=== PATIENT | female | born 1940 | race Caucasian/White ===

== ENCOUNTER 2022-09-23 18:28 | Outpatient (RCR) | payer MEDICARE, OTHER, SELFPAY | END 2022-10-17 23:59 | disposition home or self-care (01) | LOC: MM 18:28 | PROVIDERS: PCP Internal Medicine; Visit Provider Internal Medicine | DX: Z51.81 Encounter for therapeutic drug level monitoring (principal); Z79.01 Long term (current) use of anticoagulants; I48.0 Paroxysmal atrial fibrillation | CPT/HCPCS: 85610; G0463 ==

== ENCOUNTER 2022-10-22 10:41 | Outpatient (RCR) | payer MEDICARE, OTHER, SELFPAY | END 2022-11-17 17:14 | disposition home or self-care (01) | LOC: MM 10:41 | PROVIDERS: PCP Internal Medicine; Visit Provider Internal Medicine | DX: Z51.81 Encounter for therapeutic drug level monitoring (principal); Z79.01 Long term (current) use of anticoagulants; I48.0 Paroxysmal atrial fibrillation | CPT/HCPCS: 85610; G0463 ==

== ENCOUNTER 2022-11-18 10:05 | Outpatient (RCR) | payer MEDICARE, OTHER, SELFPAY | END 2022-12-18 17:48 | disposition home or self-care (01) | LOC: MM 10:05 | PROVIDERS: PCP Internal Medicine; Visit Provider Internal Medicine | DX: Z51.81 Encounter for therapeutic drug level monitoring (principal); Z79.01 Long term (current) use of anticoagulants; I48.0 Paroxysmal atrial fibrillation ==

== ENCOUNTER 2022-12-19 10:45 | Outpatient (RCR) | payer MEDICARE, OTHER, SELFPAY | END 2023-01-16 17:08 | disposition home or self-care (01) | LOC: MM 10:45 | PROVIDERS: PCP Internal Medicine; Visit Provider Internal Medicine | DX: Z51.81 Encounter for therapeutic drug level monitoring (principal); Z79.01 Long term (current) use of anticoagulants; I48.0 Paroxysmal atrial fibrillation ==

== ENCOUNTER 2023-01-19 03:49 | Outpatient (RCR) | payer MEDICARE, OTHER, SELFPAY | END 2023-02-17 17:49 | disposition home or self-care (01) | LOC: MM 03:49 | PROVIDERS: PCP Internal Medicine; Visit Provider Internal Medicine | DX: Z51.81 Encounter for therapeutic drug level monitoring (principal); Z79.01 Long term (current) use of anticoagulants; I48.0 Paroxysmal atrial fibrillation ==

== ENCOUNTER 2023-02-18 00:35 | Outpatient (RCR) | payer MEDICARE, OTHER, SELFPAY | END 2023-03-19 16:54 | disposition home or self-care (01) | LOC: MM 00:35 | PROVIDERS: PCP Internal Medicine; Visit Provider Internal Medicine | DX: Z51.81 Encounter for therapeutic drug level monitoring (principal); Z79.01 Long term (current) use of anticoagulants; I48.0 Paroxysmal atrial fibrillation ==

== ENCOUNTER 2023-02-25 12:21 | Outpatient (OUT) | payer MEDICARE, OTHER, SELFPAY ==
--- NOTE | 2023-02-25 | MR_ITS ---
The [address] [address] Patient Name: GAGE ALEXANDRE MRN: [id number] date: 1940 Sex: F Assigned Patient Location: MRI Current Patient Location: MRI Accession/Order Number: [id number] Exam Date: 02/25/2023 12:35 Report Date: 02/25/2023 14:14 At the request of: JAMIA JACOBS Procedure: MR angio head wo con EXAMINATION: MR angio head wo con HISTORY: I48.0 paroxysmal a-fib as well as] suggesting something and abdomen was sometimes gets all her COMPARISON: No relevant comparison available. TECHNIQUE: A variety of imaging planes and parameters were utilized for visualization of suspected pathology. Images were performed without contrast. FINDINGS: CEREBRUM: No edema, hemorrhage, mass, acute infarction, or inappropriate atrophy. CEREBELLUM: No edema, hemorrhage, mass, acute infarction, or inappropriate atrophy. BRAINSTEM: No edema, hemorrhage, mass, acute infarction, or inappropriate atrophy. CSF SPACES: 8 mm rounded area of absent versus very low signal on T2 and T1 sequences at the anterior inferior margin of the left sylvian fissure. No internal blood flow on [id number] images Ventricles, cisterns, and sulci are appropriate for age. No hydrocephalus, subarachnoid hemorrhage, or mass. SKULL: No mass or other significant visible lesion. SINUSES: Complete opacification of right maxillary sinus; no fluid level. ORBITS: Limited views are unremarkable. OTHER: Negative. MR/MR angio head wo con IMPRESSION: 1. No intercranial hemorrhage, mass, or mass effect. 2. 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 Calcification is suspected. A CT study of the brain without and with IV contrast could be performed for further evaluation if needed. 3. Right maxillary marked chronic sinusitis; possibly acute on chronic sinusitis. 4. Age consistent atrophy and chronic small vessel ischemic changes. Electronically authenticated by: MELINA ALEXANDRE Date: 02/25/2023 14:14
--- NOTE | 2023-02-25 | ECG_ITS ---
The [facility] Test Date: 2023-02-25 Pat Name: Keri Herron Department: Room: - Gender: Female Registered Nurse Renal: : 1940 Requested By: JAMIA JACOBS Order Number: [id number] Reading MD: EZIO CUELLAR Measurements Intervals [place] Rate: 57 P: 89 MT: 179 QRS: 83 QRSD: 80 T: 55 QT: 415 QTc: 405 Interpretive Statements SINUS BRADYCARDIA WITH SINUS ARRHYTHMIA No previous ECG available for comparison Electronically Signed On 02-27-2023 6:20:01 EST by EZIO CUELLAR
--- OUTSIDE RECORDS SUMMARY | 2023-04-07 14:13 | XMS_ITS | CCD ---
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 Name Role Phone PRERNA, Abdias Joshi Attending Unavailable NILL, Abdias Joshi Attending Unavailable NILL, Abdias Joshi Attending Unavailable Wali Flores Unavailable MARK, DR BLANDON Primary Care Unavailable BALL, DR BLANDON Consulting Unavailable BALL, DR BLANDON Attending Unavailable BALL, DR BLANDON Admitting Unavailable BALL, DR BLANDON Primary Care Unavailable FAWWAD, H Admitting Unavailable FAWWAD, SHAIKH aJylan Attending Unavailable BALL, DR BLANDON Primary Care Unavailable FAWWAD, H Admitting Unavailable FAWWAD, H Attending Unavailable BALL, DR BLANDON Primary Care Unavailable FAWWAD, MAYER H Admitting Unavailable FAWWAD, H Attending Unavailable FAWWAD, H Admitting Unavailable FAWWAD, MAYER H Attending Unavailable BALL, DR BLANDON Primary Care Unavailable FAWWAD, SHAIKH Jaylan Attending Unavailable FAWWAD, H Admitting Unavailable BALL, DR BLANDON Primary Care Unavailable NADEREAdi, DR VINCENT Lopez Attending Unavailable NILL ., DR YOO Procedure Practitioner Paula ANNE, DR KEVYN Joshi Consulting Unavailable BALL, DR BLANDON Primary Care Unavailable ENOCEREAdi, DR VINCENT Lopez Admitting Unavailable SMITH ., DR JENNIFER Feuntes Consulting Unavailable WEST, DR JANE Godoy Consulting Unavailable SHELLIEEBKATEY, DR ROHAN Joshi Consulting Unavailable NADEREAdi, DR VINCENT Lopez Consulting Unavailable NILL ., DR YOO Consulting Unavailable AGUBOSIM, FUAD Consulting Unavailable VORA, SANDRO Consulting Unavailable REQUEST, DR MALLORY LISTED Consulting Unavaila ble REQUEST, DR MALLORY LISTED Attending Unavaila ble MARK, DR BLANDON Primary Care Unavailable REQUEST, DR MALLORY LISTED Admitting Unavaila ble BALL, DR BLANDON Primary Care Unavailable BALL, DR BLANDON Attending DR WALI Maxwell Admitting Unavailable BALL, DR BLANDON Primary Care Vianey FLORES, DR BLANDON Consulting Unavailable MARK, DR BLANDON Attending Unavailable MARK, DR BLANDON Admitting Unavailable Allergies Allergy Classification Reported Allergen(s) Allergy Type Date of Onset Reaction(s) Facility (3 sources) HYDROmorphone; Translations: [HYDROmorphone] Drug Allergy [address] [facility] Repository (3 sources) Penicillins; Translations: [penicillins] Propensity to adverse reactions (disorder) [address] [facility] Repository (11 sources) penicillAMINE Drug Allergy Unknown [employer] Other (7 sources) Substance with penicillin structure and antibacterial mechanism of action (substance) Drug allergy 2 PENICILLINS [employer] [facility] Other Medications Current Medications Medication Drug Class(es) Dates Sig (Normalized) Sig (Original) [id number] actuat albuterol 0.09 mg/actuat metered dose inhaler (20 sources) beta2-Adrenergic Agonist Start: 02-17-2023 take 2 puff(s) by inhalation every four hours as needed for cough Albuterol Sulfate HFA 108 (90 Base) MCG/ACT 2 puffs Inhalation every 4 hrs as needed for cough, SOB for 30 days Jan, Active Start: 02-17-2023 take 2 puff(s) by in halation every four hours as needed for cough Albuterol Sulfate HFA 108 (90 Base) MCG/ACT 2 puffs Inhalation every 4 hrs as needed for cough, SOB for 30 days Jan, Active Start: 02-17-2023 take 2 puff(s) by in halation every four hours as needed for cough Albuterol Sulfate HFA 108 (90 Base) MCG/ACT 2 puffs Inhalation every 4 hrs as needed for cough, SOB for 30 days Jan, Active Start: 04-27-2022 Ventolin HFA 1 08 (90 Base) MCG/ACT 1 Inhalation every 4 hrs for 30 days Apr, Not-Taking/PRN take 1 puff(s) by in halation every four hours as needed Ventolin HFA 108 (90 Base) MCG/ACT 1 puff as needed Inhalation every 4 hrs Active atorvastatin 20 mg oral tablet (3 sources) HMG-CoA Reductase Inhibitor Start: 03-23-2023 take 1 tablet by mouth every twenty-four hours Atorvastatin Calcium 20 MG 1 tablet Orally Once a day for 30 days Mar, Active cholecalciferol 0.05 mg oral capsule (6 sources) Vitamin D Prevagen 10 MG a s directed Orally Active colestipol hydrochloride 1000 mg oral tablet (11 sources) Bile Acid Sequestrant take 2 tablets by mouth once daily Colestipol HCl 1 GM TAKE 2 TABLETS BY MOUTH EVERY DAY FOR 30 DAYS Active take 2 tablets by mouth once brady ly Colestipol HCl 1 GM TAKE 2 TABLETS BY MOUTH EVERY DAY FOR 30 DAYS Active donepezil hydrochloride 5 mg oral tablet (1 source) Start: 03-31-2023 take 1 tablet by mouth every twenty-four hours Donepezil HCl 5 MG 1 tablet at bedtime Orally Once a day for 30 days Mar, Active montelukast 10 mg oral tablet (16 sources) Leukotriene Receptor Antagonist Start: 04-27-2022 Montelukast Sodium 10 MG 1 Orally Once a day for 30 days Apr, Active warfarin sodium 4 mg oral tablet (11 sources) Vitamin K Antagonist take 1 tablet by mouth once daily Warfarin Sodium 4 MG TAKE 1 TABLET BY MOUTH EVERY DAY Active Completed/Discontinued Medications Medication Drug Class(es) Dates Sig (Normalized) Sig (Original) metoprolol tartrate 25 mg oral tablet (16 sources) beta-Adrenergic Lisa Start: 04-27-2022 Metoprolol Tartrate 25 MG 1 Orally daily as needed for HR > 100 for 30 day(s) Apr, Not-Taking/PRN take 1 tablet by manda th every twelve hours Metoprolol Tartrate 25 MG 1 tablet with food Orally Twice a day Active Problems Active Problems Problem Classification Problem Date Documented Date Episodic/Chronic Abdominal hernia (11 sources) Inguinal hernia; Translations: [Unilateral inguinal hernia, without obstruction or gangrene, not specified as recurrent] Episodic Anxiety disorders (14 sources) Generalized anxiety disorder; Translations: [Generalized anxiety disorder] Chronic Asthma (14 sources) Mild intermittent asthma; Translations: [Mild intermittent asthma, uncomplicated] Chronic Biliary tract disease (15 sources) Postcholecystectomy syndrome; Translations: [Postcholecystectomy syndrome] Onset: Episodic Cardiac dysrhythmias (20 sources) Paroxysmal atrial fibrillation; Translations: [Paroxysmal atrial fibrillation] Onset: 2 Chronic Chronic kidney disease (20 sources) Chronic kidney disease stage 3A ; Translations: [Stage 3a chronic kidney disease] Chronic Coagulation and hemorrhagic disorders (1 source) Thrombocytopenia, unspecified; Translations: [THROMBOCYTOPENIA UNSPECIFIED] Onset: 2 Chronic Delirium, dementia, and amnestic and other cognitive disorders (2 sources) Senile dementia; Translations: [Alzheimer's disease with late onset] Chronic Disorders of lipid metabolism (4 sources) Hypercholesterolemia; Translations: [Pure hypercholesterolemia, unspecified] Chronic Esophageal disorders (11 sources) Gastro-esophageal reflux disease with esophagitis; Translations: [Gastroesophageal reflux disease with esophagitis without hemorrhage] Chronic Fracture of upper limb (11 sources) Closed fracture of scapula; Translations: [Fracture of unspecified part of scapula, unspecified shoulder, initial encounter for closed fracture] Episodic Intestinal obstruction without hernia (14 sources) Small bowel obstruction; Translations: [Unspecified intestinal obstruction, unspecified as to partial versus complete obstruction] Onset: 2 Episodic Malaise and fatigue (14 sources) Fatigue; Translations: [Other fatigue] Onset: 2 Episodic Osteoporosis (14 sources) Senile osteoporosis; Translations: [Age-related osteoporosis without current pathological fracture] Chronic Other aftercare (5 sources) Encounter for therapeutic drug level monitoring; Translations: [ENC THERAPEUTC DRUG LEVL MONITORING] Onset: 3 Episodic Other aftercare (1 source) shelter (current) use of anticoagulants; Translations: [SENIOR LIVING CURRNT USE ANTICOAGULANTS] Onset: 3 Episodic Other circulatory disease (1 source) Other specified symptoms and signs involving the circulatory and respiratory systems Episodic Other gastrointestinal disorders (11 sources) Irritable bowel syndrome with diarrhea; Translations: [Irritable bowel syndrome with diarrhea] Chronic Other gastrointestinal disorders (1 source) Irritable bowel syndrome with diarrhea Chronic Other gastrointestinal disorders (11 sources) Personal history of other diseases of the digestive system; Translations: [History of small bowel obstruction] Episodic Other hereditary and degenerative nervous system conditions (6 sources) Impaired cognition; Translations: [Mild cognitive impairment, so stated] Chronic Other hereditary and degenerative nervous system conditions (3 sources) Mild cognitive impairment, so stated Chronic Other nervous system disorders (11 sources) Paresthesia; Translations: [Paresthesia of skin] Episodic Other nervous system disorders (1 source) Paresthesia of skin Episodic Other nutritional; endocrine; and metabolic disorders (10 sources) Underweight; Translations: [Underweight] Episodic Other nutritional; endocrine; and metabolic disorders (1 source) Underweight; Translations: [Underweight] Episodic Peripheral and visceral atherosclerosis (1 source) Vascular disorder of intestine, unspecified; Translations: [VASCULAR DISORDER INTESTINE UNS] Onset: 2 Chronic Peripheral and visceral atherosclerosis (12 sources) Infarction of small intestine; Translations: [Acute infarction of small intestine, extent unspecified] Episodic Residual codes; unclassified (11 sources) History of excision of small intestine; Translations: [Acquired absence of other specified parts of digestive tract] Episodic Residual codes; unclassified (11 sources) Mammogram declined; Translations: [Procedure and treatment not carried out because of patient's decision for unspecified reasons] Episodic Residual codes; unclassified (2 sources) Procedure and treatment not carried out because of patient's decision for unspecified reasons Episodic Unclassified (1 source) CONTACT W/AND (SUSP) EXPOS COVID-19; Translations: [CONTACT W/AND (SUSP) EXPOS COVID-19] Onset: 2 Past or Other Problems Problem Classification Problem Date Documented Da te Episodic/Chronic Chronic kidney disease (8 sources) Chronic kidney disease; Translations: [CHRONIC KIDNEY DISEASE STAGE 3B] Onset: 01-24-2022 Conditions associated with dizziness or vertigo (1 source) Dizziness and giddiness; Translations: [DIZZINESS AND GIDDINESS] Onset: 04-05-2022 Episodic Esophageal disorders (1 source) Esophageal disorders Genitourinary symptoms and ill-defined conditions (2 sources) Other difficulties with micturition; Translations: [Retention of urine, unspecified] Onset: 01-02-2022 Episodic Other liver diseases (1 source) Abnormal levels of other serum enzymes; Translations: [ABNORMAL LEVELS OTHER SERUM ENZYMES] Onset: 01-02-2022 Episodic Other screening for suspected conditions (not mental disorders or infectious disease) (1 source) Other specified abnormal findings of blood chemistry; Translations: [OTH SPEC ABNORMAL FINDINGS BLD CHEM] Onset: 01-02-2022 Episodic Residual codes; unclassified (2 sources) Acquired absence of other specified parts of digestive tract; Translations: [ACQ ABSENCE OTH PART DIGESTV TRACT] Onset: 01-02-2022 Episodic Residual codes; unclassified (1 source) Acquired absence of both cervix and uterus; Translations: [ACQUIRED ABSENCE BOTH CERVIX AND UTERUS] Onset: 01-02-2022 Episodic Unclassified (1 source) Dementia in other diseases classified elsewhere, mild, without behavioral disturbance, psychotic disturbance, mood disturbance, and anxiety F02.A0 Results Test Name Value Interpretation Reference Range Facil ity CBC AUTO DIFFon 03-31-2022 BASO # 0.1 103/ul Normal 0.0-0.1 [facility] Comment on above: Performed By: #### C BC #### [facility] [address] [place] [address] Dr. Jemma Karu Basophils/100 WBC (Bld) 1.3 % Normal 0.2-2.0 [place] Comment on above: Performed By: #### C BC #### [facility] [address] [place] [address] Dr. Jemma Kaur EO # 0.2 103/ul Normal 0.0-0.7 [facility] Comment on above: Performed By: #### C BC #### [facility] [address] [place] [address] Dr. Jemma Kaur Eosinophils/100 WBC (Bld) 2.5 % Normal 0.9-7.0 [facility] Comment on above: Performed By: #### C BC #### [facility] [address] [place] [address] Dr. Jemma Kaur Erythrocyte distribution wid th (RBC) [Ratio] 12.3 % Normal 11.0-15.0 [facility] Comment on above: Performed By: #### C BC #### [facility] [address] [place] [address] Dr. Jemma Kaur Hematocrit (Bld) [Volume fraction] 43.6 % Normal 3 6.0-48.0 [facility] Comment on above: Performed By: #### C BC #### [facility] [address] [place] [address] Dr. Jemma Kaur Hemoglobin (Bld) [Mass/Vol] 14.7 g/dL Normal 12.0-16. 0 [facility] Comment on above: Performed By: #### C BC #### [facility] [address] [address] [address] Jemma Kaur IG # 0.02 10e3/ul Normal 0.00-0.03 [facility] Comment on above: Performed By: #### C BC #### [facility] [address] [address] [address] Jemma Kaur IG % 0.3 % Normal 0.0-0.5 [facility] Comment on above: Performed By: #### C BC #### [facility] [address] [place] [address] Dr. Jemma Kaur LYMPH # 1.2 103/ul Normal 1.2-3.8 [facility] Comment on above: Performed By: #### C BC #### [facility] [address] [place] [address] Dr. Jemma Kaur Lymphocytes/100 WBC (Bld) 18.7 % Critically low 20.5-6 0.0 [facility] Comment on above: Performed By: #### C BC #### [facility] [address] [place] [address] Dr. Jemma Kaur MANUAL DIFF REQ NO Normal [facility] Comment on above: Performed By: #### C BC #### [facility] [address] [place] [address] Dr. Jemma Kaur MCH (RBC) [Entitic mass] 31.5 pg Normal 26.7-34.0 [facility] Comment on above: Performed By: #### C BC #### [facility] [address] [place] [address] Dr. Jemma Kaur MCHC (RBC) [Mass/Vol] 33.7 g/dL Normal 29.9-35.2 [facility] Comment on above: Performed By: #### C BC #### [facility] [address] [place] [address] Dr. Jemma Kaur MCV (RBC) [Entitic vol] 93.6 fL Normal 81.0-99.0 [place] Comment on above: Performed By: #### C BC #### [facility] [address] [place] [address] Dr. Jemma Kaur MONO # 0.6 103/ul Normal 0.3-0.8 [facility] Comment on above: Performed By: #### C BC #### [facility] [address] [place] [address] Dr. Jemma Kaur Monocytes/100 WBC (Bld) 9.3 % Normal 1.7-12.0 [place] Comment on above: Performed By: #### C BC #### [facility] [address] [place] [address] Dr. Jemma Kaur NEUT # 4.3 103/ul Normal 1.4-6.5 [facility] Comment on above: Performed By: #### C BC #### [facility] [address] [place] [address] Dr. Jemma Kaur Neutrophils/100 WBC (Bld) 67.9 % Normal 43.0-75.0 [facility] Comment on above: Performed By: #### C BC #### [facility] [address] [place] [address] Dr. Jemma Kaur Platelet mean volume (Bld) [ Entitic vol] 10.2 fL Normal 9.5-13.5 [facility] Comment on above: Performed By: #### C BC #### [facility] [address] [place] [address] Dr. Jemma Kaur PLT 159 103/ul Normal 150-450 [facility] Comment on above: Performed By: #### C BC #### [facility] [address] [place] [address] Dr. Jemma Kaur RBC 4.66 106/ul Normal 4.20-5.40 [facility] Comment on above: Performed By: #### C BC #### [facility] [address] [place] [address] Dr. Jemma Kaur WBC 6.4 103/ul Normal 4.0-11.0 [facility] Comment on above: Performed By: #### C BC #### [facility] [address] [address] [address] Jemma Kaur PROF 14(COMP METB)on 022 Albumin [Mass/Vol] 3.4 g/dL Normal 3.4-5.0 [facility] Comment on above: Performed By: #### L IPA, BMP #### [facility] [address] [address] [address] Jemma Kaur Albumin/Globulin [Mass ratio] 1.0 {ratio} Normal [facility] Comment on above: Performed By: #### L IPA, BMP #### [facility] [address] [address] [address] Jemma Kaur ALP [Catalytic activity/Vol] 67 U/L Normal 46-116 [facility] Comment on above: Performed By: #### L IPA, BMP #### [facility] [address] [place] [address] Dr. Jemma Kaur ALT [Catalytic activity/Vol] 15 U/L Normal 14-59 [facility] Comment on above: Performed By: #### L IPA, BMP #### [facility] [address] [address] [address] Jemma Kaur Anion gap [Moles/Vol] 7.8 mmol/L Normal [facility] Comment on above: Performed By: #### L IPA, BMP #### [facility] [address] [address] [address] Jemma Kaur AST [Catalytic activity/Vol] 19 U/L Normal 15-37 [facility] Comment on above: Performed By: #### L IPA, BMP #### [facility] [address] [address] [address] Jemma Kaur Bilirubin [Mass/Vol] 1.2 mg/dL Critically high 0.2-1.0 [facility] Comment on above: Performed By: #### L IPA, BMP #### [facility] [address] [place] [address] Dr. Jemma Kaur Calcium [Mass/Vol] 8.8 mg/dL Normal 8.5-10.1 [facility] Comment on above: Performed By: #### L IPA, BMP #### [facility] [address] [address] [address] Jemma Kaur Chloride [Moles/Vol] 103 mmol/L Normal 98-107 [facility] Comment on above: Performed By: #### L IPA, BMP #### [facility] [address] [address] [address] Jemma Kaur CO2 [Moles/Vol] 31.1 mmol/L Normal 21.0-32.0 [facility] Comment on above: Performed By: #### L IPA, BMP #### [facility] [address] [address] [address] Jemma Kaur Creatinine [Mass/Vol] 0.85 mg/dL Normal 0.55-1.02 [facility] Comment on above: Performed By: #### L IPA, BMP #### [facility] [address] [address] [address] Jemma Kaur EGFR-AF EMIRATI >60 Normal >=60 [facility] Comment on above: Performed By: #### L IPA, BMP #### [facility] [address] [address] [address] Jemma Kaur EGFR-NON AF EMIRATI >60 Normal >=60 [facility] Comment on above: Performed By: #### L IPA, BMP #### [facility] [address] [address] [address] Jemma Kaur Globulin (S) [Mass/Vol] 3.5 g/dL Normal [facility] Comment on above: Performed By: #### L IPA, BMP #### [facility] [address] [address] [address] Jemma Kaur Glucose [Mass/Vol] 78 mg/dL Normal 74-106 [facility] Comment on above: Performed By: #### L IPA, BMP #### [facility] [address] [address] [address] Jemma Kaur Potassium [Moles/Vol] 3.9 mmol/L Normal 3.5-5.1 [facility] Comment on above: Performed By: #### L IPA, BMP #### [facility] [address] [place] [address] Dr. Jemma Kaur Protein [Mass/Vol] 6.9 g/dL Normal 6.4-8.2 [facility] Comment on above: Performed By: #### L IPA, BMP #### [facility] [address] [place] [address] Dr. Jemma Kaur Sodium [Moles/Vol] 138 mmol/L Normal 136-145 [facility] Comment on above: Performed By: #### L IPA, BMP #### [facility] [address] [place] [address] Dr. Jemma Kaur Urea nitrogen [Mass/Vol] 14.0 mg/dL Normal 7.0-18.0 [facility] Comment on above: Performed By: #### L IPA, BMP #### [facility] [address] [place] [address] Dr. Jemma Kaur Urea nitrogen/Creatinine [Mass ratio] 16.5 mg/mg Normal [facility] Comment on above: Performed By: #### L IPA, BMP #### [facility] [address] [place] [address] Dr. Jemma Kaur TSHon 03-31-2022 TSH 1.710 uIU/mL Normal 0.358-3.740 [facility] Comment on above: Performed By: #### L IPA, BMP #### [facility] [address] [place] [address] Dr. Jemma Kaur PROF CHEM 8 (BAS METB)on Anion gap [Moles/Vol] 8.2 mmol/L Normal [facility] Comment on above: Performed By: #### C BCMAN #### [facility] [address] [place] [address] Dr. Jemma Kaur Calcium [Mass/Vol] 9.3 mg/dL Normal 8.5-10.1 [facility] Comment on above: Performed By: #### C BCMAN #### [facility] [address] [place] [address] Dr. Jemma Kaur Chloride [Moles/Vol] 105 mmol/L Normal 98-107 [facility] Comment on above: Performed By: #### C BCMAN #### [facility] [address] [address] [address] Jemma Kaur CO2 [Moles/Vol] 31.9 mmol/L Normal 21.0-32.0 [facility] Comment on above: Performed By: #### C BCMAN #### [facility] [address] [address] [address] Jemma Kaur Creatinine [Mass/Vol] 0.86 mg/dL Normal 0.55-1.02 [facility] Comment on above: Performed By: #### C BCVANESA #### [facility] [address] [address] [address] Jemma Kaur EGFR-AF EMIRATI >60 Normal >=60 [facility] Comment on above: Performed By: #### C BCVANESA #### [facility] [address] [address] [address] Jemma Kaur EGFR-NON AF EMIRATI >60 Normal >=60 [facility] Comment on above: Performed By: #### C BCVANESA #### [facility] [address] [address] [address] Jemma Kaur Glucose [Mass/Vol] 104 mg/dL Normal 74-106 [facility] Comment on above: Performed By: #### C BCMAN #### [facility] [address] [address] [address] Jemma Kaur Potassium [Moles/Vol] 4.1 mmol/L Normal 3.5-5.1 [facility] Comment on above: Performed By: #### C BCMAN #### [facility] [address] [address] [address] Jemma Kaur Sodium [Moles/Vol] 141 mmol/L Normal 136-145 [facility] Comment on above: Performed By: #### C BCMAN #### [facility] [address] [address] [address] Jemma Kaur Urea nitrogen [Mass/Vol] 13.0 mg/dL Normal 7.0-18.0 [facility] Comment on above: Performed By: #### C ZIYAD #### [facility] [address] [address] [address] Jemma Kaur Urea nitrogen/Creatinine [Mass ratio] 15.1 mg/mg Normal [facility] Comment on above: Performed By: #### C ZIYAD #### [facility] [address] [address] [address] Jemma Kaur UA RANDOM W/MICROSCOPICon BACTERIA NONE SEEN Normal NONE SEEN [facility] Comment on above: Performed By: #### U AMIC ####[facility] [address] [address]Dr. Jemma Kaur Bilirubin Ql (U) Negative Normal NEGATIVE [facility] Comment on above: Performed By: #### U AMIC ####[facility] [address] [address]Dr. Jemma Kaur CAST NONE SEEN Normal NONE SEEN [facility] Comment on above: Performed By: #### U AMIC ####[facility] [address] [address]Dr. Jemma Kaur Clarity (U) CLEAR Normal CLEAR [facility] Comment on above: Performed By: #### U AMIC ####[facility] [address] [address]Dr. Jemma Kaur Color (U) LT. YELLOW Normal YELLOW [facility] Comment on above: Performed By: #### U AMIC ####[facility] [address] [address]Dr. Jemma Kaur Crystals LM Nom (Urine sed) NONE SEEN Normal NONE SEE N [facility] Comment on above: Performed By: #### U AMIC ####[facility] [address] [place], [place] [address]Dr. Jemma Kaur Epithelial cells LM Ql (Urine sed) FEW Abnormal N ONE SEEN /RARE [facility] Comment on above: Performed By: #### U AMIC ####[facility] [address] [place], [place] [address]Dr. Jemma Kaur Glucose Ql (U) Negative Normal NEGATIVE [facility] Comment on above: Performed By: #### U AMIC ####[facility] [address] [place], [place] [address]Dr. Jemma Kaur Hemoglobin Ql (U) Negative Normal NEGATIVE The [facility] Comment on above: Performed By: #### U AMIC ####[facility] Ex[address] [place], [place] [address]Dr. Jemma Vincent Ketones Ql (U) Negative Normal NEGATIVE [facility] Comment on above: Performed By: #### U AMIC ####[facility] Z[address] [place], [place] [address]Dr. Jemma Kaur LEUKOCYTES Negative Normal NEGATIVE [facility] Comment on above: Performed By: #### U AMIC ####[facility] E[address] [place], [place] [address]Dr. Jemma Kaur MUCOUS NONE SEEN Normal NONE SEEN [facility] Comment on above: Performed By: #### U AMIC ####[facility] [address] [place], [place] [address]Dr. Jemma Vincent Nitrite Ql (U) Negative Normal NEGATIVE [facility] Comment on above: Performed By: #### U AMIC ####[facility] [address] [place], [place] [address]Dr. Jemma Kaur pH (U) 6.0 [pH] Normal 5-9 [facility] Comment on above: Performed By: #### U AMIC ####[facility] T[address] [place], [place] [address]Dr. Jemma Kaur RBC NONE SEEN Abnormal 0-2 [facility] Comment on above: Performed By: #### U AMIC ####[facility] [address] [place], [place] [address]Dr. Jemma Kaur SPEC GRAVITY 1.015 Normal 1.005-<=1.025 The [facility] Comment on above: Performed By: #### U AMIC ####[facility] [address] [place], [place] [address]Dr. Jemma Kaur UA PROTEIN Negative Normal NEGATIVE/ TRACE The [facility] Comment on above: Performed By: #### U AMIC ####[facility] [address] [place], [place] [address]Sk. Jemma Kaur Urobilinogen Qn (U) 0.2 {Rober'U}/dL Normal 0.2 - 1. 0 [facility] Comment on above: Performed By: #### U AMIC ####[facility] [address] [place], [place] [address]Pq. Jemma Kaur WBC NONE SEEN Normal NONE SEEN [facility] Comment on above: Performed By: #### U AMIC ####[facility] [address] [place], [place] [address]Fi. Jemma Vincent General Surgery Office/Clini c Noteon 12-27-2021 General Surgery Office/Clinic Note Chief Complaint post operative follow up HPI Staff 9 day post operative follow up post exploratory laparotomy with small bowel resection. Minimal discomfort, taking Tylenol 1000mg BID. Denies bleeding or drainage. Reports stools are mostly liquid. Appetite fair. History of Present Illness 9 days s/p exploratory laparotomy for sbo, with GRANT and small bowel resection with enteroenterostomy; doing well; still with loose stools, no N/V; decreased appetite, but tolerating small meals; no fevers, no drainage from incision; taking Tylenol for soreness. Review of Systems PHQ Score Initial Depression Screen Score: 0 ROS - Provider Constitutional: no fever, no sweats, no weight loss. Eyes: no glasses, no blurred vision, no visual loss. ENMT: no dentures, no hoarseness, no swallowing difficulties, no hearing loss, no ear infection(s), no nose bleeds. Cardiovascular: normal blood pressure, no chest pain, regular heartbeat, no heart murmur. Respiratory: no shortness of breath, no cough, no asthma, no wheezing. Gastrointestinal: no nausea, no vomiting, no diarrhea, no constipation, no blood in stool, no change in bowel habits, no abdominal pain, no hepatitis. Genitourinary: no kidney stones, no urine infection, no dysuria. Musculoskeletal: no pain, no weakness. Skin: no changing moles, no rash, no skin lumps. Neurologic: no seizures, no epilepsy, no headache. Psychiatric: no emotional or psychiatric problem. Heme/Lymph: no bleeding problems, no anemia, no blood clots, no transfusions. Allergy/Immunologic: no swollen lymph nodes/glands, no IV drug abuse. Other: Additional ROS info: Except as noted in the above Review of Systems and in the History of Present Illness, all other systems have been reviewed and are negative or noncontributory. Physical Exam abd: soft, normal bs, nondistended, incision healing well, glue intact, no erythema or drainage, no ecchymoses. Assessment/Plan 1. 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 2. 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 Medications albuterol HFA 90 mcg/inh MDI, 2 puff(s), Inhalation, q6hr, PRN Multi Vitamins oral tablet, 1 tab(s), Oral, Daily Allergies HYDROmorphone (Unknown) penicillins (Unknown) Social History Alcohol - Denies Alcohol Use, 12/25/2021 Substance Abuse - Denies Substance Abuse, 12/25/2021 Tobacco Never (less than 100 in lifetime) Tobacco Use:. Never Smokeless Tobacco Use:., 12/25/2021 Family History Alzheimer's disease: Father. Cancer: Mother. Normal [facility] Comment on above: Result Comment: Elec tronically Signed By: PRERNA MAGANA, Abdias Vieira\Date and Time Signed: 12/27/21 17:12 EDT Ambulatory Visit Summaryon 0 12-25-2021 Ambulatory Visit Summary SHELLIEKERI OVALLE :1940 Visit Date:12/25/2021 Ambulatory Visit Instructions Your Care Team Attending Physician - PRERNA MAGANA, Abdias Joshi Primary Care Physician - WALI FLORES DO This Is Your Medications List albuterol (albuterol HFA 90 mcg/inh MDI) multivitamin (Multi Vitamins oral tablet) Procedures Performed Exploratory laparotomy (12/16/2021), Small bowel resection (12/16/2021), Abdominal hysterectomy, Cholecystectomy. Medications What How Much When Instructions Unchanged albuterol (albuterol HFA 90 mcg/ inh MDI) 2 Puffs Inhalation Every 6 hours as needed for Shortness of breath or wheezing Unchanged multivitamin (Multi Vitamins oral tablet) 1 Tablets By Mouth Every day Allergies HYDROmorphone (Unknown) penicillins (Unknown) Problems Ongoing - Any problem that you are currently receiving treatment for. Asthma History of pancreatitis Small bowel obstruction Normal [facility] RAD - MISCon 12-24-2021 RAD - MIS [id number] :[id number] [facility] CBC AUTO DIFFon 12-21-2021 BASO # 0.0 103/ul Normal 0.0-0.1 [facility] ostal Comment on above: Performed By: #### L IPA, BMP #### [facility] [address] [place] [address] Dr. Jemma Kaur Basophils/100 WBC (Bld) 0.7 % Normal 0.2-2.0 [place] Comment on above: Performed By: #### L IPA, BMP #### [facility] [address] [place] [address] Dr. Jemma Kaur EO # 0.4 103/ul Normal 0.0-0.7 [facility] Comment on above: Performed By: #### L IPA, BMP #### [facility] [address] [place] [address] Dr. Jemma Kaur Eosinophils/100 WBC (Bld) 7.1 % Critically high 0.9-7 .0 [facility] Comment on above: Performed By: #### L IPA, BMP #### [facility] [address] [place] [address] Dr. Jemma Kaur Erythrocyte distribution wid th (RBC) [Ratio] 12.3 % Normal 11.0-15.0 [facility] Comment [facility]: Performed By: #### L IPA, BMP #### [facility] [address] [place] [address] Dr. Jemma Kaur Hematocrit (Bld) [Volume fraction] 36.5 % Normal 3 6.0-48.0 [facility] Comment on above: Performed By: #### L IPA, BMP #### [facility] [address] [place] [address] Dr. Jemma Kaur Hemoglobin (Bld) [Mass/Vol] 12.3 g/dL Normal 12.0-16. 0 [facility] Comment on above: Performed By: #### L IPA, BMP #### [facility] [address] [place] [address] Dr. Jemma Kaur IG # 0.03 10e3/ul Normal 0.00-0.03 [facility] Comment on above: Performed By: #### L IPA, BMP #### [facility] [address] [place] [address] Dr. Jemma Kaur IG % 0.5 % Normal 0.0-0.5 [facility] Comment on above: Performed By: #### L IPA, BMP #### [facility] [address] [place] [address] Dr. Jemma Kaur LYMPH # 0.8 103/ul Critically low 1.2-3.8 [facility] Comment on above: Performed By: #### L IPA, BMP #### [facility] [address] [place] [address] Dr. Jemma Kaur Lymphocytes/100 WBC (Bld) 14.5 % Critically low 20.5-6 0.0 [facility] Comment on above: Performed By: #### L IPA, BMP #### [facility] [address] [place] [address] Dr. Jemma Kaur MANUAL DIFF REQ NO Normal [facility] Comment on above: Performed By: #### L IPA, BMP #### [facility] [address] [address] [address] Jemma Kaur MCH (RBC) [Entitic mass] 31.6 pg Normal 26.7-34.0 [facility] Comment on above: Performed By: #### L IPA, BMP #### [facility] [address] [place] [address] Dr. Jemma Kaur MCHC (RBC) [Mass/Vol] 33.7 g/dL Normal 29.9-35.2 [facility] Comment on above: Performed By: #### L IPA, BMP #### [facility] [address] [place] [address] Dr. Jemma Kaur MCV (RBC) [Entitic vol] 93.8 fL Normal 81.0-99.0 [place] Comment on above: Performed By: #### L IPA, BMP #### [facility] [address] [place] [address] Dr. Jemma Kaur MONO # 0.7 103/ul Normal 0.3-0.8 [facility] Comment on above: Performed By: #### L IPA, BMP #### [facility] [address] [place] [address] Dr. Jemma Kaur Monocytes/100 WBC (Bld) 13.2 % Critically high 1.7-12. 0 [facility] Comment on above: Performed By: #### L IPA, BMP #### [facility] [address] [place] [address] Dr. Jemma Kaur NEUT # 3.5 103/ul Normal 1.4-6.5 [facility] Comment on above: Performed By: #### L IPA, BMP #### [facility] [address] [place] [address] Dr. Jemma Kaur Neutrophils/100 WBC (Bld) 64.0 % Normal 43.0-75.0 [facility] Comment on above: Performed By: #### L IPA, BMP #### [facility] [address] [place] [address] Dr. Jemma Kaur Platelet mean volume (Bld) [Entitic vol] 9.7 fL Normal 9.5-13.5 [facility] Comment on above: Performed By: #### L IPA, BMP #### [facility] [address] [place] [address] Dr. Jemma Kaur PLT 172 103/ul Normal 150-450 [facility] Comment on above: Performed By: #### L IPA, BMP #### [facility] [address] [place] [address] Dr. Jemma Kaur RBC 3.89 106/ul Critically low 4.20-5.40 [facility] Comment on above: Performed By: #### L IPA, BMP #### [facility] [address] [place] [address] Dr. Jemma Kaur WBC 5.5 103/ul Normal 4.0-11.0 [facility] Comment on above: Performed By: #### L IPA, BMP #### [facility] [address] [place] [address] Dr. Jemma Kaur LIPASEon 12-21-2021 Lipase [Catalytic activity/Vol] 75.0 U/L Normal 73.0 -393.0 [facility] Comment on above: Performed By: #### C ZIYAD #### [facility] [address] [place] [address] Dr. Jemma Kaur PROF CHEM 8 (BAS METB)on Anion gap [Moles/Vol] 9.3 mmol/L Normal [facility] Comment on above: Performed By: #### C ZIYAD #### [facility] [address] [place] [address] Dr. Jemma Kaur Calcium [Mass/Vol] 8.6 mg/dL Normal 8.5-10.1 [facility] Comment on above: Performed By: #### C ZIYAD #### [facility] [address] [place] [address] Dr. Jemma Kaur Chloride [Moles/Vol] 107 mmol/L Normal 98-107 [facility] Comment on above: Performed By: #### C ZIYAD #### [facility] [address] [place] [address] Dr. Jemma Kaur CO2 [Moles/Vol] 28.6 mmol/L Normal 21.0-32.0 [facility] Comment on above: Performed By: #### C BCMAN #### [facility] [address] [address] [address] Jemma Kaur Creatinine [Mass/Vol] 0.74 mg/dL Normal 0.55-1.02 [facility] Comment on above: Performed By: #### C BCMAN #### [facility] [address] [address] [address] Jemma Kaur EGFR-AF EMIRATI >60 Normal >=60 [facility] Comment on above: Performed By: #### C BCMAN #### [facility] [address] [address] [address] Jemma Kaur EGFR-NON AF EMIRATI >60 Normal >=60 [facility] Comment on above: Performed By: #### C BCMAN #### [facility] [address] [place] [address] Dr. Jemma Kaur Glucose [Mass/Vol] 97 mg/dL Normal 74-106 [facility] Comment on above: Performed By: #### C BCMAN #### [facility] [address] [address] [address] Jemma Kaur Potassium [Moles/Vol] 3.9 mmol/L Normal 3.5-5.1 [facility] Comment on above: Performed By: #### C BCMAN #### [facility] [address] [place] [address] Dr. Jemma Kaur Sodium [Moles/Vol] 141 mmol/L Normal 136-145 [facility] Comment on above: Performed By: #### C BCMAN #### [facility] [address] [address] [address] Jemma Kaur Urea nitrogen [Mass/Vol] 9.0 mg/dL Normal 7.0-18.0 [facility] Comment on above: Performed By: #### C BCMAN #### [facility] [address] [address] [address] Jemma Kaur Urea nitrogen/Creatinine [Mass ratio] 12.2 mg/mg Normal [facility] Comment on above: Performed By: #### C BCMAN #### [facility] [address] [address] [address] Jemma Kaur URINE MICROSCOPIC ONLYon BACTERIA TRACE Abnormal NONE SEEN [facility] Comment on above: Performed By: #### C MREP #### [facility] [address] [place] [address] Dr. Jemma Kaur Bacteria identified Cx Nom (U) NOT INDICATED Normal [facility] Comment on above: Performed By: #### C MREP #### [facility] [address] [place] [address] Dr. Jemma Kaur CAST NONE SEEN Normal NONE SEEN [facility] Comment on above: Performed By: #### C MREP #### [facility] [address] [place] [address] Dr. Jemma Kaur Crystals LM Nom (Urine sed) NONE SEEN Normal NONE SEE N [facility] Comment on above: Performed By: #### C MREP #### [facility] [address] [place] [address] Dr. Jemma Kaur Epithelial cells LM Ql (Urine sed) RARE Normal N ONE SEEN /RARE [facility] Comment on above: Performed By: #### C MREP #### [facility] [address] [place] [address] Dr. Jemma Kaur MUCOUS NONE SEEN Normal NONE SEEN [facility] Comment on above: Performed By: #### C MREP #### [facility] [address] [place] [address] Dr. Jemma Kaur RBC NONE SEEN Abnormal 0-2 [facility] Comment on above: Performed By: #### C MREP #### [facility] [address] [place] [address] Dr. Jemma Kaur WBC 0-2 Abnormal NONE SEEN [facility] Comment on above: Performed By: #### C MREP #### [facility] [address] [place] [address] Dr. Jemma Kaur CARDIAC KEVYN 3-6on 2 CK [Catalytic activity/Vol] 44 U/L Normal 26-192 [facility] Comment on above: Performed By: #### C MREP #### [facility] [address] [place] [address] Dr. Jemma Kaur CK.MB [Mass/Vol] 0.88 ng/mL Normal <=3.60 [facility] Comment on above: Performed By: #### C MREP #### [facility] [address] [place] [address] Dr. Jemma Kaur HSTROP 84.5 pg/mL Critically high 4.0-51.3 [facility] Comment on above: Result Comment: CUT- OFF POINTS HAVE BEEN ESTABLISHED BASED ON THE FOURTH UNIVERSAL DEFINITIONS OF MYOCARDIAL INFARCTION. THE UPPER REFERENCE LIMIT (URL) OF TROPONIN, DEFINED THE 99TH PERCENTILE OF cTnI DISTRIBUTION IN A REFERENCE POPULATION, HAS BEEN CONFIRMED THE DECISION THRESHOLD FOR [place] DIAGNOSIS. test repeated critical value verified Performed By: #### C MREP #### [facility] [address] [place] [address] Dr. Jemma Kaur CBC AUTO DIFFon 12-20-2021 BASO # 0.0 103/ul Normal 0.0-0.1 [facility] Comment on above: Performed By: #### C ZIYAD #### [facility] [address] [place] [address] Dr. Jemma Kaur Basophils/100 WBC (Bld) 0.7 % Normal 0.2-2.0 [place] Comment on above: Performed By: #### C GERMANMAN #### [facility] [address] [place] [address] Dr. Jemma Kaur EO # 0.3 103/ul Normal 0.0-0.7 [facility] Comment on above: Performed By: #### C GERMANMAN #### [facility] [address] [place] [address] Dr. Jemma Kaur Eosinophils/100 WBC (Bld) 5.8 % Normal 0.9-7.0 [facility] Comment on above: Performed By: #### C ZIYAD #### [facility] [address] [place] [address] Dr. Jemma Kaur Erythrocyte distribution wid th (RBC) [Ratio] 12.2 % Normal 11.0-15.0 [facility] Comment on above: Performed By: #### C ZIYAD #### [facility] [address] [place] [address] Dr. Jemma Kaur Hematocrit (Bld) [Volume fraction] 35.8 % Critically low 36.0-48.0 [facility] Comment on above: Performed By: #### C ZIYAD #### [facility] [address] [place] [address] Dr. Jemma Kaur Hemoglobin (Bld) [Mass/Vol] 12.0 g/dL Normal 12.0-16. 0 [facility] Comment on above: Performed By: #### C ZIYAD #### [facility] [address] [place] [address] Dr. Jemma Kaur IG # 0.01 10e3/ul Normal 0.00-0.03 [facility] Comment on above: Performed By: #### C ZIYAD #### [facility] [address] [place] [address] Dr. Jemma Kaur IG % 0.2 % Normal 0.0-0.5 [facility] Comment on above: Performed By: #### C ZIYAD #### [facility] [address] [place] [address] Dr. Jemma Kaur LYMPH # 0.8 103/ul Critically low 1.2-3.8 [facility] Comment on above: Performed By: #### C ZIYAD #### [facility] [address] [place] [address] Dr. Jemma Kaur Lymphocytes/100 WBC (Bld) 12.9 % Critically low 20.5-6 0.0 [facility] Comment on above: Performed By: #### C ZIYAD #### [facility] [address] [place] [address] Dr. Jemma Kaur MANUAL DIFF REQ NO Normal [facility] Comment on above: Performed By: #### C ZIYAD #### [facility] [address] [address] [address] Jemma Kaur MCH (RBC) [Entitic mass] 32.1 pg Normal 26.7-34.0 [facility] Comment on above: Performed By: #### C ZIYAD #### [facility] [address] [place] [address] Dr. Jemma Kaur MCHC (RBC) [Mass/Vol] 33.5 g/dL Normal 29.9-35.2 [facility] Comment on above: Performed By: #### C ZIYAD #### [facility] [address] [place] [address] Dr. Jemma Kaur MCV (RBC) [Entitic vol] 95.7 fL Normal 81.0-99.0 [place] Comment on above: Performed By: #### C ZIYAD #### [facility] [address] [place] [address] Dr. Jemma Kaur MONO # 0.7 103/ul Normal 0.3-0.8 The [facility] Comment on above: Performed By: #### C ZIYAD #### [facility] [address] [place] [address] Dr. Jemma Kaur Monocytes/100 WBC (Bld) 12.1 % Critically high 1.7-12. 0 [facility] Comment on above: Performed By: #### C ZIYAD #### [facility] [address] [place] [address] Dr. Jemma Kaur NEUT # 4.0 103/ul Normal 1.4-6.5 [facility] Comment on above: Performed By: #### C ZIYAD #### [facility] [address] [place] [address] Dr. Jemma Kaur Neutrophils/100 WBC (Bld) 68.3 % Normal 43.0-75.0 The [facility] Comment on above: Performed By: #### C ZIYAD #### [facility] [address] [place] [address] Dr. Jemma Kaur Platelet mean volume (Bld) [ Entitic vol] 10.3 fL Normal 9.5-13.5 [facility] Comment on above: Performed By: #### C BCMAN #### [facility] [address] [place], [place] [address] Dr. Jemma Kaur PLT 164 103/ul Normal 150-450 [facility] Comment on above: Performed By: #### C GERMANMAN #### [facility] [address] [place], [place] [address] Dr. Jemma Kaur RBC 3.74 106/ul Critically low 4.20-5.40 The [facility] Comment on above: Performed By: #### C GERMANMAN #### [facility] [address] [place], [place] [address] Dr. Jemma Kaur WBC 5.9 103/ul Normal 4.0-11.0 [facility] Comment on above: Performed By: #### C GERMANMAN #### [facility] [address] [place], [place] [address] Dr. Jemma Kaur CTA CHEST WO W CONon 022 CTA CHEST WO W CON EXAMINATION: CTA TERRY ST WO W CON HISTORY: SHORTNESS OF BREATH COMPARISON: Chest x-ray 12/16/2021 TECHNIQUE: Axial, Coronal, and Sagittal images were created without and with IV contrast. Dose reduction techniques were achieved by using automated exposure control and/or adjustment of mA and/or kV according to patient size and/or use of iterative reconstruction technique. FINDINGS: LUNGS: Calcified tracheobronchial tree. Minimal consolidation of the lower lobes right greater than left likely representing passive atelectasis. PLEURA: 2.6 cm right and 1.2 cm left pleural effusions VASCULATURE: Normal postcontrast opacification of the central pulmonary arterial tree with no filling defects. CHRISTOPHER: No mass or adenopathy. MEDIASTINUM: No mass or adenopathy. CARDIAC: No enlargement, pericardial thickening, or significant calcification. AORTA: No aortic aneurysm or dissection. Moderate atherosclerosis CHEST WALL: No mass or axillary adenopathy. BONES: No bone lesion or fracture. 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 IMPRESSION: No central pulmonary thromboembolic disease 2.6 cm right and 1.2 cm left pleural effusions with associated atelectasis Electronically authenticated by: JANE ALFARO Date: 2021-12-20 12:59 Normal [facility] D-DIMERon 12-20-2021 D-DIMER 3.80 mg/L FEU Critically high <=0.59 The [facility] Comment on above: Performed By: #### D DIM ####[facility] [address] [place], [place] [address]Ug. Jemma Kaur D-DIMER COMMENTS SEE BELOW Normal [facility] Comment on above: Result Comment: Incr eases in D-Dimer concentration observed with thromboembolic events can be variable due to localization, size, and age of the thrombus. Therefore, a thromboembolic event cannot be diagnosed with certainty on the basis of the reference range. D-Dimers may also be elevated for a variety of disorders including: advanced age, , coronary disease, cancer, liver disease, infection, inflammation, hematoma, DIC, trauma, post-surgery, diabetes, thrombolytic or anticoagulant therapy, stress, and generalized hospitalization. Performed By: #### D DIM ####[facility] [address] [place], [place] [address]Lm. Jemma Kaur ECHOCARDIO M/2D COMPLETEon 0 12-20-2021 ECHOCARDIO M/2D COMPLETE Patient: KERI HERRON Exam Date: 12/20/2021 : 1940 Gender:F Ordering : DR JENNIFER SMITH . Admission #: [id number] Family : DR WALI FLORES D.O. Order #: [id number] CLICK HERE TO VIEW EXAM ECHOCARDIOGRAM REPORT PROCEDURE: CARDIO PULMONARY ECHOCARDIO M/2D COMP INDICATIONS: New atrial fibrillation, elevated TROP COMPARISON: None. DESCRIPTION: COMPLETE ECHOCARDIOGRAM Real-time transthoracic echocardiography with 2D, M-mode, spectral and color flow Doppler performed. QUALITY: Technical quality was good. 67 120# BP 112/81 LEFT VENTRICLE: Normal chamber size. Normal left ventricular wall thickness. Left ventricular systolic function is normal. LV EF: Normal left ventricular ejection fraction, (>55%). DIASTOLIC: Grade II diastolic dysfunction. ATRIAL SEPTUM: LEFT ATRIUM: Mild dilatation. RIGHT ATRIUM: Mild dilatation. RIGHT VENTRICLE: Moderate dilatation. Normal right ventricular systolic function. TRICUSPID VALVE: Normal mobility and thickness. No stenosis with mild regurgitation. No evidence of pulmonary hypertension. RVSP 33 mmHg MITRAL VALVE: Normal mobility and thickness. No evidence of mitral valve stenosis. There is no mitral annular calcification. Mild mitral regurgitation. AORTIC VALVE: Normal trileaflet appearance. Thickened aortic valve. Normal leaflet mobility. No evidence of aortic valve stenosis. Trivial aortic regurgitation. AORTIC ROOT: Normal diameter and appearance. Ascending aorta is normal in size (3.3cm) PULMONIC VALVE: Normal thickness and mobility. No stenosis. No regurgitation. PERICARDIUM: No evidence of pericardial effusion. IVC: IVC is normal in size, with no collapse. PLEURA: CONCLUSION: 1. Left regular systolic function is normal. LVEF is 60%. 2. The right ventricle is mildly dilated with preserved systolic function. 3. Mild biatrial dilatation. 4. Mild mitral and tricuspid regurgitation. 5. Normal right-sided pressures. 6. No pericardial effusion. 7. The patient appears to be in sinus rhythm. Adult Echocardiography Procedure Report Left Ventricle Left Atrium Mitral Valve Right Ventricle Aorta Aortic Valve Peak Velocity (Antegrade Flow): 1.22 m/s, 1.22 m/s AoV Area (Peak Sin): 2.06 cm2, 2.06 cm2 AoV Area (VTI): 2.17 cm2, 2.17 cm2 Tricuspid Valve Peak Velocity (Regurgitant Flow): 2.52 m/s Peak Velocity: 0.50 m/s Pulmonic Valve Peak Velocity: 0.72 m/s Peak Gradient: 2.09 mm[Hg] Right Atrium Dictated by: Wesley Parra M.D. on 12/20/2021 at 17:45 Approved by: Wesley Parra M.D. on 12/20/2021 at 17:50 Normal [facility] LIPASEon 12-20-2021 Lipase [Catalytic activity/Vol] 56.0 U/L Critically low 73.0-393.0 The [facility] Comment on above: Performed By: #### C GERMANMAN #### [facility] [address] [place], [place] [address] Dr. Jemma Kaur MAGNESIUMon 12-20-2021 Magnesium [Mass/Vol] 1.7 mg/dL Critically low 1.8-2.4 [facility] Comment on above: Performed By: #### M G ####[facility] [address] [place], [place] [address]HkDr. Jemma Kaur POINT OF CARE GLUCOSEon 09- Glucose [Mass/Vol] 84 mg/dL Normal 74-106 [facility] Comment on above: Performed By: #### C ZIYAD #### [facility] [address] [address] [address] Jemma Kaur PROF CHEM 8 (BAS METB)on Anion gap [Moles/Vol] 8.7 mmol/L Normal [facility] Comment on above: Performed By: #### C ZIYAD #### [facility] [address] [place] [address] Dr. Jemma Kaur Calcium [Mass/Vol] 8.0 mg/dL Critically low 8.5-10.1 [facility] Comment on above: Performed By: #### C ZIYAD #### [facility] [address] [place] [address] Dr. Jemma Kaur Chloride [Moles/Vol] 104 mmol/L Normal 98-107 [facility] Comment on above: Performed By: #### C ZIYAD #### [facility] [address] [place] [address] Dr. Jemma Kaur CO2 [Moles/Vol] 29.3 mmol/L Normal 21.0-32.0 [facility] Comment on above: Performed By: #### C ZIYAD #### [facility] [address] [place] [address] Dr. Jemma Kaur Creatinine [Mass/Vol] 0.75 mg/dL Normal 0.55-1.02 [facility] Comment on above: Performed By: #### C GERMANMAN #### [facility] [address] [place] [address] Dr. Jemma Kaur EGFR-AF EMIRATI >60 Normal >=60 [facility] Comment on above: Performed By: #### C BCMAN #### [facility] [address] [place] [address] Dr. Jemma Kaur EGFR-NON AF EMIRATI >60 Normal >=60 [facility] Comment on above: Performed By: #### C ZIYAD #### [facility] [address] [place] [address] Dr. Jemma Kaur Glucose [Mass/Vol] 95 mg/dL Normal 74-106 [facility] Comment on above: Performed By: #### C ZIYAD #### [facility] [address] [address] [address] Jemma Kaur Potassium [Moles/Vol] 4.0 mmol/L Normal 3.5-5.1 [facility] Comment on above: Performed By: #### C ZIYAD #### [facility] [address] [address] [address] Jemma Kaur Sodium [Moles/Vol] 138 mmol/L Normal 136-145 [facility] Comment on above: Performed By: #### C ZIYAD #### [facility] [address] [address] [address] Jemma Kaur Urea nitrogen [Mass/Vol] 6.0 mg/dL Critically low 7.0-18. 0 [facility] Comment on above: Performed By: #### C ZIYAD #### [facility] [address] [address] [address] Jemma Kaur Urea nitrogen/Creatinine [Mass ratio] 8.0 mg/mg Normal [facility] Comment on above: Performed By: #### C ZIYAD #### [facility] [address] [address] [address] Jemma Kaur CBC AUTO DIFFon 12-19-2021 BASO # 0.0 103/ul Normal 0.0-0.1 [facility] Comment on above: Performed By: #### C BC ####[facility] [address] [address]Dr. Jemma Kaur Basophils/100 WBC (Bld) 0.3 % Normal 0.2-2.0 [place] Comment on above: Performed By: #### C BC ####[facility] [address] [address]Dr. Jemma Kaur EO # 0.3 103/ul Normal 0.0-0.7 [facility] Comment on above: Performed By: #### C BC ####[facility] [address] [place], [place] [address]Dr. Jemma Kaur Eosinophils/100 WBC (Bld) 4.3 % Normal 0.9-7.0 [facility] Comment on above: Performed By: #### C BC ####[facility] [address] [place], [place] [address]Dr. Jemma Kaur Erythrocyte distribution wid th (RBC) [Ratio] 12.3 % Normal 11.0-15.0 [facility] Comment on above: Performed By: #### C BC ####[facility] [address] [place], [place] [address]Dr. Jemma Kaur Hematocrit (Bld) [Volume fraction] 33.9 % Critically low 36.0-48.0 [facility] Comment on above: Performed By: #### C BC ####[facility] [address] [place], [place] [address]Dr. Jemma Kaur Hemoglobin (Bld) [Mass/Vol] 11.5 g/dL Critically low 12.0 -16.0 [facility] Comment on above: Performed By: #### C BC ####[facility] [address] [place], [place] [address]Dr. Jemma Kaur IG # 0.02 10e3/ul Normal 0.00-0.03 [facility] Comment on above: Performed By: #### C BC ####[facility] [address] [place], [place] [address]Dr. Jemma Kaur IG % 0.3 % Normal 0.0-0.5 [facility] Comment on above: Performed By: #### C BC ####[facility] [address] [place], [place] [address]Dr. Jemma Kaur LYMPH # 0.6 103/ul Critically low 1.2-3.8 The [facility] Comment on above: Performed By: #### C BC ####[facility] [address] [place], [place] [address]Dr. Jemma Kaur Lymphocytes/100 WBC (Bld) 9.7 % Critically low 20.5-6 0.0 [facility] Comment on above: Performed By: #### C BC ####[facility] [address] [id number]. Jemma Kaur MANUAL DIFF REQ NO Normal [facility] Comment on above: Performed By: #### C BC ####[facility] [address] [id number]. Jemma Kaur MCH (RBC) [Entitic mass] 32.1 pg Normal 26.7-34.0 [facility] Comment on above: Performed By: #### C BC ####[facility] [address] [place], [place] [address]Dr. Jemma Kaur MCHC (RBC) [Mass/Vol] 33.9 g/dL Normal 29.9-35.2 [facility] Comment on above: Performed By: #### C BC ####[facility] [address] [place], [place] [address]Dr. Jemma Kaur MCV (RBC) [Entitic vol] 94.7 fL Normal 81.0-99.0 [place] Comment on above: Performed By: #### C BC ####[facility] [address] [place], [place] [address]Dr. Jemma Kaur MONO # 0.5 103/ul Normal 0.3-0.8 [facility] Comment on above: Performed By: #### C BC ####[facility] [address] [place], [place] [address]Dr. Jemma Kaur Monocytes/100 WBC (Bld) 8.5 % Normal 1.7-12.0 [place] Comment on above: Performed By: #### C BC ####[facility] [address] [place], [place] [address]Dr. Jemma Kaur NEUT # 4.6 103/ul Normal 1.4-6.5 [facility] Comment on above: Performed By: #### C BC ####[facility] [address] [place], [place] [address]Dr. Jemma Kaur Neutrophils/100 WBC (Bld) 76.9 % Critically high 43.0- 75.0 [facility] Comment on above: Performed By: #### C BC ####[facility] [address] [place], [place] [address]Zr. Jemma Kaur Platelet mean volume (Bld) [ Entitic vol] 10.8 fL Normal 9.5-13.5 The [facility] [place] pital Comment on above: Performed By: #### C BC ####[facility] [address] [place], [place] [address]Mr. Jemma Kaur PLT 122 103/ul Critically low 150-450 [facility] Comment on above: Performed By: #### C BC ####[facility] [address] [place], [place] [address]Yq. Jemma Kaur RBC 3.58 106/ul Critically low 4.20-5.40 [facility] Comment on above: Performed By: #### C BC ####[facility] [address] [id number] Kaur WBC 6.0 103/ul Normal 4.0-11.0 [facility] Comment on above: Performed By: #### C BC ####[facility] [address] [id number] Kaur Consultation Noteon 12-20-19 22 Consultation Note [id number]:[address] [facility] LIPASEon 12-19-2021 Lipase [Catalytic activity/Vol] 83.0 U/L Normal 73.0 -393.0 [facility] Comment on above: Performed By: #### L IPA, BMP #### [facility] [address] [place], [place] [address] Dr. Jemma Kaur Operative Reporton 2 Operative Report [id number]:[address] [facility] PROF CHEM 8 (BAS METB)on Anion gap [Moles/Vol] 7.4 mmol/L Normal [facility] Comment on above: Performed By: #### L IPA, BMP #### [facility] [address] [address] [address] Jemma Kaur Calcium [Mass/Vol] 8.1 mg/dL Critically low 8.5-10.1 Th [facility] Comment on above: Performed By: #### L IPA, BMP #### [facility] [address] [address] [address] Jemma Kaur Chloride [Moles/Vol] 109 mmol/L Critically high 98-107 [facility] Comment on above: Performed By: #### L IPA, BMP #### [facility] [address] [address] [address] Jemma Kaur CO2 [Moles/Vol] 29.0 mmol/L Normal 21.0-32.0 [facility] Comment on above: Performed By: #### L IPA, BMP #### [facility] [address] [place] [address] Dr. Jemma Kaur Creatinine [Mass/Vol] 0.66 mg/dL Normal 0.55-1.02 [facility] Comment on above: Performed By: #### L IPA, BMP #### [facility] [address] [place] [address] Dr. Jemma Kaur EGFR-AF EMIRATI >60 Normal >=60 [facility] Comment on above: Performed By: #### L IPA, BMP #### [facility] [address] [place] [address] Dr. Jemma Kaur EGFR-NON AF EMIRATI >60 Normal >=60 [facility] Comment on above: Performed By: #### L IPA, BMP #### [facility] [address] [place] [address] Dr. Jemma Kaur Glucose [Mass/Vol] 133 mg/dL Critically high 74-106 [place] Comment on above: Performed By: #### L IPA, BMP #### [facility] [address] [place] [address] Dr. Jemma Kaur Potassium [Moles/Vol] 3.4 mmol/L Critically low 3.5-5.1 [facility] Comment on above: Performed By: #### L IPA, BMP #### [facility] [address] [place], [place] [address] Dr. Jemma Kaur Sodium [Moles/Vol] 142 mmol/L Normal 136-145 [facility] Comment on above: Performed By: #### L IPA, BMP #### [facility] [address] [address] [address] Jemma Kaur Urea nitrogen [Mass/Vol] 6.0 mg/dL Critically low 7.0-18. 0 [facility] Comment on above: Performed By: #### L IPA, BMP #### [facility] [address] [address] [address] Jemma Kaur Urea nitrogen/Creatinine [Mass ratio] 9.1 mg/mg Normal [facility] Comment on above: Performed By: #### L IPA, BMP #### [facility] [address] [address] [address] Jemma Kaur CBC AUTO DIFFon 12-18-2021 BASO # 0.0 103/ul Normal 0.0-0.1 [facility] Comment on above: Performed By: #### C BC ####[facility] [address] [place] [id number] Kaur Basophils/100 WBC (Bld) 0.3 % Normal 0.2-2.0 [place] Comment on above: Performed By: #### C BC ####[facility] [address] [place] [id number] Kaur EO # 0.1 103/ul Normal 0.0-0.7 [facility] Comment on above: Performed By: #### C BC ####[facility] [address] [place] [id number] Kaur Eosinophils/100 WBC (Bld) 1.4 % Normal 0.9-7.0 [facility] Comment on above: Performed By: #### C BC ####[facility] [address] [place] [id number] Kaur Erythrocyte distribution wid th (RBC) [Ratio] 12.6 % Normal 11.0-15.0 [facility] [place] pital Comment on above: Performed By: #### C BC ####[facility] [address] [place] [address]DrKayla Jemma Kaur Hematocrit (Bld) [Volume fraction] 35.1 % Critically low 36.0-48.0 [facility] [place] [facility] Comment on above: Performed By: #### C BC ####[facility] [address] [place], [place] [address]DrKayla Kaur Hemoglobin (Bld) [Mass/Vol] 11.6 g/dL Critically low 12.0 -16.0 [facility] Comment on above: Performed By: #### C BC ####[facility] [address] [place], [place] [address]DrKayla Kaur IG # 0.02 10e3/ul Normal 0.00-0.03 [facility] Comment on above: Performed By: #### C BC ####[facility] [address] [place], [place] [address]DrKayla Kaur IG % 0.3 % Normal 0.0-0.5 [facility] Comment on above: Performed By: #### C BC ####[facility] [address] [place], [place] [address]DrKayla Kaur LYMPH # 0.6 103/ul Critically low 1.2-3.8 [facility] Comment on above: Performed By: #### C BC ####[facility] [address] [place], [place] [address]DrKayla Kaur Lymphocytes/100 WBC (Bld) 7.7 % Critically low 20.5-6 0.0 [facility] Comment on above: Result Comment: same as 12/17 Performed By: #### C BC ####[facility] [address] [place], [place] [address]DrKayla Kaur MANUAL DIFF REQ NO Normal [facility] Comment on above: Performed By: #### C BC ####[facility] [address] [place], [place] [address]DrKayla Kaur MCH (RBC) [Entitic mass] 31.9 pg Normal 26.7-34.0 [facility] Comment on above: Performed By: #### C BC ####[facility] [address] [place], [place] [address]Dr. Jemma Vincent MCHC (RBC) [Mass/Vol] 33.0 g/dL Normal 29.9-35.2 [facility] Comment on above: Performed By: #### C BC ####[facility] [address] [place], [place] [address]Dr. Jemma Kaur MCV (RBC) [Entitic vol] 96.4 fL Normal 81.0-99.0 [place] Comment on above: Performed By: #### C BC ####[facility] Te[address] [place], [place] [address]DrKayla Kaur MONO # 0.6 103/ul Normal 0.3-0.8 [facility] ospital Comment on above: Performed By: #### C BC ####[facility] [address] [place], [place] [address]Dr. Jemma Kaur Monocytes/100 WBC (Bld) 7.1 % Normal 1.7-12.0 [place] Comment on above: Performed By: #### C BC ####[facility] [address] [place], [place] [address]Dr. Jemma Kaur NEUT # 6.5 103/ul Normal 1.4-6.5 [facility] Comment on above: Performed By: #### C BC ####[facility] [address] [place], [place] [address]Dr. Jemma Kaur Neutrophils/100 WBC (Bld) 83.2 % Critically high 43.0- 75.0 The [facility] Comment on above: Performed By: #### C BC ####[facility] I[address] [place], [place] [address]DrKayla Kaur Platelet mean volume (Bld) [ Entitic vol] 11.4 fL Normal 9.5-13.5 The [facility] pital Comment on above: Performed By: #### C BC ####[facility] [address] [id number]. Yaracarmelo Kaur PLT 106 103/ul Critically low 150-450 [facility] Comment on above: Performed By: #### C BC ####[facility] [address] [address]Dr. Yaracarmelo Kaur RBC 3.64 106/ul Critically low 4.20-5.40 The [facility] Comment on above: Performed By: #### C BC ####[facility] [address] [address]Dr. Jemma Kaur WBC 7.8 103/ul Normal 4.0-11.0 The [facility] Comment on above: Performed By: #### C BC ####[facility] [address] [address]Dr. Jemma Kaur LIPASEon 12-18-2021 Lipase [Catalytic activity/Vol] 60.0 U/L Critically low 73.0-393.0 The [facility] pitnd Comment on above: Performed By: #### L IPA, BMP #### [facility] [address] [address] [address] Jemma Kaur POINT OF CARE GLUCOSEon 11-20 Glucose [Mass/Vol] 103 mg/dL Normal 74-106 [facility] Comment on above: Performed By: #### P OCGLUC ####[facility] [address] [address]DrKayla Kaur PROF CHEM 8 (BAS METB)on Anion gap [Moles/Vol] 8.7 mmol/L Normal [facility] Comment on above: Performed By: #### L IPA, BMP #### [facility] [address] [address] [address] Jemma Kaur Calcium [Mass/Vol] 7.7 mg/dL Critically low 8.5-10.1 Th [facility] Comment on above: Performed By: #### L IPA, BMP #### [facility] [address] [address] [address] Jemma Kaur Chloride [Moles/Vol] 106 mmol/L Normal 98-107 [facility] Comment on above: Performed By: #### L IPA, BMP #### [facility] [address] [address] [address] Jemma Kaur CO2 [Moles/Vol] 28.0 mmol/L Normal 21.0-32.0 [facility] Comment on above: Performed By: #### L IPA, BMP #### [facility] [address] [address] [address] Jemma Kaur Creatinine [Mass/Vol] 0.69 mg/dL Normal 0.55-1.02 [facility] Comment on above: Performed By: #### L IPA, BMP #### [facility] [address] [address] [address] Jemma Kaur EGFR-AF EMIRATI >60 Normal >=60 [facility] Comment on above: Performed By: #### L IPA, BMP #### [facility] [address] [address] [address] Jemma Kaur EGFR-NON AF EMIRATI >60 Normal >=60 [facility] Comment on above: Performed By: #### L IPA, BMP #### [facility] [address] [address] [address] Jemma Kaur Glucose [Mass/Vol] 135 mg/dL Critically high 74-106 [place] Comment on above: Performed By: #### L IPA, BMP #### [facility] [address] [address] [address] Jemma Kaur Potassium [Moles/Vol] 3.7 mmol/L Normal 3.5-5.1 [facility] Comment on above: Performed By: #### L IPA, BMP #### [facility] [address] [address] [address] Jemma Kaur Sodium [Moles/Vol] 139 mmol/L Normal 136-145 [facility] Comment on above: Performed By: #### L IPA, BMP #### [facility] [address] [address] [address] Jemma Kaur Urea nitrogen [Mass/Vol] 13.0 mg/dL Normal 7.0-18.0 [facility] Comment on above: Performed By: #### L IPA BMP #### [facility] [address] [place] [address] Dr. Jemma Kaur Urea nitrogen/Creatinine [Mass ratio] 18.8 mg/mg Normal [facility] Comment on above: Performed By: #### L IPA, BMP #### [facility] [address] [place] [address] Dr. Jemma Kaur CBC W MANUAL DIFFon 12-18-19 22 ATYPICAL LYMPH # Normal [facility] Comment on above: Performed By: #### C ZIYAD #### [facility] [address] [place] [address] Dr. Jemma Kaur ATYPICAL LYMPH % Normal [facility] Comment on above: Performed By: #### C ZIYAD #### [facility] [address] [place] [address] Dr. Jemma Kaur BAND # 0.3 103/ul Normal 0.0-0.3 [facility] Comment on above: Performed By: #### C ZIYAD #### [facility] [address] [place] [address] Dr. Jemma Kaur BAND % 2 % Normal 0-5 [facility] ostal Comment on above: Performed By: #### C ZIYAD #### [facility] [address] [place] [address] Dr. Jemma Kaur BASOM # 0.00 103/ul Normal 0.00-0.10 [facility] Comment on above: Performed By: #### C ZIYAD #### [facility] [address] [place] [address] Dr. Jemma Kaur BASOM % 0.0 % Critically low 0.2-2.0 [facility] Comment on above: Performed By: #### C ZIYAD #### [facility] [address] [place] [address] Dr. Jemma Kaur BLAST # Normal [facility] Comment on above: Performed By: #### C ZIYAD #### [facility] [address] [place] [address] Dr. Jemma Kaur BLAST % Normal [facility] Comment on above: Performed By: #### C ZIYAD #### [facility] [address] [address] [address] Jemma Kaur CORRECTED WBC Normal 4.0-11.[address] [facility] Comment on above: Performed By: #### C ZIYAD #### [facility] [address] [address] [address] Jemma Kaur EOS # 0.00 103/ul Normal 0.00-0.70 [facility] Comment on above: Performed By: #### C ZIYAD #### [facility] [address] [address] [address] Jemma Kaur EOS% 0.0 % Critically low 0.9-7.0 [facility] Comment on above: Performed By: #### C ZIYAD #### [facility] [address] [place] [address] Dr. Jemma Kaur HCT 37.0 % Normal 36.0-48.0 [facility] ostal Comment on above: Performed By: #### C ZIYAD #### [facility] [address] [place] [address] Dr. Jemma Kaur HGB 12.3 g/dl Normal 12.0-16.0 The [facility] ostal Comment on above: Performed By: #### C ZIYAD #### [facility] [address] [place] [address] Dr. Jemma Kaur LYMPHM # 0.40 103/ul Critically low 1.20-3.80 The [facility] Comment on above: Performed By: #### C ZIYAD #### [facility] [address] [place] [address] Dr. Jemma Kaur LYMPHM% 3.0 % Critically low 20.5-60.0 [facility] Comment on above: Performed By: #### C ZIYAD #### [facility] [address] [place] [address] Dr. Jemma Kaur MCH 31.7 pg Normal 26.7-34.0 [facility] Comment on above: Performed By: #### C ZIYAD #### [facility] [address] [place] [address] Dr. Jemma Kaur MCHC 33.2 g/dl Normal 29.9-35.2 [facility] Comment on above: Performed By: #### Serena LACKEY #### [facility] [address] [place] [address] Dr. Jemma Kaur MCV 95.4 fL Normal 81.0-99.0 [facility] Comment on above: Performed By: #### C ZIYAD #### [facility] [address] [place] [address] Dr. Jemma Kaur METAMYELOCYTE # Normal The [facility] Comment on above: Performed By: #### Serena LACKEY #### [facility] [address] [place] [address] Dr. Jemma Kaur METAMYELOCYTE % Normal [facility] Comment on above: Performed By: #### Serena LACKEY #### [facility] [address] [place] [address] Dr. Jemma Kaur MONOM# 0.53 103/ul Normal 0.30-0.80 [facility] Comment on above: Performed By: #### Serena LACKEY #### [facility] [address] [place] [address] Dr. Jemma Kaur MONOM% 4.0 % Normal 1.7-12.0 [facility] ostal Comment on above: Performed By: #### Serena LACKEY #### [facility] [address] [place] [address] Dr. Jemma Kaur MPV 11.2 fL Normal 9.5-13.5 [facility] Comment on above: Performed By: #### Serena LACKEY #### [facility] [address] [place] [address] Dr. Jemma Kaur MYELOCYTE # Normal [facility] Comment on above: Performed By: #### Serena LACKEY #### [facility] [address] [place] [address] Dr. Jemma Kaur MYELOCYTE % Normal [facility] Comment on above: Performed By: #### C GERMANMAN #### [facility] [address] [address] [address] Jemma Kaur NRBC Normal [facility] Comment on above: Performed By: #### Serena LACKEY #### [facility] [address] [address] [address] Jemma Kaur PLT 106 103/ul Critically low 150-450 [facility] Comment on above: Performed By: #### Serena LACKEY #### [facility] [address] [address] [address] Jemma Kaur RBC 3.88 106/ul Critically low 4.20-5.40 The [facility] Comment on above: Performed By: #### Serena LACKEY #### [facility] [address] [place] [address] Dr. Jemma Kaur RDW 12.6 % Normal 11.0-15.0 The [facility] Comment on above: Performed By: #### Serena LACKEY #### [facility] [address] [place] [address] Dr. Jemma Kaur SEG # 12.01 103/ul Critically high 1.40-6.50 [facility] Comment on above: Performed By: #### Serena LACKEY #### [facility] [address] [place] [address] Dr. Jemma Kaur SEG % 91.0 % Critically high 43.0-75.0 [facility] Comment on above: Performed By: #### Serena LACKEY #### [facility] [address] [address] [address] Jemma Kaur WBC 13.2 103/ul Critically high 4.0-11.0 [facility] Comment on above: Performed By: #### Serena LACKEY #### [facility] [address] [place] [address] Dr. Jemma Kaur LIPASEon 12-17-2021 Lipase [Catalytic activity/Vol] 43.0 U/L Critically low 73.0-393.0 [facility] Comment on above: Performed By: #### B MP, LIPA ####[facility] [address] [place] [address]Dr. Jemma Kaur POINT OF CARE GLUCOSEon 11-20 Glucose [Mass/Vol] 126 mg/dL Critically high 74-106 [place] Comment on above: Performed By: #### L IPA, BMP #### [facility] [address] [address] [address] Jemma Kaur Glucose [Mass/Vol] 158 mg/dL Critically high 74-106 [place] Comment on above: Performed By: #### P OCGLUC #### [facility] [address] [address] [address] Jemma Kaur PROF CHEM 8 (BAS METB)on Anion gap [Moles/Vol] 12.0 mmol/L Normal [facility] Comment on above: Performed By: #### B MP, LIPA ####[facility] [address] [address]Dr. Jemma Kaur Calcium [Mass/Vol] 7.5 mg/dL Critically low 8.5-10.1 [facility] Comment on above: Performed By: #### B MP, LIPA ####[facility] [address] [address]Dr. Jemma Kaur Chloride [Moles/Vol] 105 mmol/L Normal 98-107 [facility] Comment on above: Performed By: #### B MP, LIPA ####[facility] [address] [address]Dr. Jemma Kaur CO2 [Moles/Vol] 26.8 mmol/L Normal 21.0-32.0 [facility] Comment on above: Performed By: #### B MP, LIPA ####[facility] [address] [address]Dr. Jemma Kaur Creatinine [Mass/Vol] 0.84 mg/dL Normal 0.55-1.02 [facility] Comment on above: Performed By: #### B MP, LIPA ####[facility] [address] [address]Dr. Jemma Kaur EGFR-AF EMIRATI >60 Normal >=60 [facility] Comment on above: Performed By: #### B MP, LIPA ####[facility] [address] [address]Dr. Jmema Kaur EGFR-NON AF EMIRATI >60 Normal >=60 [facility] Comment on above: Performed By: #### B MP, LIPA ####[facility] [address] [id number]. Jemma Kaur Glucose [Mass/Vol] 210 mg/dL Critically high 74-106 [facility] Comment on above: Performed By: #### B VITOR, LIPA ####[facility] [address] [address]Dr. Jemma Kaur Potassium [Moles/Vol] 3.8 mmol/L Normal 3.5-5.1 [facility] Comment on above: Performed By: #### B VITOR, LIPA ####[facility] [address] [address]Dr. Jemma Kaur Sodium [Moles/Vol] 140 mmol/L Normal 136-145 [facility] Comment on above: Performed By: #### B VITOR, LIPA ####[facility] [address] [address]DrKayla Kaur Urea nitrogen [Mass/Vol] 14.0 mg/dL Normal 7.0-18.0 [facility] Comment on above: Performed By: #### B VITOR, LIPA ####[facility] [address] [address]Dr. Jemma Kaur Urea nitrogen/Creatinine [Mass ratio] 16.7 mg/mg Normal [facility] Comment on above: Performed By: #### B VITOR, LIPA ####[facility] [address] [address]DrKayla Kaur AMYLASEon 12-16-2021 Amylase [Catalytic activity/Vol] 95 U/L Normal 25- 115 [facility] Comment on above: Performed By: #### C MREP #### [facility] [address] [address] [address] Jemma Kaur CBC AUTO DIFFon 12-16-2021 BASO # 0.0 103/ul Normal 0.0-0.1 [facility] Comment on above: Performed By: #### L IPA, BMP #### [facility] [address] [place] [address] Dr. Jemma Kaur Basophils/100 WBC (Bld) 0.2 % Normal 0.2-2.0 [place] Comment on above: Performed By: #### L IPA, BMP #### [facility] [address] [place] [address] Dr. Jemma Kaur EO # 0.0 103/ul Normal 0.0-0.7 [facility] Comment on above: Performed By: #### L IPA, BMP #### [facility] [address] [place] [address] Dr. Jemma Kaur Eosinophils/100 WBC (Bld) 0.0 % Critically low 0.9-7. 0 [facility] Comment on above: Performed By: #### L IPA, BMP #### [facility] [address] [place] [address] Dr. Jemma Kaur Erythrocyte distribution wid th (RBC) [Ratio] 12.2 % Normal 11.0-15.0 [facility] Comment on above: Performed By: #### L IPA, BMP #### [facility] [address] [place] [address] Dr. Jemma Kaur Hematocrit (Bld) [Volume fraction] 41.8 % Normal 3 6.0-48.0 [facility] Comment on above: Performed By: #### L IPA, BMP #### [facility] [address] [place] [address] Dr. Jemma Kaur Hemoglobin (Bld) [Mass/Vol] 14.1 g/dL Normal 12.0-16. 0 [facility] Comment on above: Performed By: #### L IPA, BMP #### [facility] [address] [place] [address] Dr. Jemma Kaur IG # 0.03 10e3/ul Normal 0.00-0.03 [facility] Comment on above: Performed By: #### L IPA, BMP #### [facility] [address] [address] [address] Jemma Kaur IG % 0.3 % Normal 0.0-0.5 [facility] ospital Comment on above: Performed By: #### L IPA, BMP #### [facility] [address] [address] [address] Jemma Kaur LYMPH # 0.3 103/ul Critically low 1.2-3.8 [facility] Comment on above: Performed By: #### L IPA, BMP #### [facility] [address] [address] [address] Jemma Kaur Lymphocytes/100 WBC (Bld) 3.5 % Critically low 20.5-6 0.0 [facility] Comment on above: Performed By: #### L IPA, BMP #### [facility] [address] [address] [address] Jemma Kaur MANUAL DIFF REQ NO Normal [facility] Comment on above: Performed By: #### L IPA, BMP #### [facility] [address] [address] [address] Jemma Kaur MCH (RBC) [Entitic mass] 32.0 pg Normal 26.7-34.0 [facility] Comment on above: Performed By: #### L IPA, BMP #### [facility] [address] [address] [address] Jemma Kaur MCHC (RBC) [Mass/Vol] 33.7 g/dL Normal 29.9-35.2 [facility] Comment on above: Performed By: #### L IPA, BMP #### [facility] [address] [address] [address] Jemma Kaur MCV (RBC) [Entitic vol] 94.8 fL Normal 81.0-99.0 [place] Comment on above: Performed By: #### L IPA, BMP #### [facility] [address] [address] [address] Jemma Kaur MONO # 0.4 103/ul Normal 0.3-0.8 [facility] Comment on above: Performed By: #### L IPA, BMP #### [facility] [address] [place] [address] Dr. Jemma Kaur Monocytes/100 WBC (Bld) 4.6 % Normal 1.7-12.0 [place] Comment on above: Performed By: #### L IPA, BMP #### [facility] [address] [place] [address] Dr. Jemma Kaur NEUT # 8.5 103/ul Critically high 1.4-6.5 [facility] Comment on above: Performed By: #### L IPA, BMP #### [facility] [address] [place] [address] Dr. Jemma Kaur Neutrophils/100 WBC (Bld) 91.4 % Critically high 43.0- 75.0 [facility] Comment on above: Performed By: #### L IPA, BMP #### [facility] [address] [place] [address] Dr. Jemma Kaur Platelet mean volume (Bld) [ Entitic vol] 10.9 fL Normal 9.5-13.5 [facility] pital Comment on above: Performed By: #### L IPA, BMP #### [facility] [address] [place] [address] Dr. Jemma Kaur PLT 125 103/ul Critically low 150-450 [facility] Comment on above: Performed By: #### L IPA, BMP #### [facility] [address] [place] [address] Dr. Jemma Kaur RBC 4.41 106/ul Normal 4.20-5.40 [facility] Comment on above: Performed By: #### L IPA, BMP #### [facility] [address] [place] [address] Dr. Jemma Kaur WBC 9.3 103/ul Normal 4.0-11.0 [facility] Comment on above: Performed By: #### L IPA, BMP #### [facility] [address] [place] [address] Dr. Jemma Kaur BASO # 0.0 103/ul Normal 0.0-0.1 [facility] ostal Comment on above: Performed By: #### C BC #### [facility] [address] [place] [address] Dr. Jemma Kaur Basophils/100 WBC (Bld) 0.4 % Normal 0.2-2.0 [place] Comment on above: Performed By: #### C BC #### [facility] [address] [place] [address] Dr. Jemma Kaur EO # 0.0 103/ul Normal 0.0-0.7 [facility] Comment on above: Performed By: #### C BC #### [facility] [address] [place] [address] Dr. Jemma Kaur Eosinophils/100 WBC (Bld) 0.1 % Critically low 0.9-7. 0 [facility] Comment on above: Performed By: #### C BC #### [facility] [address] [place] [address] Dr. Jemma Kaur Erythrocyte distribution wid th (RBC) [Ratio] 12.3 % Normal 11.0-15.0 [facility] Comment on above: Performed By: #### C BC #### [facility] [address] [place] [address] Dr. Jemma Kaur Hematocrit (Bld) [Volume fraction] 43.7 % Normal 3 6.0-48.0 [facility] Comment on above: Performed By: #### C BC #### [facility] [address] [place] [address] Dr. Jemma Kaur Hemoglobin (Bld) [Mass/Vol] 14.4 g/dL Normal 12.0-16. 0 [facility] Comment on above: Performed By: #### C BC #### [facility] [facility] [address] [place] [address] Dr. Jemma Kaur IG # 0.04 10e3/ul Critically high 0.00-0.03 [facility] Comment on above: Performed By: #### C BC #### [facility] [address] [place] [address] Dr. Jemma Kaur IG % 0.4 % Normal 0.0-0.5 [facility] Comment on above: Performed By: #### C BC #### [facility] [address] [place] [address] Dr. Jemma Kaur LYMPH # 0.5 103/ul Critically low 1.2-3.8 [facility] Comment on above: Performed By: #### C BC #### [facility] [address] [place] [address] Dr. Jemma Kaur Lymphocytes/100 WBC (Bld) 4.5 % Critically low 20.5-6 0.0 [facility] Comment on above: Performed By: #### C BC #### [facility] [address] [place] [address] Dr. Jemma Kaur MANUAL DIFF REQ NO Normal [facility] Comment on above: Performed By: #### C BC #### [facility] [address] [place] [address] Dr. Jemma Kaur MCH (RBC) [Entitic mass] 31.5 pg Normal 26.7-34.0 [facility] Comment on above: Performed By: #### C BC #### [facility] [address] [place] [address] Dr. Jemma Kaur MCHC (RBC) [Mass/Vol] 33.0 g/dL Normal 29.9-35.2 [facility] Comment on above: Performed By: #### C BC #### [facility] [address] [place] [address] Dr. Jemma Kaur MCV (RBC) [Entitic vol] 95.6 fL Normal 81.0-99.0 [place] Comment on above: Performed By: #### C BC #### [facility] [address] [place] [address] Dr. Jemma Kaur MONO # 0.6 103/ul Normal 0.3-0.8 [facility] Comment on above: Performed By: #### C BC #### [facility] [address] [place] [address] Dr. Jemma Kaur Monocytes/100 WBC (Bld) 5.9 % Normal 1.7-12.0 [place] Comment on above: Performed By: #### C BC #### [facility] [address] [place] [address] Dr. Jemma Kaur NEUT # 9.4 103/ul Critically high 1.4-6.5 [facility] Comment on above: Performed By: #### C BC #### [facility] [address] [place] [address] Dr. Jemma Kaur Neutrophils/100 WBC (Bld) 88.7 % Critically high 43.0- 75.0 [facility] Comment on above: Performed By: #### C BC #### [facility] [address] [place] [address] Dr. Jemma Kaur Platelet mean volume (Bld) [ Entitic vol] 10.5 fL Normal 9.5-13.5 [facility] Comment on above: Performed By: #### C BC #### [facility] [address] [place] [address] Dr. Jemma Kaur PLT 143 103/ul Critically low 150-450 [facility] Comment on above: Performed By: #### C BC #### [facility] [address] [place] [address] Dr. Jemma Kaur RBC 4.57 106/ul Normal 4.20-5.40 [facility] Comment on above: Performed By: #### C BC #### [facility] [address] [place], [place] [id number] Dr. Jemma Kaur WBC 10.6 103/ul Normal 4.0-11.0 [facility] Comment on above: Performed By: #### C BC #### [facility] [address] [place] [address] ABD/PELVIS WO CONon 12-16 CT ABD/PELVIS WO CON EXAMINATION: CT ABD /PELVIS WO CON HISTORY: GENERALIZED ABDOMINAL PAIN , vomiting COMPARISON: No relevant comparison available. TECHNIQUE: Axial, Coronal, and Sagittal images were created without IV contrast. Dose reduction techniques were achieved by using automated exposure control and/or adjustment of mA and/or kV according to patient size and/or use of iterative reconstruction technique. FINDINGS: LUNG BASES: No visible pulmonary or pleural disease. LIVER: A few hypodensities scattered within the liver favoring cysts or hemangiomas. No enlargement, atrophy, suspicious density, or significant focal lesion. BILIARY: Cholecystectomy. PANCREAS: No lesion, fluid collection, or abnormal duct dilatation. SPLEEN: Rim calcified splenic artery aneurysm, 1.5 cm. No spleen enlargement or focal lesion. ADRENALS: No mass or enlargement. KIDNEYS: No mass, obstruction, or calcification. BOWEL/MESENTERY: Fluid-filled small bowel is distended up to 3.0 cm. Abrupt flexion point within the middistal ileum with collapsed small bowel distal to this point. Slight circumferential wall thickening of the ileum just proximal to the point of obstruction, 7 mm, with asymmetric wall thickening in this segment up to 10 mm. Mild diverticulosis of the sigmoid colon without acute inflammatory changes. No free air or free fluid. AORTA/VASCULAR: No aneurysm or dissection. RETROPERITONEUM: No mass or adenopathy. LYMPH NODES: No adenopathy. URINARY BLADDER: No visible focal wall thickening, lesion, or calculus. PELVIC ORGANS: Discectomy. ABDOMINAL WALL: No mass or hernia. BONES: No bony lesion or fracture. Multilevel mild-moderate degenerative disc disease of lumbar spine. OTHER: Negative. IMPRESSION: 1. Distal small bowel obstruction due to folding over an adhesion within the right pelvis involving the mid-distal ileum. Slightly inflamed appearance of a short section of ileum immediately prior to the flexion point. No free air or free fluid. 2. Mild sigmoid diverticulosis. 3. Rim calcified splenic artery aneurysm, 1.5 cm. Findings discussed with Dr. Kevyn Anne in person. Electronically authenticated by: ROHAN HERRON Date: 2021-12-16 02:15 Normal [facility] CULTURE URINEon 12-16-2021 CULTURE URINE Culture Observations : LIGHT GROWTH OF MIXED GENITAL PEDRO. NO POTENTIAL PATHOGENS SEEN. Normal [facility] Comment on above: Performed By: #### C MREP #### [facility] [address] [place] [address] Dr. Jemma Kaur Covid-19 PCR (CVDTB)on 11-19 SARS-CoV-2 (COVID-19) RNA LAURO+probe Ql (Unsp spec) Not detected Normal NOT DETECTED [facility] Comment on above: Result Comment: When diagnostic testing is negative, the possibility of a false negative should be considered in the context of a patient's recent exposures and the presence of clinical signs and symptoms consistent with SARS-CoV-2. This test is not yet approved or cleared by the [place] FDA. When there are no FDA-approved or cleared tests available, and other criteria are met, FDA can make tests available under an emergency access mechanism called an Emergency Use Authorization (EUA). The EUA for this test is supported by the [place] [employer] and Human Service's declaration that circumstances exist to justify the emergency use of in vitro diagnostics for the detection and/or diagnosis of the virus that causes COVID-19. This EUA will remain in effect for the duration of the COVID-19 declaration justifying emergency of IVDs, unless it is terminated or revoked by the FDA (after which the test may no longer be used). Performed By: #### C VDTB #### [facility] [address] [place] [address] Dr. Jemma Kaur ER URINE PROFILEon 2 Bilirubin Ql (U) Negative Normal NEGATIVE [facility] Comment on above: Performed By: #### C ZIYAD #### [facility] [address] [place] [address] Dr. Jemma Kaur Clarity (U) CLEAR Normal CLEAR [facility] Comment on above: Performed By: #### C ZIYAD #### [facility] [address] [place] [address] Dr. Jemma aKur Color (U) LT. YELLOW Normal YELLOW [facility] Comment on above: Performed By: #### C ZIYAD #### [facility] [address] [place] [address] Dr. Jemma Kaur ERUAHD A micrscopic examina tion will be performed if indicated. Normal [facility] Comment on above: Performed By: #### C ZIYAD #### [facility] [address] [place] [address] Dr. Jemma Kaur Glucose Ql (U) Negative Normal NEGATIVE [facility] Comment on above: Performed By: #### C ZIYAD #### [facility] [address] [place] [address] Dr. Jemma Kaur Hemoglobin Ql (U) TRACE-LYSED Abnormal NEGATIVE [facility] Comment on above: Performed By: #### C ZIYAD #### [facility] [address] [place] [address] Dr. Jemma Kaur Ketones Ql (U) 15 mg/dl Abnormal NEGATIVE [facility] Comment on above: Performed By: #### C ZIYAD #### [facility] [address] [place] [address] Dr. Jemma Kaur LEUKOCYTES MODERATE Abnormal NEGATIVE [facility] Comment on above: Performed By: #### C ZIYAD #### [facility] [address] [place] [address] Dr. Jemma Kaur Nitrite Ql (U) Negative Normal NEGATIVE [facility] Comment on above: Performed By: #### Serena LACKEY #### [facility] [address] [place] [address] Dr. Jemma Kaur pH (U) 7.0 [pH] Normal 5-9 [facility] Comment on above: Performed By: #### Serena LACKEY #### [facility] [address] [place] [address] Dr. Jemma Kaur SPEC GRAVITY 1.015 Normal 1.005-<=1.025 [facility] Comment on above: Performed By: #### Sreena LACKEY #### [facility] [address] [place] [address] Dr. Jemma Kaur UA PROTEIN Negative Normal NEGATIVE/ TRACE [facility] Comment on above: Performed By: #### Serena LACKEY #### [facility] [address] [place] [address] Dr. Jemma Kaur UR MICRO IND INDICATED Normal [facility] Comment on above: Performed By: #### C ZIYAD #### [facility] [address] [place] [address] Dr. Jemma Kaur Urobilinogen Qn (U) 0.2 {Rober'U}/dL Normal 0.2 - 1. 0 [facility] Comment on above: Performed By: #### C BCMAN #### [facility] [address] [address] [address] Jemma Kaur LIPASEon 12-16-2021 Lipase [Catalytic activity/Vol] 518.0 U/L Critically high 73.0-393.0 [facility] Comment on above: Performed By: #### C MP, HAYLEE LIPA #### [facility] [address] [address] [address] Jemma Kaur PROF 14(COMP METB)on 022 Albumin [Mass/Vol] 3.7 g/dL Normal 3.4-5.0 [facility] Comment on above: Performed By: #### C MP ####[facility] [address] [address]DrKayla Kaur Albumin/Globulin [Mass ratio] 1.1 {ratio} Normal [facility] Comment on above: Performed By: #### C MP ####[facility] [address] [address]Dr. Jemma Kaur ALP [Catalytic activity/Vol] 55 U/L Normal 46-116 [facility] Comment on above: Performed By: #### C MP ####[facility] [address] [address]DrKayla Kaur ALT [Catalytic activity/Vol] 28 U/L Normal 14-59 [facility] Comment on above: Performed By: #### C MP ####[facility] [address] [address]DrKayla Kaur Anion gap [Moles/Vol] 9.7 mmol/L Normal [facility] Comment on above: Performed By: #### C MP ####[facility] [address] [address]DrKayla Kaur AST [Catalytic activity/Vol] 23 U/L Normal 15-37 [facility] Comment on above: Performed By: #### C MP ####[facility] [address] [address]DrKayla Kaur Bilirubin [Mass/Vol] 1.2 mg/dL Critically high 0.2-1.0 [facility] Comment on above: Performed By: #### C MP ####[facility] [address] [address]Dr. Jemma Kaur Calcium [Mass/Vol] 8.7 mg/dL Normal 8.5-10.1 [facility] Comment on above: Performed By: #### C MP ####[facility] [address] [address]Dr. Jemma Kaur Chloride [Moles/Vol] 101 mmol/L Normal 98-107 [facility] Comment on above: Performed By: #### C MP ####[facility] [address] [place], [place] [address]Dr. Jemma Kaur CO2 [Moles/Vol] 32.4 mmol/L Critically high 21.0-32.0 [facility] Comment on above: Performed By: #### C MP ####[facility] [address] [place], [place] [address]Dr. Jemma Kaur Creatinine [Mass/Vol] 0.81 mg/dL Normal 0.55-1.02 [facility] Comment on above: Performed By: #### C MP ####[facility] [address] [place], [place] [address]Dr. Jemma Vincent EGFR-AF EMIRATI >60 Normal >=60 [facility] Comment on above: Performed By: #### C MP ####[facility] [address] [place], [place] [address]Dr. Jemma Kaur EGFR-NON AF EMIRATI >60 Normal >=60 [facility] Comment on above: Performed By: #### C MP ####[facility] [address] [address]Dr. Jemma Kaur Globulin (S) [Mass/Vol] 3.4 g/dL Normal [place] Comment on above: Performed By: #### C MP ####[facility] [address] [place], [place] [address]Dr. Jemma Kaur Glucose [Mass/Vol] 137 mg/dL Critically high 74-106 T [facility] Comment on above: Performed By: #### C MP ####[facility] [address] [address]Dr. Jemma Kaur Potassium [Moles/Vol] 4.1 mmol/L Normal 3.5-5.1 [facility] Comment on above: Performed By: #### C MP ####[facility] [address] [address]Dr. Jemma Kaur Protein [Mass/Vol] 7.1 g/dL Normal 6.4-8.2 [facility] Comment on above: Performed By: #### C MP ####[facility] [address] [address]Dr. Jemma Kaur Sodium [Moles/Vol] 139 mmol/L Normal 136-145 [facility] Comment on above: Performed By: #### C MP ####[facility] [address] [address]DrKayla Kaur Urea nitrogen [Mass/Vol] 14.0 mg/dL Normal 7.0-18.0 [facility] Comment on above: Performed By: #### C MP ####[facility] [address] [address]DrKayla Kaur Urea nitrogen/Creatinine [Mass ratio] 17.3 mg/mg Normal [facility] Comment on above: Performed By: #### C MP ####[facility] [address] [address]DrKayla Kaur Albumin [Mass/Vol] 3.9 g/dL Normal 3.4-5.0 [facility] Comment on above: Performed By: #### C MREP #### [facility] [address] [address] [address] Jemma Kaur Albumin/Globulin [Mass ratio] 1.1 {ratio} Normal [facility] Comment on above: Performed By: #### C MREP #### [facility] [address] [address] [address] Jemma Kaur ALP [Catalytic activity/Vol] 59 U/L Normal 46-116 [facility] Comment on above: Performed By: #### C MREP #### [facility] [address] [address] [address] Jemma Kaur ALT [Catalytic activity/Vol] 27 U/L Normal 14-59 [facility] Comment on above: Performed By: #### C MREP #### [facility] [address] [address] [address] Jemma Kaur Anion gap [Moles/Vol] 10.1 mmol/L Normal Th [facility] Comment on above: Performed By: #### C MREP #### [facility] [address] [address] [address] Jemma Kaur AST [Catalytic activity/Vol] 22 U/L Normal 15-37 [facility] Comment on above: Performed By: #### C MREP #### [facility] [address] [address] [address] Jemma Kaur Bilirubin [Mass/Vol] 1.1 mg/dL Critically high 0.2-1.0 [facility] Comment on above: Performed By: #### C MREP #### [facility] [address] [address] [address] Jemma Kaur Calcium [Mass/Vol] 8.8 mg/dL Normal 8.5-10.1 [facility] Comment on above: Performed By: #### C MREP #### [facility] [address] [address] [address] Jemma Kaur Chloride [Moles/Vol] 101 mmol/L Normal 98-107 [facility] Comment on above: Performed By: #### C MREP #### [facility] [address] [address] [address] Jemma Kaur CO2 [Moles/Vol] 31.0 mmol/L Normal 21.0-32.0 [facility] Comment on above: Performed By: #### C MREP #### [facility] [address] [address] [address] Jemma Kaur Creatinine [Mass/Vol] 0.94 mg/dL Normal 0.55-1.02 [facility] Comment on above: Performed By: #### C MREP #### [facility] [address] [address] [address] Jemma Kaur EGFR-AF EMIRATI >60 Normal >=60 [facility] Comment on above: Performed By: #### C MREP #### [facility] [address] [address] [address] Jemma Kaur EGFR-NON AF EMIRATI 57 mL/min/1.73m2 Critically low >=60 [facility] Comment on above: Performed By: #### C MREP #### [facility] [address] [address] [address] Jemma Kaur Globulin (S) [Mass/Vol] 3.4 g/dL Normal [place] Comment on above: Performed By: #### C MREP #### [facility] [address] [address] [address] Jemma Kaur Glucose [Mass/Vol] 170 mg/dL Critically high 74-106 [place] Comment on above: Performed By: #### C MREP #### [facility] [address] [address] [address] Jemma Kaur Potassium [Moles/Vol] 4.1 mmol/L Normal 3.5-5.1 [facility] Comment on above: Performed By: #### C MREP #### [facility] [address] [address] [address] Jemma Kaur Protein [Mass/Vol] 7.3 g/dL Normal 6.4-8.2 [facility] Comment on above: Performed By: #### C MREP #### [facility] [address] [address] [address] Jemma Kaur Sodium [Moles/Vol] 138 mmol/L Normal 136-145 [facility] Comment on above: Performed By: #### C MREP #### [facility] [address] [address] [address] Jemma Kaur Urea nitrogen [Mass/Vol] 16.0 mg/dL Normal 7.0-18.0 [facility] Comment on above: Performed By: #### C MREP #### [facility] [address] [place] [address] Dr. Jemma Kaur Urea nitrogen/Creatinine [Mass ratio] 17.0 mg/mg Normal [facility] Comment on above: Performed By: #### C MREP #### [facility] [address] [place] [address] Dr. Jemma Kaur URINE MICROSCOPIC ONLYon BACTERIA SMALL Abnormal NONE SEEN [facility] Comment on above: Performed By: #### C BCMAN #### [facility] [address] [place] [address] Dr. Jemma Kaur Bacteria identified Cx Nom (U) INDICATED Normal [facility] Comment on above: Performed By: #### C BCMAN #### [facility] [address] [place] [address] Dr. Jemma Kaur CAST NONE SEEN Normal NONE SEEN [facility] Comment on above: Performed By: #### C BCMAN #### [facility] [address] [place] [address] Dr. Jemma Kaur Crystals LM Nom (Urine sed) NONE SEEN Normal NONE SEE N [facility] Comment on above: Performed By: #### C ZIYAD #### [facility] [address] [place] [address] Dr. Jemma Kaur Epithelial cells LM Ql (Urine sed) FEW Abnormal N ONE SEEN /RARE [facility] Comment on above: Performed By: #### C BCMAN #### [facility] [address] [place] [address] Dr. Jemma Kaur MUCOUS NONE SEEN Normal NONE SEEN [facility] Comment on above: Performed By: #### C GERMANMAN #### [facility] [address] [place] [address] Dr. Jemma Kaur RBC 2-5 Abnormal 0-2 [facility] Comment on above: Performed By: #### C ZIYAD #### [facility] [address] [place] [address] Dr. Jemma Kaur WBC 10-20 Abnormal NONE SEEN [facility] Comment on above: Performed By: #### C [facility] #### [facility] [address] [address] [address] Jemma Kaur XR ABD FLAT UP_PA Gabriela 12-16 XR ABD FLAT UP_PA CH EXAMINATION: XR ABD FLAT UP_PA CH HISTORY: Partial obstruction of small bowel COMPARISON: XR chest 12/16/2021, XR abdomen with PA chest 12/16/2021 FINDINGS: LUNGS: Hyperexpanded lungs without appreciable infiltrates. MEDIASTINUM: No abnormal widening. BOWEL GAS PATTERN: Multiple air-filled and abnormally dilated loops of small bowel within the abdomen pelvis distended up to 4.3 cm; increased since prior study. Small amount of air and stool within the colon. Nasogastric tube within the stomach. FREE AIR: None. CALCIFICATIONS: None significant. BONES: No fracture or visible bone lesion. OTHER: Negative. IMPRESSION: 1. Progression of distal small bowel obstruction. Findings discussed with Dr. Araujo via telephone prior to dictation. Electronically authenticated by: ROHAN HERRON Date: 2021-12-16 18:30 Normal [facility] l XR ABD FLAT UP_PA CH EXAMINATION: XR ABD FLAT UP_PA CH HISTORY: CONSTIPATION, UNSPECIFIED ; bilateral lower quadrant abdominal pain, nausea COMPARISON: No relevant comparison available. FINDINGS: LUNGS: Hyperexpanded lungs without acute infiltrates, pleural effusion, or pneumothorax. MEDIASTINUM: No abnormal widening. BOWEL GAS PATTERN: Air-filled mildly distended loops of small bowel with multiple fluid levels within the bowel. FREE AIR: None. CALCIFICATIONS: None significant. BONES: No fracture or visible bone lesion. OTHER: Right upper quadrant surgical clips from cholecystectomy. IMPRESSION: 1. No acute cardiopulmonary process. Hyperexpanded lungs. 2. Air and fluid-filled, mildly distended small bowel; distal small bowel obstruction / partial obstruction versus ileus. 3. Moderate stool burden. Electronically authenticated by: ROHAN HERRON Date: 2021-12-16 01:12 [facility] Von 12-16-2021 XR CHEST 1 V EXAMINATION: XR CHES T 1 V HISTORY: CONSTIPATION, UNSPECIFIED , NG tube placement COMPARISON: XR abdomen with PA chest 12/16/2021 12:43 AM FINDINGS: LUNGS: Hyperexpanded lungs without acute infiltrates. VASCULATURE: No increased pulmonary vasculature. PLEURA: No pneumothorax, effusion, or pleural thickening. CARDIAC: No cardiomegaly or cardiac silhouette abnormality. MEDIASTINUM: No visible mass or adenopathy. BONES: No fracture or visible bone lesion. OTHER: Air-filled distended loops of small bowel within the upper abdomen. Nasogastric tube extends into body of the stomach. IMPRESSION: 1. Nasogastric tube placement with tip in body of stomach and side-port below gastroesophageal junction. 2. Air-filled mildly distended loops of small bowel within the upper abdomen consistent with history of distal small bowel obstruction. Electronically authenticated by: ROHAN HERRON Date: 2021-12-16 03:12 Normal [facility] CBC AUTO DIFFon 10-26-2021 BASO # 0.1 103/ul Normal 0.0-0.1 [facility] Comment on above: Performed By: #### C MREP #### [facility] [address] [address] [address] Jemma Kaur Basophils/100 WBC (Bld) 1.2 % Normal 0.2-2.0 [place] Comment on above: Performed By: #### C MREP #### [facility] [address] [address] [address] Jemma Kaur EO # 0.1 103/ul Normal 0.0-0.7 [facility] Comment on above: Performed By: #### C MREP #### [facility] [address] [address] [address] Jemma Kaur Eosinophils/100 WBC (Bld) 2.2 % Normal 0.9-7.0 [facility] Comment on above: Performed By: #### C MREP #### [facility] [address] [place], [place] [address] Dr. Jemma Kaur Erythrocyte distribution wid th (RBC) [Ratio] 12.2 % Normal 11.0-15.0 [facility] Comment on above: Performed By: #### C MREP #### [facility] [address] [address] [address] Jemma Kaur Hematocrit (Bld) [Volume fraction] 44.7 % Normal 3 6.0-48.0 [facility] Comment on above: Performed By: #### C MREP #### [facility] [address] [place] [address] Dr. Jemma Kaur Hemoglobin (Bld) [Mass/Vol] 14.9 g/dL Normal 12.0-16. 0 [facility] Comment on above: Performed By: #### C MREP #### [facility] [address] [place] [address] Dr. Jemma Kaur IG # 0.02 10e3/ul Normal 0.00-0.03 [facility] Comment on above: Performed By: #### C MREP #### [facility] [address] [place] [address] Dr. Jemma Kaur IG % 0.3 % Normal 0.0-0.5 [facility] Comment on above: Performed By: #### C MREP #### [facility] [address] [place] [address] Dr. Jemma Kaur LYMPH # 1.4 103/ul Normal 1.2-3.8 [facility] Comment on above: Performed By: #### C MREP #### [facility] [address] [place] [address] Dr. Jemma Kaur Lymphocytes/100 WBC (Bld) 23.1 % Normal 20.5-60.0 [facility] Comment on above: Performed By: #### C MREP #### [facility] [address] [place] [address] Dr. Jemma Kaur MCH (RBC) [Entitic mass] 31.6 pg Normal 26.7-34.0 [facility] Comment on above: Performed By: #### C MREP #### [facility] [address] [place] [address] Dr. Jemma Kaur MCHC (RBC) [Mass/Vol] 33.3 g/dL Normal 29.9-35.2 [facility] Comment on above: Performed By: #### C MREP #### [facility] [address] [place] [address] Dr. Jemma Kaur MCV (RBC) [Entitic vol] 94.9 fL Normal 81.0-99.0 [place] Comment on above: Performed By: #### C MREP #### [facility] [address] [place] [address] Dr. Jemma Kaur MONO # 0.7 103/ul Normal 0.3-0.8 [facility] Comment on above: Performed By: #### C MREP #### [facility] [address] [place] [address] Dr. Jemma Kaur Monocytes/100 WBC (Bld) 11.4 % Normal 1.7-12.0 [place] Comment on above: Performed By: #### C MREP #### [facility] [address] [place] [address] Dr. Jemma Kaur NEUT # 3.7 103/ul Normal 1.4-6.5 [facility] Comment on above: Performed By: #### C MREP #### [facility] [address] [place] [address] Dr. Jemma Kaur Neutrophils/100 WBC (Bld) 61.8 % Normal 43.0-75.0 [facility] Comment on above: Performed By: #### C MREP #### [facility] [address] [place] [address] Dr. Jemma Kaur Platelet mean volume (Bld) [ Entitic vol] 10.1 fL Normal 9.5-13.5 [facility] [place] [facility] Comment on above: Performed By: #### C MREP #### [facility] [address] [place] [address] Dr. Jemma Kaur PLT 173 103/ul Normal 150-450 [facility] Comment on above: Performed By: #### C MREP #### [facility] [address] [place] [address] Dr. Jemma Kaur RBC 4.71 106/ul Normal 4.20-5.40 [facility] Comment on above: Performed By: #### C MREP #### [facility] [address] [place] [address] Dr. Jemma Kaur WBC 5.9 103/ul Normal 4.0-11.0 [facility] Comment on above: Performed By: #### C MREP #### [facility] [address] [address] [address] Jemma Kaur ANNALEE- BMP WITH LIPIDon 2021 Anion gap [Moles/Vol] 11.8 mmol/L Normal [facility] Comment on above: Performed By: #### C ZIYAD #### [facility] [address] [address] [address] Jemma Kaur Calcium [Mass/Vol] 9.0 mg/dL Normal 8.5-10.1 [facility] Comment on above: Performed By: #### C ZIYAD #### [facility] [address] [address] [address] Jemma Kaur Chloride [Moles/Vol] 103 mmol/L Normal 98-107 [facility] Comment on above: Performed By: #### C ZIYAD #### [facility] [address] [address] [address] Jemma Kaur Cholesterol [Mass/Vol] 196 mg/dL Normal <=200 [facility] Comment on above: Performed By: #### C ZIYAD #### [facility] [address] [address] [address] Jemma Kaur Cholesterol in HDL [Mass/Vol] 66 mg/dL Critically high 4 0-60 [facility] Comment on above: Performed By: #### C ZIYAD #### [facility] [address] [address] [address] Jemma Kaur Cholesterol in LDL [Mass/Vol] 116.0 mg/dL Normal [facility] Comment on above: Performed By: #### C ZIYAD #### [facility] [address] [address] [address] Jemma Kaur CO2 [Moles/Vol] 27.4 mmol/L Normal 21.0-32.0 [facility] Comment on above: Performed By: #### C ZIYAD #### [facility] [address] [address] [address] Jemma Kaur Creatinine [Mass/Vol] 1.24 mg/dL Critically high 0.55-1.02 [facility] Comment on above: Performed By: #### C ZIYAD #### [facility] [address] [address] [address] Jemma Kaur EGFR-AF EMIRATI 50 mL/min/1.73m2 Critically low >=60 [facility] Comment on above: Performed By: #### C ZIYAD #### [facility] [address] [address] [address] Jemma Kaur EGFR-NON AF EMIRATI 42 mL/min/1.73m2 Critically low >=60 [facility] Comment on above: Performed By: #### C ZIYAD #### [facility] [address] [address] [address] Jemma Kaur Glucose [Mass/Vol] 109 mg/dL Critically high 74-106 T [facility] Comment on above: Performed By: #### C ZIYAD #### [facility] [address] [address] [address] Jemma Kaur HDL NORMAL > or = 60 mg/dl - LO W CARDIOVASCULAR RISK <40 mg/dl - HIGH CARDIOVASCULAR RISK Normal [facility] Comment on above: Performed By: #### C ZIYAD #### [facility] [address] [address] [address] Jemma Kaur LDL CALC NORMAL SEE BELOW Normal [facility] Comment on above: Result Comment: <100 mg/dl OPTIMAL 100 - 129 mg/dl NEAR OR ABOVE OPTIMAL 130 - 159 mg/dl BORDERLINE HIGH 160 - 189 mg/dl HIGH >190 mg/dl VERY HIGH Performed By: #### C ZIYAD #### [facility] [address] [address] [address] Jemma Kaur Potassium [Moles/Vol] 4.2 mmol/L Normal 3.5-5.1 [facility] Comment on above: Performed By: #### C ZIYAD #### [facility] [address] [address] [address] Jemma Kaur Sodium [Moles/Vol] 138 mmol/L Normal 136-145 [facility] Comment on above: Performed By: #### C BCMAN #### [facility] [address] [address] [address] Jemma Kaur Triglyceride [Mass/Vol] 70 mg/dL Normal <=150 T [facility] Comment on above: Performed By: #### C BCMAN #### [facility] [address] [address] [address] Jemma Kaur Urea nitrogen [Mass/Vol] 15.0 mg/dL Normal 7.0-18.0 [facility] Comment on above: Performed By: #### C BCMAN #### [facility] [address] [address] [address] Jemma Kaur Urea nitrogen/Creatinine [Mass ratio] 12.1 mg/mg Normal [facility] Comment on above: Performed By: #### C BCMAN #### [facility] [address] [address] [address] Jemma Kaur VLDL CALC 14.0 mg/dL Normal [facility] Comment on above: Performed By: #### C BCMAN #### [facility] [address] [address] [address] Jemma Kaur Vital Signs Date Time Vital Sign Value Performing Clinician Facility 02-17-2023 14:00-0400 Body height 170.18 cm Wali Folica Other [facility] Other 02-17-2023 14:00-0400 Body mass index (BMI) [Ratio] 18.73 kg/m2 Wali Folica Other [facility] Other 02-17-2023 14:00-0400 Body weight 54.25 kg Wali Folica Other [facility] Other 02-17-2023 14:00-0400 Diastolic blood pressure 72 mm[Hg] Wali Folica Other [facility] Other 02-17-2023 14:00-0400 Respiratory rate 12 /min Wali Folica Other [facility] Other 02-17-2023 14:00-0400 Systolic blood pressure 156 mm[Hg] Wali Ball Other [facility] Other 04-29-2022 16:30-0500 Body height 170.18 cm Wali Ball Other [facility] Other 04-29-2022 16:30-0500 Body mass index (BMI) [Ratio] 18.13 kg/m2 Wali Ball Other [facility] Other 04-29-2022 16:30-0500 Body weight 52.53 kg Wali Ball Other [facility] Other 04-29-2022 16:30-0500 Diastolic blood pressure 82 mm[Hg] Wali Ball Other [facility] Other 04-29-2022 16:30-0500 Respiratory rate 12 /min Wali Ball Other [facility] Other 04-29-2022 16:30-0500 Systolic blood pressure 122 mm[Hg] Wali Ball Other [facility] Other Encounters Encounter Date Encounter Type Care Provider Facility Start: 03-31-2023 End: 03-31-2023 ambulatory Wlai Ball Other [facility] Other Start: 03-31-2023 Telephone encounter Wali Ball [facility] Start: 03-23-2023 End: 03-23-2023 ambulatory Wali Ball Other [facility] Other Start: 03-23-2023 Telephone encounter Wali Ball [facility] Start: 03-02-2023 End: 03-02-2023 ambulatory Wali Ball Other [facility] Other Start: 03-02-2023 Telephone encounter Wali Flores [facility] Start: 02-26-2023 End: 02-26-2023 ambulatory Wali Flores Other [facility] Other Start: 02-26-2023 Telephone encounter Wali Flores [facility] Start: 02-17-2023 End: 02-17-2023 ambulatory Wali Flores Other [facility] Other Start: 02-17-2023 Patient encounter procedure Wali Flores [facility] Start: 02-16-2023 End: 02-16-2023 ambulatory Wali Flores Other [facility] Other Start: 02-16-2023 Telephone encounter Wali Flores [facility] Start: 08-18-2022 End: 09-17-[address] WALI FLORES Facility:[facility] Start: 07-21-2022 End: 08-15-[address] WALI FLORES Facility:[facility] Start: 07-01-2022 End: 07-01-2022 ambulatory Wali Flores Other [facility] Other Start: 07-01-2022 Telephone encounter Wali Flores [facility] Start: 06-18-2022 End: 07-18-[address] WALI FLORES Facility:[facility] Start: 05-21-2022 End: 06-18-2022 ambulatory SHAIKH Jaylan PALMA Facility:[facility] Start: 05-12-[address] WALI FLORES Facili ty:[facility] Start: 05-07-2022 End: 05-21-2022 ambulatory SHAIKH Jaylan PALMA Facility:[facility] Start: 04-29-2022 End: 04-29-2022 ambulatory Wali Flores Other [facility] Other Start: 04-29-2022 Office outpatient vi sit 25 minutes Wali Flores [facility] Start: 04-27-2022 End: 04-27-2022 ambulatory Wali Flores Other [facility] Other Start: 04-27-2022 Telephone encounter Wali SHEPHERD Caty Flores [facility] Start: 04-23-2022 End: 04-23-2022 ambulatory Wali Flores Other [facility] Other Start: 04-23-2022 Telephone encounter Wali SHEPHERD Caty Flores [facility] Start: 03-31-2022 End: 04-01-[address] WALI FLORES Facility:[facility] Start: 01-24-2022 End: 01-25-[address] WALI FLORES Facility: Start: 12-25-2021 End: 12-26-2021 ambulatory Abdias ARAUJO Facility: [facility] Start: 12-20-2021 ambulatory Abdias ARAUJO Facility : [facility] Start: 12-19-2021 ambulatory Abdias ARAUJO Facility: [facility] Start: 12-16-2021 End: 12-19-2021 ambulatory Abdias ARAUJO Facility:[id number] Start: 12-16-2021 End: 12-21-2021 Evaluation and management of inpatient DR VINCENT LIM Facility:[facility] Start: 10-26-2021 End: 10-27-[address] MALLORY LISTED REQUEST Facility: Procedures Date Procedure Procedure Detail Performing Clinician Start: 12-16-2021 Excision of Ileum, O pen Approach DR WALI FLORES Screening for malign ant neoplasm of breast Wali Flores Other Immunizations Immunization Date Immunization Notes Care Provider Fa polly 12-30-2021 influenza virus vaccine, split virus (incl. purified surface antigen) Wali Flores Other [facility] Other 06-07-2020 COVID-19 Vaccine Pfi zer - Documentation Purposes Only Wali Flores Other [facility] Other 05-17-2020 COVID-19 Vaccine Moderna - Documentation Purposes Only Wali Flores Other [facility] Other 02-21-2020 influenza virus vaccine, split virus (incl. purified surface antigen) Wali Flores Other [facility] Other 02-14-2019 influenza virus vaccine, split virus (incl. purified surface antigen) Wali Flores Other [facility] Other 01-30-2017 influenza virus vaccine, split virus (incl. purified surface antigen) Wali Flores Other [facility] Other 08-14-2015 pneumococcal conjuga te vaccine, 13 valent Wali Flores Other [facility] Other 07-27-2013 tetanus and diphther ia toxoids, adsorbed, preservative free, for adult use (5 Lf of tetanus toxoid and 2 Lf of diphtheria toxoid) Wali Flores Other [facility] Other 02-11-2013 pneumococcal polysaccharide vaccine, 23 valent Wali Flores Other [facility] Other 02-11-2013 tetanus and diphther ia toxoids, adsorbed, preservative free, for adult use (5 Lf of tetanus toxoid and 2 Lf of diphtheria toxoid) Wali Flores Other [facility] Other Payers Date Payer Category Payer Medicare [id number] 1959 Self-pay 1959 Unknown [id number] 1941 Unknown [id number] 2.16.8 [id number] 1941 Unknown [id number] 2.16.8 [id number] 1941 Unknown [id number] 2.16.8 [id number] 1941 Unknown [id number] 2.16.84 [id number] 1941 Unknown [id number] 2.16.84 [id number] 1941 Unknown [id number] 2.16.84 [id number] 1941 Unknown [id number] 2.16.84 [id number] 1941 Unknown [id number] 2.16.84 [id number] 1941 Unknown [id number] 2.16.84 [id number] 1941 Unknown [id number] 2.16.84 [id number] 1941 Unknown [id number] 2.16.84 [id number] 1941 Unknown [id number] 2.16.84 [id number] Unknown [id number] 2.16.84 [id number] Social History Date Type Detail Facility Sex Assigned At [facility] Other Evaluation note 03-31-2023 Note Date & Type Note Facility 03-31-2023 Evaluation note Encounter Date Diagnosis Assessment Notes Mar, Alzheimer's disease with late onset (ICD-10 - G30.1) Mar, Dementia in other diseases classified elsewhere, mild, without behavioral disturbance, psychotic disturbance, mood disturbance, and anxiety (ICD-10 - F02.A0) [facility] Other Evaluation note 03-23-2023 Note Date & Type Note Facility 03-23-2023 Evaluation note Encounter Date Diagnosis Assessment Notes Mar, Hypercholesteremia (ICD-10 - E78.00) [facility] Other Evaluation note 02-26-2023 Note Date & Type Note Facility 02-26-2023 Evaluation note Encounter Date Diagnosis Assessment Notes Feb, Paresthesia (ICD-10 - R20.2) Feb, Paroxysmal atrial fibrillation (ICD-10 - I48.0) Feb, MCI (mild cognitive impairment) (ICD-10 - G31.84) Feb, Carotid bruit, unspecified laterality (ICD-10 - R09.89) [facility] Other Evaluation note 02-17-2023 Note Date & Type Note Facility 02-17-2023 Evaluation note Encounter Date Diagnosis Assessment Notes Jan, Medicare annual wellness visit, subsequent (ICD-10 - Z00.00) Personalized health advice was given to the beneficiary including a written plan for screenings discussed and provided. Advanced care planning reviewed and/or information given as requested. Additional counseling was provided here today in regards to, [ ]. The above visit was performed by [ ], under direct supervision of [ ]. Document reviewed and amended by provider signed below. Jan, Paroxysmal a-fib (ICD-10 - I48.0) This patient is rate controlled. This patient is anticoagulated to prevent thromboembolic events. They are maintaining regular scheduled appts with their sales account associate. Jan, Stage 3a chronic kidney disease (ICD-10 - N18.31) The patient is instructed on adequate control of hypertension and diabetes, if appropriate. They are also educated on the associated risks of NSAIDs and PPI use with kidney disease. They were instructed on adequate fluid balance and to avoid dehydration. Jan, Mild intermittent asthma without complication (ICD-10 - J45.20) Controlled w/o any ER trips. DAYDAY limited to evening only. 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 Continue Colestipol as needed, 1-2 daily Jan, Age-related osteoporosis without current pathological fracture (ICD-10 - M81.0) Ca and Vit D supplements recommended. Weight bearing exercises. Jan, INDRA (generalized anxiety disorder) (ICD-10 - F41.1) Mood stable, sleeping well. Encouraged healthy diet and exercise Keep active Jan, MCI (mild cognitive impairment) (ICD-10 - G31.84) Mild memery problems, at risk for thromboembolic events Forgetful, living alone, family assisting w/ IADL. Minicog 5/5 MoCA Check B12, TSH, CMP, CBC Check MRI Jan, Fatigue, unspecified type (ICD-10 - R53.83) Healthy diet and exercise. Check labs: CBC, B12, TSH Jan, Screening mammography declined (ICD-10 - Z53.20) Instructed patient on monthly SBE and yearly mammograms. Jan, Other Diet instructions: Smaller portions, avoid eating and laying flat, avoid eating or drinking prior to bedtime. [facility] Other Evaluation note 04-29-2022 Note Date & Type Note Facility 04-29-2022 Evaluation note Encounter Date Diagnosis Assessment Notes Apr, Paroxysmal a-fib (ICD-10 - I48.0) No symptoms suggestive of atrial fibrillation. Labs: TSH, H/H, lytes all normal and discussed w/ patient. Holter w/o episodes of atrial fibrillation was reviewed w/ patient. Change to Warfarin due to cost of DOAC - no bleeding complications - CHADS VASC: 3 (age, gender) - HAS BLED: 1 (age) Echo would be informative to assess risk for recurrent AF - assess LVEF and LA size Stress testing doesn't seem necessary at this time. - no hx of chest pain or activity limiting symptoms Apr, Stage 3a chronic kidney disease (ICD-10 - N18.31) The patient is instructed on adequate control of hypertension and diabetes, if appropriate. They are also educated on the associated risks of NSAIDs and PPI use with kidney disease. They were instructed on adequate fluid balance and to avoid dehydration. Apr, Mild intermittent asthma without complication (ICD-10 - J45.20) Stable w/ rare use of DAYDAY and Singulair - seasonal Apr, Post-cholecystecto my syndrome (ICD-10 - K91.5) Diet instructions, avoid milk and juices, increase fiber, yogurt and bananas. Initiate Colestipol for bile induced diarrhea Apr, Age-related osteoporosis without current pathological fracture (ICD-10 - M81.0) Calcium and Vitamin D supplement. Weight bearing exercise Apr, Irritable bowel syndrome with diarrhea (ICD-10 - K58.0) Diet instructions, Imodium as needed Apr, Gastroesophageal reflux disease with esophagitis without hemorrhage (ICD-10 - K21.00) Diet instructions: Smaller portions, avoid eating and laying flat, avoid eating or drinking prior to bedtime. Apr, INDRA (generalized anxiety disorder) (ICD-10 - F41.1) Healthy diet and keep active. 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 POSTOPERATIVE DIAGNOSIS: Small bowel obstruction with ischemic segment of terminal ileum. PROCEDURE: Exploratory laparotomy with small bowel resection with enteroenterostomy. SURGEON: Abdias Araujo M.D. ANESTHESIA: General endotracheal. ESTIMATED BLOOD LOSS: Less than 10 mL. INDICATIONS AND CONSENT: Patient is an 81-year-old female who presented early in the morning of 12/16/2021 with abdominal pain, nausea. Workup revealed dilated small bowel with a possible distal small bowel obstruction. She did have an NG tube placed and some mild improvement in her symptoms. However, as the day progressed, her pain worsened and she was found to have increased tenderness on exam. It was felt that she likely had progressed to complete bowel obstruction requiring a laparotomy. Indications, risks, benefits, alternatives of proceeding with exploratory laparotomy, possible small bowel resection, possible lysis of adhesions were explained extensively to the patient, including the risks of bleeding, infection, bowel injury, anastomotic leak, blood clot, pulmonary embolus, heart attack, anesthetic complications, need for further surgery. All of her questions were answered. Informed consent was obtained. This was also discussed with the patient's son. PROCEDURE: Patient was brought to the operating room, placed in the supine position. General anesthesia was induced. She was prepped and draped in the usual sterile fashion. A Garrison catheter was also inserted using sterile technique. Midline incision was made above the area of her previous lower transverse scar and just to above the umbilicus. It was carried down through subcutaneous tissue using sharp dissection, as well as electrocautery. The abdomen was entered sharply. A Hyampom retractor was placed. The patient was noted to have bloody fluid in the pelvis and an area of ischemic distal ileum. There was noted to be a thin band, which the ileum had wrapped itself around and was a tight knot. It was approximately a 12 cm segment of terminal ileum that was ischemic. The band was lysed. The ileum was freed up from other pelvic adhesions. The ischemic segment was then excised using INDIO staplers. The mesentery was taken down using LigaSure. A side to side functional end to end anastomosis was then created with the reload of the INDIO, closed with the GA- 60 stapler. The staple line was then oversewn. It should be noted, there was good hemostasis from the staple line. Mesenteric defect was closed with 3-0 chromic suture. The anastomosis was palpated and found to be widely patent. The abdomen was then irrigated with warm saline. There was good hemostasis. The small bowel was run from the terminal ileum up to the ligament of Treitz and there was no other obstruction or adhesions noted. The bowel was placed back in the abdomen, and the omentum, which was minimal, was placed down over the incision. The incision was then closed with running #1 Prolene suture as well as interrupted 0 Vicryl sutures. Subcutaneous tissue was irrigated. It was closed with interrupted 3-0 Monocryl sutures. The skin was then closed with a running 4-0 subcuticular Monocryl suture and skin glue. Sterile pressure dressing was applied as well as an abdominal binder. Sponge and needle counts were correct x2 per nursing personnel. Patient tolerated procedure well, was extubated, sent to recovery room in good condition. CC: Wali Flores D.O. [facility] Evaluation note Note Date & Type Note Facility Evaluation note No Information [facility] Other History general Narrative - Reported Note Date & Type Note Facility History general Narrative - Reported Type Medical History INDRA (generalized anxiety disorde r) Medical History Fracture of unspecif ied part of scapula, unspecified shoulder, initial encounter for closed fracture Medical History Age-related osteopor osis without current pathological fracture Medical History Paresthesia Medical History Encounter for screen ing breast examination Medical History Inguinal hernia of r ight side without obstruction or gangrene Medical History Underweight Medical History Mammogram declined Medical History Stage 3b chronic kid gianna disease (CKD) Medical History Mild intermittent as thma without complication Medical History Gastroesophageal ref lux disease with esophagitis without hemorrhage Medical History S/P small bowel resection Medical History History of small bowel obstructi on Medical History Post-cholecystectomy syndrome Medical History Fatigue, unspecified type Medical History Small bowel obstruction Medical History Paroxysmal atrial fibrillation Surgical History Small bowel resection 12/27/21 Surgical History T & A 05/02/11 Hospitalization History see surgical history [employer] Other Summary Purpose Family History No Family History Records FoundNo Family History Records Found Advance Directives No Advanced Directives Records FoundNo Advanced Directives Records Found Reason for Referral Reason *FU 03/31 Cognitiv e decline Diagnosis 1 MCI (mild cognitive impairment) (G31.84) Referral Organization [facility] Referring Provider First Name Wali Referring Provider Last Name Mark Referring Provider Specialty Internal Me lynn Referred Organization [facility] Referred Provider Rohan Wallace Referred Address [address],[place], [place],[address] Referred Provider Specialty Neurology Referral Priority Routine General Notes Patient presents wit h c/o decreased memory. She lives alone w/ some assistance from children for IADL. She is generally forgetful but maintains healthy, clean appearance. She is bothered by her memory issues and her father w/ dementia. She scored 5/5 on the Mini Cog but only 21/30 on the MoCA. Her labs and MRI did not reveal any obvious findings to explain her memory problems. She likely does mild cognitive impairment and is being referred for further evaluation and recommendations on treatment. Annika Odell 03/24/2023 01:51:25 PM >received today, referral form attached, notes locked, ins cards, labs, imaging attached as well, referral faxed Clinical Notes Include all labs, ca rotid US, MRA brain Additional Source Comments INFORMATION SOURCE (unrecogn ized section and content) DATE CREATED AUTHOR 01/18/2022 [facility] DATE CREATED AUTHOR AUTHOR'S ORGANIZ ATION 09/26/2022 [facility] REASON FOR VISIT (unrecogniz ed section and content) Holter ResultsLabsMedication DiscussionrefillNo InformationWellness/Memory Issuestest resultsMRIWellness/Memory IssuesCarotid U/S resultsNo Information FOR RECORDS PERTAINING TO PATIENTS WHO ARE OR HAVE BEEN ENROLLED IN A CHEMICAL DEPENDENCY/SUBSTANCEABUSE PROGRAM, SOME INFORMATION MAY BE OMITTED. This clinical summary was aggregated from multiple sources. Caution should be exercised in using it in the provision of clinical care. This summary normalizes information from multiple sources, and as a consequence, information in this document may materially change the coding, format and clinical context of patient data. In addition, data may be omitted in some cases. CLINICAL DECISIONS SHOULD BE BASED ON THE PRIMARY CLINICAL RECORDS. [facility]. provides no warranty or guarantee of the accuracy or completeness of information in this document.
== END 2023-02-25 12:22 | disposition home or self-care (01) ==
LOC: MRI 12:22
PROVIDERS: PCP Internal Medicine; Visit Provider Internal Medicine
DX: I48.0 Paroxysmal atrial fibrillation (principal); G31.84 Mild cognitive impairment of uncertain or unknown etiology; J32.0 Chronic maxillary sinusitis
CPT/HCPCS: 70544; 93005

== ENCOUNTER 2023-03-19 10:18 | Outpatient (OUT) | payer MEDICARE, OTHER, SELFPAY ==
--- NOTE | 2023-03-19 10:21 | US_ITS ---
[address] [address] Patient Name: GAGE ALEXANDRE MRN: [id number] date: 1940 Sex: F Assigned Patient Location: Current Patient Location: Accession/Order Number: [id number] Exam Date: 03/19/2023 10:25 Report Date: 03/20/2023 08:14 At the request of: JAMIA JACOBS Procedure: US carotid duplex BI EXAMINATION: US carotid duplex BI HISTORY: Carotid Bruit R09.89 COMPARISON: No relevant comparison available. TECHNIQUE: Duplex Doppler ultrasound analysis of carotid and vertebral arteries. . Bilateral carotid arterial duplex examination was performed using B-mode, color flow and spectral analysis. Carotid stenosis is reported according to validated velocity parameters, similar to NASCET criteria. FINDINGS: RIGHT CAROTID ARTERY: Mild atherosclerotic plaque within carotid bulb without significant stenosis. RIGHT VERTEBRAL: Antegrade flow. Subclavian: PSV: 90.3 cm/s EDV: 0.0 cm/s CCA: Prox: PSV: 61.2 cm/s EDV: 12.8 cm/s Mid: PSV: 70.9 cm/s EDV: 12.8 cm/s Distal: PSV: 70.9 cm/s EDV: 14.4 cm/s BULB: PSV: 32.2 cm/s EDV: 7.8 cm/s ICA: Prox: PSV: 58.4 cm/s EDV: 10.4 cm/s Mid: PSV: 72.4 cm/s EDV: 18.6 cm/s Distal: PSV: 90.5 cm/s EDV: 15.6 cm/s ECA: PSV: 86.5 cm/s EDV: 0.0 cm/s VERTEBRAL: PSV: 42.7 cm/s EDV: 13.1 cm/s ICA/CCA ratio: PSV: 1.3 EDV: 1.1 LEFT CAROTID ARTERY: Moderate, bordering on marked atherosclerotic plaque within carotid bulb resulting in 71% area reduction. LEFT VERTEBRAL: Antegrade flow. Subclavian: PSV: 104.3 cm/s EDV: 4.4 cm/s CCA: Prox: PSV: 81.4 cm/s EDV: 14.1 cm/s Mid: PSV: 53.7 cm/s EDV: 9.8 cm/s Distal: PSV: 57.0 cm/s EDV: 13.1 cm/s BULB: PSV: 58.1 cm/s EDV: 13.1 cm/s ICA: Prox: PSV: 94.3 cm/s EDV: 19.3 cm/s Mid: PSV: 95.6 cm/s EDV: 20.6 cm/s Distal: PSV: 58.1 cm/s EDV: 10.2 cm/s ECA: PSV: 121.0 cm/s EDV: 7.9 cm/s VERTEBRAL: PSV: 41.2 cm/s EDV: 9.2 cm/s ICA/CCA ratio: PSV: 1.2 EDV: 1.5 US/US carotid duplex BI IMPRESSION: 1. Right carotid artery minimal atherosclerotic disease with 0-49% flow stenosis. 2. Left carotid artery moderate-marked atherosclerotic disease within carotid bulb resulting in 71% area reduction, but only 0-49% flow stenosis. Spectral Doppler US Thresholds Stenosis (%) PSV (cm/sec) VICA/VCCA 0-49 <150 <2.5 50-69 150-225 2.5-4.0 >70 >225 >4.0 Electronically authenticated by: MELINA ALEXANDRE Date: 03/20/2023 08:14
== END 2023-03-19 10:19 | disposition home or self-care (01) ==
LOC: US 10:18
PROVIDERS: PCP Internal Medicine; Visit Provider Internal Medicine
DX: R09.89 Other specified symptoms and signs involving the circulatory and respiratory systems (principal)
CPT/HCPCS: 93880

== ENCOUNTER 2023-03-20 09:40 | Outpatient (RCR) | payer MEDICARE, OTHER, SELFPAY | END 2023-04-17 15:22 | disposition home or self-care (01) | LOC: MM 09:40 | PROVIDERS: PCP Internal Medicine; Visit Provider Internal Medicine | DX: Z51.81 Encounter for therapeutic drug level monitoring (principal); Z79.01 Long term (current) use of anticoagulants; I48.0 Paroxysmal atrial fibrillation ==

== ENCOUNTER 2023-04-10 12:40 | Outpatient (OUT) | payer MEDICARE, OTHER, SELFPAY ==
--- OUTSIDE RECORDS SUMMARY | 2023-04-10 12:50 | XMS_ITS | CCD ---
Author Name Unknown Address [address] [place] [address] Organization [facility] Care Team Providers Care Station Worker Name Role Phone PRERNA, Abdias Joshi Attending Unavailable NILL, Abdias Joshi Attending Unavailable NILL, Abdias Joshi Attending Unavailable Wali Flores Unavailable MARK, DR BLANDON Primary Care Unavailable BALL, DR BLANDON Consulting Unavailable BALL, DR BLANDON Attending Unavailable BALL, DR BLANDON Admitting Unavailable BALL, DR BLANDON Primary Care Unavailable FAWWAD, H Admitting Unavailable FAWWAD, SHAIKH Jaylan Attending Unavailable BALL, DR BLANDON Primary Care [...] Lopez Admitting Unavailable SMITH ., DR JENNIFER Fuentes Consulting Unavailable WEST, DR JANE Godoy Consulting [...] sources) HYDROmorphone; Translations: [HYDROmorphone] Drug Allergy 3 [facility] Repository (3 sources) Penicillins; Translations: [penicillins] Propensity to adverse reactions (disorder) 3 [facility] Repository (11 sources) penicillAMINE Drug Allergy Unknown [employer] Other (7 sources) Substance with penicillin structure and antibacterial mechanism of action (substance) Drug allergy 2 PENICILLINS [facility]with Other Medications Current Medications Medication Drug Class(es) Dates Sig (Normalized) Sig (Original) [id number] actuat albuterol 0.09 mg/actuat metered dose [...] Onset: 3 Episodic Other aftercare (1 source) correction (current) use of anticoagulants; Translations: [SNF CURRNT USE ANTICOAGULANTS] Onset: 3 Episodic Other [...] 03-31-2022 BASO # 0.1 103/ul Normal 0.0-0.1 [facility] Comment on above: Performed By: #### C BC #### [facility] [address] [place] [address] Dr. Jemma Kaur Basophils/100 WBC (Bld) 1.3 % Normal 0.2-2.0 [facility] Comment on above: Performed By: #### C BC #### [facility] [address] [place] [address] Dr. Jemma Kaur EO # 0.2 103/ul Normal 0.0-0.7 [facility] Comment on above: Performed By: #### C BC #### [facility] [address] [place] [address] Dr. Jemma Kaur Eosinophils/100 WBC (Bld) 2.5 % Normal 0.9-7.0 [facility] Comment on above: Performed By: #### C BC #### [facility] [address] [place] [address] Dr. Jemma Kaur Erythrocyte distribution width (RBC) [Ratio] 12.3 % Normal 11.0-15.0 [facility] Comment on above: Performed By: #### C BC #### [facility] [address] [place] [address] Dr. Jemma Kaur Hematocrit (Bld) [Volume fraction] 43.6 % Normal 36.0-48.0 [facility] Comment on above: Performed By: #### C BC #### [facility] [address] [place] [address] Dr. Jemma Kaur Hemoglobin (Bld) [Mass/Vol] 14.7 g/dL Normal 12.0-16.0 [facility] Comment on above: Performed By: #### C BC #### [facility] [address] [place] [address] Dr. Jemma Kaur IG # 0.02 10e3/ul Normal 0.00-0.03 [facility] Comment on above: Performed By: #### C BC #### [facility] [address] [place] [address] Dr. Jemma Kaur IG % 0.3 % Normal 0.0-0.5 [facility] Comment on above: Performed By: #### C BC #### [facility] [address] [place] [address] Dr. Jemma Kaur LYMPH # 1.2 103/ul Normal 1.2-3.8 [facility] Comment on above: Performed By: #### C BC #### [facility] [address] [place] [address] Dr. Jemma Kaur Lymphocytes/100 WBC (Bld) 18.7 % Critically low 20.5-60.0 [facility] Comment on above: Performed By: #### C BC #### [facility] [address] [place] [address] Dr. Jemma Kaur MANUAL DIFF REQ NO Normal [facility] Comment on above: Performed By: #### C BC #### [facility] [address] [place] [address] Dr. Jemma Kaur MCH (RBC) [Entitic mass] 31.5 pg Normal 26.7-34.0 [facility] Comment on above: Performed By: #### C BC #### [facility] [address] [place] [address] Dr. Jemma Kaur MCHC (RBC) [Mass/Vol] 33.7 g/dL Normal 29.9-35.2 [facility] Comment on above: Performed By: #### C BC #### [facility] [address] [place] [address] Dr. Jemma Kaur MCV (RBC) [Entitic vol] 93.6 fL Normal 81.0-99.0 [facility] Comment on above: Performed By: #### C BC #### [facility] [address] [place] [address] Dr. Jemma Kaur MONO # 0.6 103/ul Normal 0.3-0.8 [facility] Comment on above: Performed By: #### C BC #### [facility] [address] [place] [address] Dr. Jemma Kaur Monocytes/100 WBC (Bld) 9.3 % Normal 1.7-12.0 [facility] Comment on above: Performed By: #### C BC #### [facility] [address] [place] [address] Dr. Jemma Kaur NEUT # 4.3 103/ul Normal 1.4-6.5 [facility] Comment on above: Performed By: #### C BC #### [facility] [address] [place] [address] Dr. Jemma Kaur Neutrophils/100 WBC (Bld) 67.9 % Normal 43.0-75.0 [facility] Comment on above: Performed By: #### C BC #### [facility] [address] [place] [address] Dr. Jemma Kaur Platelet mean volume (Bld) [Entitic vol] 10.2 fL Normal 9.5-13.5 [facility] Comment on above: Performed By: #### C BC #### [facility] [address] [place] [address] Dr. Jemma Kaur PLT 159 103/ul Normal 150-450 [facility] Comment on above: Performed By: #### C BC #### [facility] [address] [place] [address] Dr. Jemma Kaur RBC 4.66 106/ul Normal 4.20-5.40 [facility] Comment on above: Performed By: #### C BC #### [facility] [address] [place] [address] Dr. Jemma Kaur WBC 6.4 103/ul Normal 4.0-11.0 [facility] Comment on above: Performed By: #### C BC #### [facility] [address] [place] [address] Dr. Jemma Kaur PROF 14(COMP METB)on 022 Albumin [Mass/Vol] 3.4 g/dL Normal 3.4-5.0 [facility] Comment on above: Performed By: #### L IPA, BMP #### [facility] [address] [place] [address] Dr. Jemma Kaur Albumin/Globulin [Mass ratio] 1.0 {ratio} Normal [facility] Comment on above: Performed By: #### L IPA, BMP #### [facility] [address] [address] [address] Jemma Kaur ALP [Catalytic activity/Vol] 67 U/L Normal 46-116 [facility] Comment on above: Performed By: #### L IPA, BMP #### [facility] [address] [place] [address] Dr. Jemma Kaur ALT [Catalytic activity/Vol] 15 U/L Normal 14-59 [facility] Comment on above: Performed By: #### L IPA, BMP #### [facility] [address] [place] [address] Dr. Jemma Kaur Anion gap [Moles/Vol] 7.8 mmol/L Normal [facility] Comment on above: Performed By: #### L IPA, BMP #### [facility] [address] [place] [address] Dr. Jemma Kaur AST [Catalytic activity/Vol] 19 U/L Normal 15-37 [facility] Comment on above: Performed By: #### L IPA, BMP #### [facility] [address] [address] [address] Jemma Kaur Bilirubin [Mass/Vol] 1.2 mg/dL Critically high 0.2-1.0 [facility] Comment on above: Performed By: #### L IPA, BMP #### [facility] [address] [address] [address] Jemma Kaur Calcium [Mass/Vol] 8.8 mg/dL Normal 8.5-10.1 [facility] Comment on above: Performed By: #### L IPA, BMP #### [facility] [address] [address] [address] Jemma Kaur Chloride [Moles/Vol] 103 mmol/L Normal 98-107 [facility] Comment on above: Performed By: #### L IPA, BMP #### [facility] [address] [place] [address] Dr. Jemma Kaur CO2 [Moles/Vol] 31.1 mmol/L Normal 21.0-32.0 [facility] Comment on above: Performed By: #### L IPA, BMP #### [facility] [address] [place] [address] Dr. Jemma Kaur Creatinine [Mass/Vol] 0.85 mg/dL Normal 0.55-1.02 [facility] Comment on above: Performed By: #### L IPA, BMP #### [facility] [address] [place] [address] Dr. Jemma Kaur EGFR-AF VINCENTIAN >60 Normal >=60 [facility] Comment on above: Performed By: #### L IPA, BMP #### [facility] [address] [place] [address] Dr. Jemma Kaur EGFR-NON AF VINCENTIAN >60 Normal >=60 [facility] Comment on above: Performed By: #### L IPA, BMP #### [facility] [address] [place] [address] Dr. Jemma Kaur Globulin (S) [Mass/Vol] 3.5 g/dL Normal [facility] Comment on above: Performed By: #### L IPA, BMP #### [facility] [address] [place] [address] Dr. Jemma Kaur Glucose [Mass/Vol] 78 mg/dL Normal 74-106 [facility] Comment on above: Performed By: #### L IPA, BMP #### [facility] [address] [place] [address] Dr. Jemma Kaur Potassium [Moles/Vol] 3.9 mmol/L Normal 3.5-5.1 [facility] Comment on above: Performed By: #### L IPA, BMP #### [facility] [address] [place] [address] Dr. Jemma Kaur Protein [Mass/Vol] 6.9 g/dL Normal 6.4-8.2 [facility] Comment on above: Performed By: #### L IPA, BMP #### [facility] [address] [address] [address] Jemma Kaur Sodium [Moles/Vol] 138 mmol/L Normal 136-145 [facility] Comment on above: Performed By: #### L IPA, BMP #### [facility] [address] [address] [address] Jemma Kaur Urea nitrogen [Mass/Vol] 14.0 mg/dL Normal 7.0-18.0 [facility] Comment on above: Performed By: #### L IPA, BMP #### [facility] [address] [place] [address] Dr. Jemma Kaur Urea nitrogen/Creatinine [Mass ratio] 16.5 mg/mg Normal [facility] Comment on above: Performed By: #### L IPA, BMP #### [facility] [address] [place] [address] Dr. Jemma Kaur TSHon 03-31-2022 TSH 1.710 uIU/mL Normal 0.358-3.740 [facility] Comment on above: Performed By: #### L IPA, BMP #### [facility] [address] [place] [address] Dr. Jemma Kaur PROF CHEM 8 (BAS METB)on Anion gap [Moles/Vol] 8.2 mmol/L Normal [facility] Comment on above: Performed By: #### C BCMAN #### [facility] [address] [place] [address] Dr. Jemma Kaur Calcium [Mass/Vol] 9.3 mg/dL Normal 8.5-10.1 [facility] Comment on above: Performed By: #### C BCVANESA #### [facility] [address] [place] [address] Dr. Jemma Kaur Chloride [Moles/Vol] 105 mmol/L Normal 98-107 [facility] Comment on above: Performed By: #### C ZIYAD #### [facility] [address] [address] [address] Jemma Kaur CO2 [Moles/Vol] 31.9 mmol/L Normal 21.0-32.0 [facility] Comment on above: Performed By: #### C BCVANESA #### [facility] [address] [address] [address] Jemma Kaur Creatinine [Mass/Vol] 0.86 mg/dL Normal 0.55-1.02 [facility] Comment on above: Performed By: #### C BCMAN #### [facility] [address] [address] [address] Jemma Kaur EGFR-AF VINCENTIAN >60 Normal >=60 [facility] Comment on above: Performed By: #### C BCVANESA #### [facility] [address] [address] [address] Jemma Kaur EGFR-NON AF VINCENTIAN >60 Normal >=60 [facility] Comment on above: Performed By: #### C BCVANESA #### [facility] [address] [address] [address] Jemma Kaur Glucose [Mass/Vol] 104 mg/dL Normal 74-106 [facility] Comment on above: Performed By: #### C BCVANESA #### [facility] [address] [address] [address] Jemma Kaur Potassium [Moles/Vol] 4.1 mmol/L Normal 3.5-5.1 [facility] Comment on above: Performed By: #### C BCVANESA #### [facility] [address] [address] [address] Jemma Kaur Sodium [Moles/Vol] 141 mmol/L Normal 136-145 [facility] Comment on above: Performed By: #### C BCVANESA #### [facility] [address] [address] [address] Jemma Kaur Urea nitrogen [Mass/Vol] 13.0 mg/dL Normal 7.0-18.0 [facility] Comment on above: Performed By: #### C BCVANESA #### [facility] [address] [address] [address] Jemma Kaur Urea nitrogen/Creatinine [Mass ratio] 15.1 mg/mg Normal [facility] Comment on above: Performed By: #### C BCMAN #### [facility] [address] [id number] Jemma Kaur UA RANDOM W/MICROSCOPICon BACTERIA NONE SEEN Normal NONE SEEN [facility] Comment on above: Performed By: #### U AMIC ####[facility] [address] [address]Dr. Jemma Kaur Bilirubin Ql (U) Negative Normal NEGATIVE [facility] Comment on above: Performed By: #### U AMIC ####[facility] [address] [address]Dr. Jemma Kaur CAST NONE SEEN Normal NONE SEEN [facility] Comment on above: Performed By: #### U AMIC ####[facility] [address] [address]Dr. Jemma Kaur Clarity (U) CLEAR Normal CLEAR [facility] Comment on above: Performed By: #### U AMIC ####[facility] [address] [address]Dr. Jemma Kaur Color (U) LT. YELLOW Normal YELLOW [facility] Comment on above: Performed By: #### U AMIC ####[facility] [address] [id number][address] Jemma Kaur Crystals LM Nom (Urine sed) NONE SEEN Normal NONE SEEN [facility] Comment on above: Performed By: #### U AMIC ####[facility] [address] [id number]. Jemma Kaur Epithelial cells LM Ql (Urine sed) FEW Abnormal NONE SEEN /RARE [facility] Comment on above: Performed By: #### U AMIC ####[facility] [address] [address]Dr. Jemma Kaur Glucose Ql (U) Negative Normal NEGATIVE [facility] Comment on above: Performed By: #### U AMIC ####[facility] [address] [address]Dr. Jemma Kaur Hemoglobin Ql (U) Negative Normal NEGATIVE [facility] Comment on above: Performed By: #### U AMIC ####[facility] [address] [place], [place] [address]Dr. Jemma Kaur Ketones Ql (U) Negative Normal NEGATIVE [facility] Comment on above: Performed By: #### U AMIC ####[facility] [address] [place], [place] [address]Dr. Yaracarmelo Kaur LEUKOCYTES Negative Normal NEGATIVE [facility] Comment on above: Performed By: #### U AMIC ####[facility] [address] [place], [place] [address]Dr. Jemma Kaur MUCOUS NONE SEEN Normal NONE SEEN [facility] Comment on above: Performed By: #### U AMIC ####[facility] [address] [place], [place] [address]Dr. Jemma Vincent Nitrite Ql (U) Negative Normal NEGATIVE [facility] Comment on above: Performed By: #### U AMIC ####[facility] [address] [place], [place] [address]Dr. Jemma Kaur pH (U) 6.0 [pH] Normal 5-9 [facility] Comment on above: Performed By: #### U AMIC ####[facility] [address] [place], [place] [address]Dr. Yaracarmelo Vincent RBC NONE SEEN Abnormal 0-2 [facility] Comment on above: Performed By: #### U AMIC ####[facility] [address] [place], [place] [address]Dr. Jemma Kaur SPEC GRAVITY 1.015 Normal 1.005-<=1.025 [facility] Comment on above: Performed By: #### U AMIC ####[facility] [address] [place], [place] [address]Dr. Jemma Kaur UA PROTEIN Negative Normal NEGATIVE/ TRACE [facility] Comment on above: Performed By: #### U AMIC ####[facility] [address] [place], [place] [address]Dr. Jemma Kaur Urobilinogen Qn (U) 0.2 {Rober'U}/dL Normal 0.2 - 1. 0 [facility] Comment on above: Performed By: #### U AMIC ####[facility] [address] [place], [place] [address]SpKayla Kaur WBC NONE SEEN Normal NONE SEEN [facility] Comment on above: Performed By: #### U AMIC ####[facility] [address] [place], [place] [address]Zt. Jemma Kaur General Surgery Office/Clini c Noteon 12-27-2021 General [...] History Alzheimer's disease: Father. Cancer: Mother. Normal [facility] Comment on above: Result Comment: Elec tronically Signed By: Abdias ARAUJO MD\.br\Date and Time Signed: 12/27/21 17:12 EDT Ambulatory Visit Summaryon 0 12-25-2021 Ambulatory Visit Summary KERI HERRON :1940 Visit Date:12/25/2021 Ambulatory Visit Instructions Your Care Team Attending Physician - Abdias ARAUJO MD Primary Care Physician - WALI FLORES DO [...] History of pancreatitis Small bowel obstruction Normal [facility] RAD - MISCon 12-24-2021 RAD - MIS [id number] Normal [facility] CBC AUTO DIFFon 12-21-2021 BASO # 0.0 103/ul Normal 0.0-0.1 [facility] Comment on above: Performed By: #### L IPA, BMP #### [facility] [address] [place] [address] Dr. Jemma Kaur Basophils/100 WBC (Bld) 0.7 % Normal 0.2-2.0 [facility] Comment on above: Performed By: #### L IPA, BMP #### [facility] [address] [place] [address] Dr. Jemma Kaur EO # 0.4 103/ul Normal 0.0-0.7 [facility] Comment on above: Performed By: #### L IPA, BMP #### [facility] [address] [place] [address] Dr. Jemma Kaur Eosinophils/100 WBC (Bld) 7.1 % Critically high 0.9-7.0 [facility] Comment on above: Performed By: #### L IPA, BMP #### [facility] [address] [place] [address] Dr. Jemma Kaur Erythrocyte distribution width (RBC) [Ratio] 12.3 % Normal 11.0-15.0 [facility] Comment on above: Performed By: #### L IPA, BMP #### [facility] [address] [place] [address] Dr. Jemma Kaur Hematocrit (Bld) [Volume fraction] 36.5 % Normal 36.0-48.0 [facility] Comment on above: Performed By: #### L IPA, BMP #### [facility] [address] [place] [address] Dr. Jemma Kaur Hemoglobin (Bld) [Mass/Vol] 12.3 g/dL Normal 12.0-16.0 [facility] Comment on above: Performed By: #### L IPA, BMP #### [facility] [address] [place] [address] Dr. Jemma Kaur IG # 0.03 10e3/ul Normal 0.00-0.03 [facility] Comment on above: Performed By: #### L IPA, BMP #### [facility] [address] [place] [address] Dr. Jemma Kaur IG % 0.5 % Normal 0.0-0.5 [facility] Comment on above: Performed By: #### L IPA, BMP #### [facility] [address] [place] [address] Dr. Jemma Kaur LYMPH # 0.8 103/ul Critically low 1.2-3.8 [facility] Comment on above: Performed By: #### L IPA, BMP #### [facility] [address] [place] [address] Dr. Jemma Kaur Lymphocytes/100 WBC (Bld) 14.5 % Critically low 20.5-60.0 [facility] Comment on above: Performed By: #### L IPA, BMP #### [facility] [address] [place] [address] Dr. Jemma Kaur MANUAL DIFF REQ NO Normal [facility] Comment on above: Performed By: #### L IPA, BMP #### [facility] [address] [place] [address] Dr. Jemma Kaur MCH (RBC) [Entitic mass] 31.6 pg Normal 26.7-34.0 [facility] Comment on above: Performed By: #### L IPA, BMP #### [facility] [address] [place] [address] Dr. Jemma Kaur MCHC (RBC) [Mass/Vol] 33.7 g/dL Normal 29.9-35.2 [facility] Comment on above: Performed By: #### L IPA, BMP #### [facility] [address] [place] [address] Dr. Jemma Kaur MCV (RBC) [Entitic vol] 93.8 fL Normal 81.0-99.0 [facility] Comment on above: Performed By: #### L IPA, BMP #### [facility] [address] [place] [address] Dr. Jemma Kaur MONO # 0.7 103/ul Normal 0.3-0.8 [facility] Comment on above: Performed By: #### L IPA, BMP #### [facility] [address] [place] [address] Dr. Jemma Kaur Monocytes/100 WBC (Bld) 13.2 % Critically high 1.7-12.0 [facility] Comment on above: Performed By: #### L IPA, BMP #### [facility] [address] [place] [address] Dr. Jemma Kaur NEUT # 3.5 103/ul Normal 1.4-6.5 [facility] Comment on above: Performed By: #### L IPA, BMP #### [facility] [address] [place] [address] Dr. Jemma Kaur Neutrophils/100 WBC (Bld) 64.0 % Normal 43.0-75.0 [facility] Comment on above: Performed By: #### L IPA, BMP #### [facility] [address] [place] [address] Dr. Jemma Kaur Platelet mean volume (Bld) [Entitic vol] 9.7 fL Normal 9.5-13.5 [facility] Comment on above: Performed By: #### L IPA, BMP #### [facility] [address] [place] [address] Dr. Jemma Kaur PLT 172 103/ul Normal 150-450 [facility] Comment on above: Performed By: #### L IPA, BMP #### [facility] [address] [address] [address] Jemma Kaur RBC 3.89 106/ul Critically low 4.20-5.40 [facility] Comment on above: Performed By: #### L IPA, BMP #### [facility] [address] [place] [address] Dr. Jemma Kaur WBC 5.5 103/ul Normal 4.0-11.0 [facility] Comment on above: Performed By: #### L IPA, BMP #### [facility] [address] [place] [address] Dr. Jemma Kaur LIPASEon 12-21-2021 Lipase [Catalytic activity/Vol] 75.0 U/L Normal 73.0-393.0 [facility] Comment on above: Performed By: #### C BCVANESA #### [facility] [address] [place] [address] Dr. Jemma Kaur PROF CHEM 8 (BAS METB)on Anion gap [Moles/Vol] 9.3 mmol/L Normal [facility] Comment on above: Performed By: #### C ZIYAD #### [facility] [address] [place] [address] Dr. Jemma Kaur Calcium [Mass/Vol] 8.6 mg/dL Normal 8.5-10.1 [facility] Comment on above: Performed By: #### C BCVANESA #### [facility] [address] [place] [address] Dr. Jemma Kaur Chloride [Moles/Vol] 107 mmol/L Normal 98-107 [facility] Comment on above: Performed By: #### C BCMAN #### [facility] [address] [place] [address] Dr. Jemma Kaur CO2 [Moles/Vol] 28.6 mmol/L Normal 21.0-32.0 [facility] Comment on above: Performed By: #### C BCMAN #### [facility] [address] [place] [address] Dr. Jemma Kaur Creatinine [Mass/Vol] 0.74 mg/dL Normal 0.55-1.02 [facility] Comment on above: Performed By: #### C ZIYAD #### [facility] [address] [address] [address] Jemma Kaur EGFR-AF VINCENTIAN >60 Normal >=60 [facility] Comment on above: Performed By: #### C GERMANMAN #### [facility] [address] [id number] [address] Jemma Kaur EGFR-NON AF VINCENTIAN >60 Normal >=60 [facility] Comment on above: Performed By: #### C GERMANMAN #### [facility] [address] [address] [address] Jemma Kaur Glucose [Mass/Vol] 97 mg/dL Normal 74-106 [facility] Comment on above: Performed By: #### C ZIYAD #### [facility] [address] [address] [address] Jemma Kaur Potassium [Moles/Vol] 3.9 mmol/L Normal 3.5-5.1 [facility] Comment on above: Performed By: #### C ZIYAD #### [facility] [address] [address] [address] Jemma Kaur Sodium [Moles/Vol] 141 mmol/L Normal 136-145 [facility] Comment on above: Performed By: #### C ZIYAD #### [facility] [address] [address] [address] Jemma Kaur Urea nitrogen [Mass/Vol] 9.0 mg/dL Normal 7.0-18.0 [facility] Comment on above: Performed By: #### C ZIYAD #### [facility] [address] [address] [address] Jemma Kaur Urea nitrogen/Creatinine [Mass ratio] 12.2 mg/mg Normal [facility] Comment on above: Performed By: #### C ZIYAD #### [facility] [address] [address] [address] Jemma Kaur URINE MICROSCOPIC ONLYon BACTERIA TRACE Abnormal NONE SEEN [facility] Comment on above: Performed By: #### C MREP #### [facility] [address] [place] [address] Dr. Jemma Kaur Bacteria identified Cx Nom (U) NOT INDICATED Normal [facility] Comment on above: Performed By: #### C MREP #### [facility] [address] [place] [address] Dr. Jemma Kaur CAST NONE SEEN Normal NONE SEEN [facility] Comment on above: Performed By: #### C MREP #### [facility] [address] [place] [address] Dr. Jemma Kaur Crystals LM Nom (Urine sed) NONE SEEN Normal NONE SEEN [facility] Comment on above: Performed By: #### C MREP #### [facility] [address] [place] [address] Dr. Jemma Kaur Epithelial cells LM Ql (Urine sed) RARE Normal NONE SEEN /RARE [facility] Comment on above: Performed By: #### C MREP #### [facility] [address] [place] [address] Dr. Jemma Kaur MUCOUS NONE SEEN Normal NONE SEEN [facility] Comment on above: Performed By: #### C MREP #### [facility] [address] [place] [address] Dr. Jemma Kaur RBC NONE SEEN Abnormal 0-2 [facility] Comment on above: Performed By: #### C MREP #### [facility] [address] [place] [address] Dr. Jemma Kaur WBC 0-2 Abnormal NONE SEEN [facility] Comment on above: Performed By: #### C MREP #### [facility] [address] [place] [address] Dr. Jemma Kaur CARDIAC KEVYN 3-6on 2 CK [Catalytic activity/Vol] 44 U/L Normal 26-192 [facility] Comment on above: Performed By: #### C MREP #### [facility] [address] [place] [address] Dr. Jemma Kaur CK.MB [Mass/Vol] 0.88 ng/mL Normal <=3.60 [facility] Comment on above: Performed By: #### C MREP #### [facility] [address] [place] [address] Dr. Jemma Kaur HSTROP 84.5 pg/mL Critically high 4.0-51.3 [facility] Comment on above: Result Comment: CUT- OFF POINTS HAVE BEEN ESTABLISHED BASED ON THE FOURTH UNIVERSAL DEFINITIONS OF MYOCARDIAL INFARCTION. THE UPPER REFERENCE LIMIT (URL) OF TROPONIN, DEFINED THE 99TH PERCENTILE OF cTnI DISTRIBUTION IN A REFERENCE POPULATION, HAS BEEN CONFIRMED THE DECISION THRESHOLD FOR IN DIAGNOSIS. test repeated critical value verified Performed By: #### C MREP #### [facility] [address] [place] [address] Dr. Jemma Kaur CBC AUTO DIFFon 12-20-2021 BASO # 0.0 103/ul Normal 0.0-0.1 [facility] Comment on above: Performed By: #### C ZIYAD #### [facility] [address] [place] [address] Dr. Jemma Kaur Basophils/100 WBC (Bld) 0.7 % Normal 0.2-2.0 [facility] Comment on above: Performed By: #### C GERMANMAN #### [facility] [address] [place] [address] Dr. Jemma Kaur EO # 0.3 103/ul Normal 0.0-0.7 [facility] Comment on above: Performed By: #### C GERMANMAN #### [facility] [address] [place] [address] Dr. Jemma Kaur Eosinophils/100 WBC (Bld) 5.8 % Normal 0.9-7.0 [facility] Comment on above: Performed By: #### C ZIYAD #### [facility] [address] [place] [address] Dr. Jemma Kaur Erythrocyte distribution width (RBC) [Ratio] 12.2 % Normal 11.0-15.0 [facility] Comment on above: Performed By: #### C GERMANMAN #### [facility] [address] [place] [address] Dr. Jemma Kaur Hematocrit (Bld) [Volume fraction] 35.8 % Critically low 36.0-48.0 [facility] Comment on above: Performed By: #### C ZIYAD #### [facility] [address] [place] [address] Dr. Jemma Kaur Hemoglobin (Bld) [Mass/Vol] 12.0 g/dL Normal 12.0-16.0 [facility] Comment on above: Performed By: #### C ZIYAD #### [facility] [address] [place] [address] Dr. Jemma Kaur IG # 0.01 10e3/ul Normal 0.00-0.03 [facility] Comment on above: Performed By: #### C ZIYAD #### [facility] [address] [place] [address] Dr. Jemma Kaur IG % 0.2 % Normal 0.0-0.5 [facility] Comment on above: Performed By: #### C ZIYAD #### [facility] [address] [place] [address] Dr. Jemma Kaur LYMPH # 0.8 103/ul Critically low 1.2-3.8 [facility] Comment on above: Performed By: #### C ZIYAD #### [facility] [address] [place] [address] Dr. Jemma Kaur Lymphocytes/100 WBC (Bld) 12.9 % Critically low 20.5-60.0 [facility] Comment on above: Performed By: #### C ZIYAD #### [facility] [address] [place] [address] Dr. Jemma Kaur MANUAL DIFF REQ NO Normal [facility] Comment on above: Performed By: #### C ZIYAD #### [facility] [address] [place] [address] Dr. Jemma Kaur MCH (RBC) [Entitic mass] 32.1 pg Normal 26.7-34.0 [facility] Comment on above: Performed By: #### C ZIYAD #### [facility] [address] [place] [address] Dr. Jemma Kaur MCHC (RBC) [Mass/Vol] 33.5 g/dL Normal 29.9-35.2 [facility] Comment on above: Performed By: #### C ZIYAD #### [facility] [address] [address] [address] Jemma Kaur MCV (RBC) [Entitic vol] 95.7 fL Normal 81.0-99.0 [facility] Comment on above: Performed By: #### C ZIYAD #### [facility] [address] [place] [address] Dr. Jemma Kaur MONO # 0.7 103/ul Normal 0.3-0.8 [facility] Comment on above: Performed By: #### C ZIYAD #### [facility] [address] [place] [address] Dr. Jemma Kaur Monocytes/100 WBC (Bld) 12.1 % Critically high 1.7-12.0 [facility] Comment on above: Performed By: #### C ZIYAD #### [facility] [address] [place] [address] Dr. Jemma Kaur NEUT # 4.0 103/ul Normal 1.4-6.5 [facility] Comment on above: Performed By: #### C ZIYAD #### [facility] [address] [place] [address] Dr. Jemma Kaur Neutrophils/100 WBC (Bld) 68.3 % Normal 43.0-75.0 [facility] Comment on above: Performed By: #### C ZIYAD #### [facility] [address] [place] [address] Dr. Jemma Kaur Platelet mean volume (Bld) [Entitic vol] 10.3 fL Normal 9.5-13.5 [facility] Comment on above: Performed By: #### C ZIYAD #### [facility] [address] [place] [address] Dr. Jemma Kaur PLT 164 103/ul Normal 150-450 [facility] Comment on above: Performed By: #### C ZIYAD #### [facility] [address] [place] [address] Dr. Jemma Kaur RBC 3.74 106/ul Critically low 4.20-5.40 [facility] Comment on above: Performed By: #### C ZIYAD #### [facility] [address] [place], [place] [address] Dr. Jemma Kaur WBC 5.9 103/ul Normal 4.0-11.0 [facility] Comment on above: Performed By: #### Serena LACKEY #### [facility] [address] [place], [place] [address] Dr. Jemma Kaur CTA CHEST WO W [...] by: JANE ALFARO Date: 2021-12-20 12:59 Normal [facility] D-DIMERon 12-20-2021 D-DIMER 3.80 mg/L FEU Critically high <=0.59 [facility] Comment on above: Performed By: #### Jaida RIDLEY ####[facility] [address] [place], [place] [address]Dr. Jemma Kaur D-DIMER COMMENTS SEE BELOW Normal [facility] Comment on above: Result Comment: Incr [...] generalized hospitalization. Performed By: #### D DIM ####[facility] [address] [place], [place] [address]Rb. Jemma Kaur ECHOCARDIO M/2D COMPLETEon 0 12-20-2021 ECHOCARDIO M/2D COMPLETE Patient: KERI HERRON Exam Date: 12/20/2021 : 1940 Gender:F Ordering : DR JENNIFER SMITH . Admission #: [id number] Family : DR WALI FLORES D.O. Order #: [id number] CLICK HERE TO VIEW EXAM ECHOCARDIOGRAM REPORT [...] Parra M.D. on 12/20/2021 at 17:50 Normal [facility] LIPASEon 12-20-2021 Lipase [Catalytic activity/Vol] 56.0 U/L Critically low 73.0-393.0 [facility] Comment on above: Performed By: #### C ZIYAD #### [facility] [address] [address] [address] Jemma Kaur MAGNESIUMon 12-20-2021 Magnesium [Mass/Vol] 1.7 mg/dL Critically low 1.8-2.4 [facility] Comment on above: Performed By: #### M G ####[facility] [address] [address]Dr. Jemma Kaur POINT OF CARE GLUCOSEon Glucose [Mass/Vol] 84 mg/dL Normal 74-106 [facility] Comment on above: Performed By: #### C ZIYAD #### [facility] [address] [address] [address] Jemma Kaur PROF CHEM 8 (BAS METB)on Anion gap [Moles/Vol] 8.7 mmol/L Normal [facility] Comment on above: Performed By: #### C ZIYAD #### [facility] [address] [address] [address] Jemma Kaur Calcium [Mass/Vol] 8.0 mg/dL Critically low 8.5-10.1 [facility] e [facility] Comment on above: Performed By: #### C ZIYAD #### [facility] [address] [address] [address] Jemma Kaur Chloride [Moles/Vol] 104 mmol/L Normal 98-107 [facility] Comment on above: Performed By: #### C ZIYAD #### [facility] [address] [address] [address] Jemma Kaur CO2 [Moles/Vol] 29.3 mmol/L Normal 21.0-32.0 [facility] Comment on above: Performed By: #### C ZIYAD #### [facility] [address] [place] [address] Dr. Jemma Kaur Creatinine [Mass/Vol] 0.75 mg/dL Normal 0.55-1.02 [facility] Comment on above: Performed By: #### C ZIYAD #### [facility] [address] [place] [address] Dr. Jemma Kaur EGFR-AF VINCENTIAN >60 Normal >=60 [facility] Comment on above: Performed By: #### C ZIYAD #### [facility] [address] [place] [address] Dr. Jemma Kaur EGFR-NON AF VINCENTIAN >60 Normal >=60 [facility] Comment on above: Performed By: #### C ZIYAD #### [facility] [address] [address] [address] Jemma Kaur Glucose [Mass/Vol] 95 mg/dL Normal 74-106 [facility] Comment on above: Performed By: #### C ZIYAD #### [facility] [address] [address] [address] Jemma Kaur Potassium [Moles/Vol] 4.0 mmol/L Normal 3.5-5.1 [facility] Comment on above: Performed By: #### C ZIYAD #### [facility] [address] [address] [address] Jemma Kaur Sodium [Moles/Vol] 138 mmol/L Normal 136-145 [facility] Comment on above: Performed By: #### C BCMAN #### [facility] [address] [address] [address] Jemma Kaur Urea nitrogen [Mass/Vol] 6.0 mg/dL Critically low 7.0-18.0 [facility] Comment on above: Performed By: #### C BCMAN #### [facility] [address] [address] [address] Jemma Kaur Urea nitrogen/Creatinine [Mass ratio] 8.0 mg/mg Normal [facility] Comment on above: Performed By: #### C BCMAN #### [facility] [address] [place] [address] Dr. Jemma Kaur CBC AUTO DIFFon 12-19-2021 BASO # 0.0 103/ul Normal 0.0-0.1 [facility] Comment on above: Performed By: #### C BC ####[facility] [address] [place], [place] [address]Dr. Jemma Kaur Basophils/100 WBC (Bld) 0.3 % Normal 0.2-2.0 [facility] Comment on above: Performed By: #### C BC ####[facility] [address] [place], [place] [address]Dr. Jemma Kaur EO # 0.3 103/ul Normal 0.0-0.7 [facility] Comment on above: Performed By: #### C BC ####[facility] [address] [address]Dr. Jemma Kaur Eosinophils/100 WBC (Bld) 4.3 % Normal 0.9-7.0 [facility] Comment on above: Performed By: #### C BC ####[facility] [address] [address]DrKayla Kaur Erythrocyte distribution width (RBC) [Ratio] 12.3 % Normal 11.0-15.0 [facility] Comment on above: Performed By: #### C BC ####[facility] [address] [address]DrKayla Kaur Hematocrit (Bld) [Volume fraction] 33.9 % Critically low 36.0-48.0 [facility] Comment on above: Performed By: #### C BC ####[facility] [address] [address]DrKayla Jemma Vincent Hemoglobin (Bld) [Mass/Vol] 11.5 g/dL Critically low 12.0-16.0 [facility] Comment on above: Performed By: #### C BC ####[facility] [address] [place], [place] [address]DrKayla Kaur IG # 0.02 10e3/ul Normal 0.00-0.03 [facility] Comment on above: Performed By: #### C BC ####[facility] [address] [place], [place] [address]DrKayla Kaur IG % 0.3 % Normal 0.0-0.5 [facility] Comment on above: Performed By: #### C BC ####[facility] [address] [place], [place] [address]DrKayla Kaur LYMPH # 0.6 103/ul Critically low 1.2-3.8 [facility] Comment on above: Performed By: #### C BC ####[facility] [address] [place], [place] [address]DrKayla Yaracarmelo Kaur Lymphocytes/100 WBC (Bld) 9.7 % Critically low 20.5-60.0 [facility] Comment on above: Performed By: #### C BC ####[facility] [address] [place], [place] [address]DrKayla Kaur MANUAL DIFF REQ NO Normal [facility] Comment on above: Performed By: #### C BC ####[facility] [address] [place], [place] [address]DrKayla Kaur MCH (RBC) [Entitic mass] 32.1 pg Normal 26.7-34.0 [facility] Comment on above: Performed By: #### C BC ####[facility] [address] [place], [place] [address]DrKayla Kaur MCHC (RBC) [Mass/Vol] 33.9 g/dL Normal 29.9-35.2 [facility] Comment on above: Performed By: #### C BC ####[facility] [address] [place], [place] [address]DrKayla Kaur MCV (RBC) [Entitic vol] 94.7 fL Normal 81.0-99.0 [facility] Comment on above: Performed By: #### C BC ####[facility] [address] [place], [place] [address]DrKayla Kaur MONO # 0.5 103/ul Normal 0.3-0.8 [facility] Comment on above: Performed By: #### C BC ####[facility] [address] [place], [place] [address]DrKayla Kaur Monocytes/100 WBC (Bld) 8.5 % Normal 1.7-12.0 [facility] Comment on above: Performed By: #### C BC ####[facility] [address] [place], [place] [address]DrKayla Kaur NEUT # 4.6 103/ul Normal 1.4-6.5 [facility] Comment on above: Performed By: #### C BC ####[facility] [address] [place], [place] [address]DrKayla Kaur Neutrophils/100 WBC (Bld) 76.9 % Critically high 43.0-75.0 [facility] Comment on above: Performed By: #### C BC ####[facility] [address] [place], [place] [address]DrKayla Kaur Platelet mean volume (Bld) [Entitic vol] 10.8 fL Normal 9.5-13.5 [facility] Comment on above: Performed By: #### C BC ####[facility] [address] [place], [place] [address]DrKayla Kaur PLT 122 103/ul Critically low 150-450 [facility] Comment on above: Performed By: #### C BC ####[facility] [address] [place], [place] [address]DrKayla Kaur RBC 3.58 106/ul Critically low 4.20-5.40 [facility] Comment on above: Performed By: #### C BC ####[facility] [address] [place], [place] [address]SuDr. Jemma Kaur WBC 6.0 103/ul Normal 4.0-11.0 [facility] Comment on above: Performed By: #### C BC ####[facility] [address] [id number]. Jemma Kaur Consultation Noteon 12-20-19 22 Consultation Note [id number] 0CD:127 Normal [facility] LIPASEon 12-19-2021 Lipase [Catalytic activity/Vol] 83.0 U/L Normal 73.0-393.0 [facility] Comment on above: Performed By: #### L IPA, BMP #### [facility] [address] [place] [address] Dr. Jemma Kaur Operative Reporton 2 Operative Report [id number] 0CD:127 Normal [facility] PROF CHEM 8 (BAS METB)on Anion gap [Moles/Vol] 7.4 mmol/L Normal [facility] Comment on above: Performed By: #### L IPA, BMP #### [facility] [address] [address] [address] Jemma Kaur Calcium [Mass/Vol] 8.1 mg/dL Critically low 8.5-10.1 Th [facility] Comment on above: Performed By: #### L IPA, BMP #### [facility] [address] [address] [address] Jemma Kaur Chloride [Moles/Vol] 109 mmol/L Critically high 98-107 [facility] Comment on above: Performed By: #### L IPA, BMP #### [facility] [address] [address] [address] Jemma Kaur CO2 [Moles/Vol] 29.0 mmol/L Normal 21.0-32.0 [facility] Comment on above: Performed By: #### L IPA, BMP #### [facility] [address] [address] [address] Jemma Kaur Creatinine [Mass/Vol] 0.66 mg/dL Normal 0.55-1.02 [facility] Comment on above: Performed By: #### L IPA, BMP #### [facility] [address] [address] [address] Jemma Kaur EGFR-AF VINCENTIAN >60 Normal >=60 [facility] Comment on above: Performed By: #### L IPA, BMP #### [facility] [address] [address] [address] Jemma Kaur EGFR-NON AF VINCENTIAN >60 Normal >=60 [facility] Comment on above: Performed By: #### L IPA, BMP #### [facility] [address] [address] [address] Jemma Kaur Glucose [Mass/Vol] 133 mg/dL Critically high 74-106 [facility] Comment on above: Performed By: #### L IPA, BMP #### [facility] [address] [address] [address] Jemma Kaur Potassium [Moles/Vol] 3.4 mmol/L Critically low 3.5-5.1 [facility] Comment on above: Performed By: #### L IPA, BMP #### [facility] [address] [address] [address] Jemma Kaur Sodium [Moles/Vol] 142 mmol/L Normal 136-145 [facility] Comment on above: Performed By: #### L IPA, BMP #### [facility] [address] [address] [address] Jemma Kaur Urea nitrogen [Mass/Vol] 6.0 mg/dL Critically low 7.0-18.0 [facility] Comment on above: Performed By: #### L IPA, BMP #### [facility] [address] [address] [address] Jemma Kaur Urea nitrogen/Creatinine [Mass ratio] 9.1 mg/mg Normal [facility] Comment on above: Performed By: #### L IPA, BMP #### [facility] [address] [address] [address] Jemma Kaur CBC AUTO DIFFon 12-18-2021 BASO # 0.0 103/ul Normal 0.0-0.1 [facility] Comment on above: Performed By: #### C BC ####[facility] [address] [address]DrKayla Kaur Basophils/100 WBC (Bld) 0.3 % Normal 0.2-2.0 [facility] Comment on above: Performed By: #### C BC ####[facility] [address] [address]Dr. Jemma Kaur EO # 0.1 103/ul Normal 0.0-0.7 [facility] Comment on above: Performed By: #### C BC ####[facility] [address] [address]Dr. Jemma Kaur Eosinophils/100 WBC (Bld) 1.4 % Normal 0.9-7.0 [facility] Comment on above: Performed By: #### C BC ####[facility] W[address] [place], [place] [address]Dr. Jemma Kaur Erythrocyte distribution width (RBC) [Ratio] 12.6 % Normal 11.0-15.0 [facility] Comment on above: Performed By: #### C BC ####[facility] [address] [place], [place] [address]Dr. Jemma Kaur Hematocrit (Bld) [Volume fraction] 35.1 % Critically low 36.0-48.0 [facility] Comment on above: Performed By: #### C BC ####[facility] [address] [place], [place] [address]DrKayla Kaur Hemoglobin (Bld) [Mass/Vol] 11.6 g/dL Critically low 12.0-16.0 [facility] Comment on above: Performed By: #### C BC ####[facility] C[address] [place], [place] [address]Dr. Jemma Kaur IG # 0.02 10e3/ul Normal 0.00-0.03 [facility] Comment on above: Performed By: #### C BC ####[facility] [address] [address]DrKayla Jemma Kaur IG % 0.3 % Normal 0.0-0.5 [facility] Comment on above: Performed By: #### C BC ####[facility] [address] [address]DrKayla Livingstoncarmelo Vincent LYMPH # 0.6 103/ul Critically low 1.2-3.8 [facility] Comment on above: Performed By: #### C BC ####[facility] [address]ir[address] [place], [place] [address]DrKayla Jemma Vincent Lymphocytes/100 WBC (Bld) 7.7 % Critically low 20.5-60.0 [facility] Comment on above: Result Comment: same as 12/17 Performed By: #### C BC ####[facility] [address] [place], [place] [address]DrKayla Jemma Vincent MANUAL DIFF REQ NO Normal [facility] Comment on above: Performed By: #### C BC ####[facility] [address] [place], [place] [address]DrKayla Jemma Vincent MCH (RBC) [Entitic mass] 31.9 pg Normal 26.7-34.0 [facility] Comment on above: Performed By: #### C BC ####[facility] [address] [place], [place] [address]DrKayla Jemma Vincent MCHC (RBC) [Mass/Vol] 33.0 g/dL Normal 29.9-35.2 [facility] Comment on above: Performed By: #### C BC ####[facility] [address] [place], [place] [address]DrKayla Kaur MCV (RBC) [Entitic vol] 96.4 fL Normal 81.0-99.0 [facility] Comment on above: Performed By: #### C BC ####[facility] [address] [place], [place] [address]DrKayla Kaur MONO # 0.6 103/ul Normal 0.3-0.8 [facility] Comment on above: Performed By: #### C BC ####[facility] [address] [id number]. Jemma Kaur Monocytes/100 WBC (Bld) 7.1 % Normal 1.7-12.0 [facility] Comment on above: Performed By: #### C BC ####[facility] [address] [address]Dr. Jemma Kaur NEUT # 6.5 103/ul Normal 1.4-6.5 [facility] Comment on above: Performed By: #### C BC ####[facility] [address] [address]Dr. Jemma Kaur Neutrophils/100 WBC (Bld) 83.2 % Critically high 43.0-75.0 [facility] Comment on above: Performed By: #### C BC ####[facility] [address] [address]Dr. Jemma Kaur Platelet mean volume (Bld) [Entitic vol] 11.4 fL Normal 9.5-13.5 [facility] Comment on above: Performed By: #### C BC ####[facility] [address] [address]Dr. Jemma Kaur PLT 106 103/ul Critically low 150-450 [facility] Comment on above: Performed By: #### C BC ####[facility] [address] [id number]. Jemma Kaur RBC 3.64 106/ul Critically low 4.20-5.40 [facility] Comment on above: Performed By: #### C BC ####[facility] Z[address] [place], [place] [id number]. Jemma Kaur WBC 7.8 103/ul Normal 4.0-11.0 [facility] Comment on above: Performed By: #### C BC ####[facility] [address] [address]Dr. Jemma Kaur LIPASEon 12-18-2021 Lipase [Catalytic activity/Vol] 60.0 U/L Critically low 73.0-393.0 [facility] Comment on above: Performed By: #### L IPA, BMP #### [facility] [address] [address] [address] Jemma Kaur POINT OF CARE GLUCOSEon 08- Glucose [Mass/Vol] 103 mg/dL Normal 74-106 [facility] Comment on above: Performed By: #### P OCGLUC ####[facility] [address] [place], [place] [address]RpDr. Jemma Kaur PROF CHEM 8 (BAS METB)on Anion gap [Moles/Vol] 8.7 mmol/L Normal [facility] Comment on above: Performed By: #### L IPA, BMP #### [facility] [address] [address] [address] Jemma Kaur Calcium [Mass/Vol] 7.7 mg/dL Critically low 8.5-10.1 [facility] Comment on above: Performed By: #### L IPA, BMP #### [facility] [address] [address] [address] Jemma Kaur Chloride [Moles/Vol] 106 mmol/L Normal 98-107 [facility] Comment on above: Performed By: #### L IPA, BMP #### [facility] [address] [address] [address] Jemma Kaur CO2 [Moles/Vol] 28.0 mmol/L Normal 21.0-32.0 [facility] Comment on above: Performed By: #### L IPA, BMP #### [facility] [address] [address] [address] Jemma Kaur Creatinine [Mass/Vol] 0.69 mg/dL Normal 0.55-1.02 [facility] Comment on above: Performed By: #### L IPA, BMP #### [facility] [address] [address] [address] Jemma Kaur EGFR-AF VINCENTIAN >60 Normal >=60 [facility] Comment on above: Performed By: #### L IPA, BMP #### [facility] [address] [address] [address] Jemma Kaur EGFR-NON AF VINCENTIAN >60 Normal >=60 [facility] Comment on above: Performed By: #### L IPA, BMP #### [facility] [address] [address] [address] Jemma Kaur Glucose [Mass/Vol] 135 mg/dL Critically high 74-106 [facility] Comment on above: Performed By: #### L IPA, BMP #### [facility] [address] [address] [address] Jmema Kaur Potassium [Moles/Vol] 3.7 mmol/L Normal 3.5-5.1 [facility] Comment on above: Performed By: #### L IPA, BMP #### [facility] [address] [address] [address] Jemma Kaur Sodium [Moles/Vol] 139 mmol/L Normal 136-145 [facility] Comment on above: Performed By: #### L IPA, BMP #### [facility] [address] [address] [address] Jemma Kaur Urea nitrogen [Mass/Vol] 13.0 mg/dL Normal 7.0-18.0 [facility] Comment on above: Performed By: #### L IPA, BMP #### [facility] [address] [address] [address] Jemma Kaur Urea nitrogen/Creatinine [Mass ratio] 18.8 mg/mg Normal [facility] Comment on above: Performed By: #### L IPA, BMP #### [facility] [address] [address] [address] Jemma Kaur CBC W MANUAL DIFFon 12-17- 22 ATYPICAL LYMPH # Normal [facility] Comment on above: Performed By: #### C ZIYAD #### [facility] [address] [place] [address] Dr. Jemma Kaur ATYPICAL LYMPH % Normal [facility] Comment on above: Performed By: #### C ZIYAD #### [facility] [address] [address] [address] Jemma Kaur BAND # 0.3 103/ul Normal 0.0-0.3 [facility] Comment on above: Performed By: #### C BCMAN #### [facility] [address] [place] [address] Dr. Jemma Kaur BAND % 2 % Normal 0-5 [facility] Comment on above: Performed By: #### C BCVANESA #### [facility] [address] [place] [address] Dr. Jemma Kaur BASOM # 0.00 103/ul Normal 0.00-0.10 [facility] Comment on above: Performed By: #### C ZIYAD #### [facility] [address] [place] [address] Dr. Jemma Kaur BASOM % 0.0 % Critically low 0.2-2.0 [facility] Comment on above: Performed By: #### C ZIYAD #### [facility] [address] [place] [address] Dr. Jemma Kaur BLAST # Normal [facility] Comment on above: Performed By: #### C ZIYAD #### [facility] [address] [place] [address] Dr. Jemma Kaur BLAST % Normal [facility] Comment on above: Performed By: #### C ZIYAD #### [facility] [address] [place] [address] Dr. Jemma Kaur CORRECTED WBC Normal 4.0-11.0 [facility] Comment on above: Performed By: #### C BCVANESA #### [facility] [address] [place] [address] Dr. Jemma Kaur EOS # 0.00 103/ul Normal 0.00-0.70 [facility] Comment on above: Performed By: #### C BCVANESA #### [facility] [address] [place] [address] Dr. Jemma Kaur EOS% 0.0 % Critically low 0.9-7.0 [facility] Comment on above: Performed By: #### C ZIYAD #### [facility] [address] [address] [address] Jemma Kaur HCT 37.0 % Normal 36.0-48.0 [facility] Comment on above: Performed By: #### C ZIYAD #### [facility] [address] [place] [address] Dr. Jemma Kaur HGB 12.3 g/dl Normal 12.0-16.0 [facility] Comment on above: Performed By: #### C ZIYAD #### [facility] [address] [place] [address] Dr. Jemma Kaur LYMPHM # 0.40 103/ul Critically low 1.20-3.80 [facility] Comment on above: Performed By: #### C ZIYAD #### [facility] [address] [place] [address] Dr. Jemma Kaur LYMPHM% 3.0 % Critically low 20.5-60.0 [facility] Comment on above: Performed By: #### Serena LACKEY #### [facility] [address] [place] [address] Dr. Jemma Kaur MCH 31.7 pg Normal 26.7-34.0 [facility] Comment on above: Performed By: #### C ZIYAD #### [facility] [address] [place] [address] Dr. Jemma Kaur MCHC 33.2 g/dl Normal 29.9-35.2 [facility] Comment on above: Performed By: #### Serena LACKEY #### [facility] [address] [place] [address] Dr. Jemma Kaur MCV 95.4 fL Normal 81.0-99.0 [facility] Comment on above: Performed By: #### C ZIYAD #### [facility] [address] [place] [address] Dr. Jemma Kaur METAMYELOCYTE # Normal [facility] Comment on above: Performed By: #### C ZIYAD #### [facility] [address] [place] [address] Dr. Jemma Kaur METAMYELOCYTE % Normal [facility] Comment on above: Performed By: #### C ZIYAD #### [facility] [address] [address] [address] Jemma Kaur MONOM# 0.53 103/ul Normal 0.30-0.80 [facility] Comment on above: Performed By: #### C ZIYAD #### [facility] [address] [address] [address] Jemma Kaur MONOM% 4.0 % Normal 1.7-12.0 [facility] Comment on above: Performed By: #### C ZIYAD #### [facility] [address] [address] [address] Jemma Kaur MPV 11.2 fL Normal 9.5-13.5 [facility] Comment on above: Performed By: #### C ZIYAD #### [facility] [address] [place] [address] Dr. Jemma Kaur MYELOCYTE # Normal [facility] Comment on above: Performed By: #### Serena LACKEY #### [facility] [address] [address] [address] Jemma Kaur MYELOCYTE % Normal [facility] Comment on above: Performed By: #### C ZIYAD #### [facility] [address] [place] [address] Dr. Jemma Kaur NRBC Normal [facility] Comment on above: Performed By: #### C ZIYAD #### [facility] [address] [address] [address] Jemma Kaur PLT 106 103/ul Critically low 150-450 [facility] Comment on above: Performed By: #### C ZIYAD #### [facility] [address] [address] [address] Jemma Kaur RBC 3.88 106/ul Critically low 4.20-5.40 [facility] Comment on above: Performed By: #### C ZIYAD #### [facility] [address] [address] [address] Jemma Kaur RDW 12.6 % Normal 11.0-15.0 [facility] Comment on above: Performed By: #### C ZIYAD #### [facility] [address] [address] [address] Jemma Kaur SEG # 12.01 103/ul Critically high 1.40-6.50 [facility] Comment on above: Performed By: #### C GERMANMAN #### [facility] [address] [address] [address] Jemma Kaur SEG % 91.0 % Critically high 43.0-75.0 [facility] Comment on above: Performed By: #### C ZIYAD #### [facility] [address] [address] [address] Jemma Kaur WBC 13.2 103/ul Critically high 4.0-11.0 [facility] Comment on above: Performed By: #### C ZIYAD #### [facility] [address] [address] [address] Jemma Kaur LIPASEon 12-17-2021 Lipase [Catalytic activity/Vol] 43.0 U/L Critically low 73.0-393.0 [facility] Comment on above: Performed By: #### B MP, LIPA ####[facility] [address] [address]Dr. Jemma Kaur POINT OF CARE GLUCOSEon 11-20 Glucose [Mass/Vol] 126 mg/dL Critically high 74-106 [facility] Comment on above: Performed By: #### L IPA, BMP #### [facility] [address] [address] [address] Jemma Kaur Glucose [Mass/Vol] 158 mg/dL Critically high 74-106 [facility] Comment on above: Performed By: #### P OCGLUC #### [facility] [address] [address] [address] Jemma Kaur PROF CHEM 8 (BAS METB)on Anion gap [Moles/Vol] 12.0 mmol/L Normal [facility] Comment on above: Performed By: #### B MP, LIPA ####[facility] [address] [address]Dr. Jemma Kaur Calcium [Mass/Vol] 7.5 mg/dL Critically low 8.5-10.1 [facility] e [facility] Comment on above: Performed By: #### B VITOR, LIPA ####[facility] [address] [address]Dr. Jemma Kaur Chloride [Moles/Vol] 105 mmol/L Normal 98-107 [facility] Comment on above: Performed By: #### B VITOR, LIPA ####[facility] [address] [address]Dr. Jemma Kaur CO2 [Moles/Vol] 26.8 mmol/L Normal 21.0-32.0 [facility] Comment on above: Performed By: #### B VITOR, LIPA ####[facility] [address] [place], [place] [address]Dr. Yaracarmelo Kaur Creatinine [Mass/Vol] 0.84 mg/dL Normal 0.55-1.02 [facility] Comment on above: Performed By: #### Chichi ADLER, LIPA ####[facility] [address] [place], [place] [address]Dr. Jemma Vincent EGFR-AF VINCENTIAN >60 Normal >=60 [facility] Comment on above: Performed By: #### B VITOR, LIPA ####[facility] [address] [place], [place] [address]Dr. Jemma Kaur EGFR-NON AF VINCENTIAN >60 Normal >=60 [facility] Comment on above: Performed By: #### B VITOR, LIPA ####[facility] [address] [place], [place] [address]Dr. Jemma Kaur Glucose [Mass/Vol] 210 mg/dL Critically high 74-106 T [facility] Comment on above: Performed By: #### B VITOR, LIPA ####[facility] [address] [place], [place] [address]Dr. Yaracarmelo Kaur Potassium [Moles/Vol] 3.8 mmol/L Normal 3.5-5.1 [facility] Comment on above: Performed By: #### B VITOR, LIPA ####[facility] [address] [place], [place] [address]DrKayla Kaur Sodium [Moles/Vol] 140 mmol/L Normal 136-145 [facility] Comment on above: Performed By: #### B VITOR, LIPA ####[facility] [address] [address]DrKayla Kaur Urea nitrogen [Mass/Vol] 14.0 mg/dL Normal 7.0-18.0 [facility] Comment on above: Performed By: #### B VITOR, LIPA ####[facility] [address] [address]Dr. Jemma Kaur Urea nitrogen/Creatinine [Mass ratio] 16.7 mg/mg Normal [facility] Comment on above: Performed By: #### B VITOR LIPA ####[facility] [address] [address]DrKayla Kaur AMYLASEon 12-16-2021 Amylase [Catalytic activity/Vol] 95 U/L Normal 25-115 [facility] Comment on above: Performed By: #### C MREP #### [facility] [address] [place] [address] Dr. Jemma Kaur CBC AUTO DIFFon 12-16-2021 BASO # 0.0 103/ul Normal 0.0-0.1 [facility] Comment on above: Performed By: #### L IPA, BMP #### [facility] [address] [place] [address] Dr. Jemma Kaur Basophils/100 WBC (Bld) 0.2 % Normal 0.2-2.0 [facility] Comment on above: Performed By: #### L IPA, BMP #### [facility] [address] [place] [address] Dr. Jemma Kaur EO # 0.0 103/ul Normal 0.0-0.7 [facility] Comment on above: Performed By: #### L IPA, BMP #### [facility] [address] [place] [address] Dr. Jemma Kaur Eosinophils/100 WBC (Bld) 0.0 % Critically low 0.9-7.0 [facility] Comment on above: Performed By: #### L IPA, BMP #### [facility] [address] [address] [address] Jemma Kaur Erythrocyte distribution width (RBC) [Ratio] 12.2 % Normal 11.0-15.0 [facility] Comment on above: Performed By: #### L IPA, BMP #### [facility] [address] [place] [address] Dr. Jemma Kaur Hematocrit (Bld) [Volume fraction] 41.8 % Normal 36.0-48.0 [facility] Comment on above: Performed By: #### L IPA, BMP #### [facility] [address] [place] [address] Dr. Jemma Kaur Hemoglobin (Bld) [Mass/Vol] 14.1 g/dL Normal 12.0-16.0 [facility] Comment on above: Performed By: #### L IPA, BMP #### [facility] [address] [place] [address] Dr. Jemma Kaur IG # 0.03 10e3/ul Normal 0.00-0.03 [facility] Comment on above: Performed By: #### L IPA, BMP #### [facility] [address] [place] [address] Dr. Jemma Kaur IG % 0.3 % Normal 0.0-0.5 [facility] Comment on above: Performed By: #### L IPA, BMP #### [facility] [address] [place] [address] Dr. Jemma Kaur LYMPH # 0.3 103/ul Critically low 1.2-3.8 [facility] Comment on above: Performed By: #### L IPA, BMP #### [facility] [address] [place] [address] Dr. Jemma Kaur Lymphocytes/100 WBC (Bld) 3.5 % Critically low 20.5-60.0 [facility] Comment on above: Performed By: #### L IPA, BMP #### [facility] [address] [place] [address] Dr. Jemma Kaur MANUAL DIFF REQ NO Normal [facility] Comment on above: Performed By: #### L IPA, BMP #### [facility] [address] [address] [address] Jemma Kaur MCH (RBC) [Entitic mass] 32.0 pg Normal 26.7-34.0 [facility] Comment on above: Performed By: #### L IPA, BMP #### [facility] [address] [place] [address] Dr. Jemma Kaur MCHC (RBC) [Mass/Vol] 33.7 g/dL Normal 29.9-35.2 [facility] Comment on above: Performed By: #### L IPA, BMP #### [facility] [address] [place] [address] Dr. Jemma Kaur MCV (RBC) [Entitic vol] 94.8 fL Normal 81.0-99.0 [facility] Comment on above: Performed By: #### L IPA, BMP #### [facility] [address] [place] [address] Dr. Jemma Kaur MONO # 0.4 103/ul Normal 0.3-0.8 [facility] Comment on above: Performed By: #### L IPA, BMP #### [facility] [address] [address] [address] Jemma Kaur Monocytes/100 WBC (Bld) 4.6 % Normal 1.7-12.0 [facility] Comment on above: Performed By: #### L IPA, BMP #### [facility] [address] [address] [address] Jemma Kaur NEUT # 8.5 103/ul Critically high 1.4-6.5 [facility] Comment on above: Performed By: #### L IPA, BMP #### [facility] [address] [address] [address] Jemma Karu Neutrophils/100 WBC (Bld) 91.4 % Critically high 43.0-75.0 [facility] Comment on above: Performed By: #### L IPA, BMP #### [facility] [address] [place] [address] Dr. Jemma Kaur Platelet mean volume (Bld) [Entitic vol] 10.9 fL Normal 9.5-13.5 [facility] Comment on above: Performed By: #### L IPA, BMP #### [facility] [address] [place] [address] Dr. Jemma Kaur PLT 125 103/ul Critically low 150-450 [facility] Comment on above: Performed By: #### L IPA, BMP #### [facility] [address] [place] [address] Dr. Jemma Kaur RBC 4.41 106/ul Normal 4.20-5.40 [facility] Comment on above: Performed By: #### L IPA, BMP #### [facility] [address] [place] [address] Dr. Jemma Kaur WBC 9.3 103/ul Normal 4.0-11.0 [facility] Comment on above: Performed By: #### L IPA, BMP #### [facility] [address] [place] [address] Dr. Jemma Kaur BASO # 0.0 103/ul Normal 0.0-0.1 [facility] Comment on above: Performed By: #### C BC #### [facility] [address] [place] [address] Dr. Jemma Kaur Basophils/100 WBC (Bld) 0.4 % Normal 0.2-2.0 [facility] Comment on above: Performed By: #### C BC #### [facility] [address] [place] [address] Dr. Jemma Kaur EO # 0.0 103/ul Normal 0.0-0.7 [facility] Comment on above: Performed By: #### C BC #### [facility] [address] [place] [address] Dr. Jemma Kaur Eosinophils/100 WBC (Bld) 0.1 % Critically low 0.9-7.0 [facility] Comment on above: Performed By: #### C BC #### [facility] [address] [place] [address] Dr. Jemma Kaur Erythrocyte distribution width (RBC) [Ratio] 12.3 % Normal 11.0-15.0 [facility] Comment on above: Performed By: #### C BC #### [facility] [address] [address] [address] Jemma Kaur Hematocrit (Bld) [Volume fraction] 43.7 % Normal 36.0-48.0 [facility] Comment on above: Performed By: #### C BC #### [facility] [address] [address] [address] Jemma Kaur Hemoglobin (Bld) [Mass/Vol] 14.4 g/dL Normal 12.0-16.0 [facility] Comment on above: Performed By: #### C BC #### [facility] [address] [address] [address] Jemma Kaur IG # 0.04 10e3/ul Critically high 0.00-0.03 [facility] Comment on above: Performed By: #### C BC #### [facility] [address] [address] [address] Jemma Kaur IG % 0.4 % Normal 0.0-0.5 [facility] Comment on above: Performed By: #### C BC #### [facility] [address] [address] [address] Jemma Kaur LYMPH # 0.5 103/ul Critically low 1.2-3.8 [facility] Comment on above: Performed By: #### C BC #### [facility] [address] [address] [address] Jemma Kaur Lymphocytes/100 WBC (Bld) 4.5 % Critically low 20.5-60.0 [facility] Comment on above: Performed By: #### C BC #### [facility] [address] [address] [address] Jemma Kaur MANUAL DIFF REQ NO Normal [facility] Comment on above: Performed By: #### C BC #### [facility] [address] [address] [address] Jemma Kaur MCH (RBC) [Entitic mass] 31.5 pg Normal 26.7-34.0 [facility] Comment on above: Performed By: #### C BC #### [facility] [address] [address] [address] Jemma Kaur MCHC (RBC) [Mass/Vol] 33.0 g/dL Normal 29.9-35.2 [facility] Comment on above: Performed By: #### C BC #### [facility] [address] [address] [address] Jemma Kaur MCV (RBC) [Entitic vol] 95.6 fL Normal 81.0-99.0 [facility] Comment on above: Performed By: #### C BC #### [facility] [address] [address] [address] Jemma Kaur MONO # 0.6 103/ul Normal 0.3-0.8 [facility] Comment on above: Performed By: #### C BC #### [facility] [address] [place] [address] Dr. Jemma Kaur Monocytes/100 WBC (Bld) 5.9 % Normal 1.7-12.0 [facility] Comment on above: Performed By: #### C BC #### [facility] [address] [address] [address] Jemma Kaur NEUT # 9.4 103/ul Critically high 1.4-6.5 [facility] Comment on above: Performed By: #### C BC #### [facility] [address] [place] [address] Dr. Jemma Kaur Neutrophils/100 WBC (Bld) 88.7 % Critically high 43.0-75.0 [facility] Comment on above: Performed By: #### C BC #### [facility] [address] [address] [address] Jemma Kaur Platelet mean volume (Bld) [Entitic vol] 10.5 fL Normal 9.5-13.5 [facility] Comment on above: Performed By: #### C BC #### [facility] [address] [address] [address] Jemma Kaur PLT 143 103/ul Critically low 150-450 [facility] Comment on above: Performed By: #### C BC #### [facility] [address] [place], [place] [address] Dr. Jemma Kaur RBC 4.57 106/ul Normal 4.20-5.40 [facility] Comment on above: Performed By: #### C BC #### [facility] [address] [place], [place] [address] Dr. Jemma Kaur WBC 10.6 103/ul Normal 4.0-11.0 [facility] Comment on above: Performed By: #### C BC #### [facility] [address] [place], [place] [address] ABD/PELVIS WO CONon 12-16 CT ABD/PELVIS WO CON EXAMINATION: CT ABD/PELVIS WO CON HISTORY: GENERALIZED ABDOMINAL PAIN , [...] ROHAN HERRON Date: 2021-12-16 02:15 Normal [facility] CULTURE URINEon 12-16-2021 CULTURE URINE Culture Observations : LIGHT GROWTH OF MIXED GENITAL PEDRO. NO POTENTIAL PATHOGENS SEEN. Normal [facility] Comment on above: Performed By: #### C MREP #### [facility] [address] [address] [address] Jemma Kaur Covid-19 PCR ([facility])on 11-19 SARS-CoV-2 (COVID-19) RNA LAURO+probe Ql (Unsp spec) Not detected Normal NOT DETECTED [facility] Comment on above: Result Comment: When diagnostic [...] for this test is supported by the [employer] of [employer] and Human Service's declaration that [...] longer be used). Performed By: #### C VDTBH #### [facility] [address] [place] [address] [id number] [address] Jemma Kaur ER URINE PROFILEon 2 Bilirubin Ql (U) Negative Normal NEGATIVE [facility] Comment on above: Performed By: #### C BCMAN #### [facility] [address] [place] [address] Dr. Jemma Kaur Clarity (U) CLEAR Normal CLEAR [facility] Comment on above: Performed By: #### C BCVANESA #### [facility] [address] [place] [address] Dr. Jemma Kaur Color (U) LT. YELLOW Normal YELLOW [facility] Comment on above: Performed By: #### C ZIYAD #### [facility] [address] [place] [address] Dr. Jemma Kaur ERUAHD A micrscopic examination will be performed if indicated. Normal [facility] Comment on above: Performed By: #### C ZIYAD #### [facility] [address] [place] [address] Dr. Jemma Kaur Glucose Ql (U) Negative Normal NEGATIVE [facility] Comment on above: Performed By: #### C ZIYAD #### [facility] [address] [place] [address] Dr. Jemma Kaur Hemoglobin Ql (U) TRACE-LYSED Abnormal NEGATIVE [facility] Comment on above: Performed By: #### C ZIYAD #### [facility] [address] [place] [address] Dr. Jemma Kaur Ketones Ql (U) 15 mg/dl Abnormal NEGATIVE [facility] Comment on above: Performed By: #### C ZIYAD #### [facility] [address] [place] [address] Dr. Jemma Kaur LEUKOCYTES MODERATE Abnormal NEGATIVE [facility] Comment on above: Performed By: #### C ZIYAD #### [facility] [address] [place] [address] Dr. Jemma Kaur Nitrite Ql (U) Negative Normal NEGATIVE [facility] Comment on above: Performed By: #### C ZIYAD #### [facility] [address] [place] [address] Dr. Jemma Kaur pH (U) 7.0 [pH] Normal 5-9 [facility] Comment on above: Performed By: #### C ZIYAD #### [facility] [address] [place] [address] Dr. Jemma Kaur SPEC GRAVITY 1.015 Normal 1.005-<=1.025 [facility] Comment on above: Performed By: #### C ZIYAD #### [facility] [address] [place] [address] Dr. Jemma Kaur UA PROTEIN Negative Normal NEGATIVE/ TRACE [facility] Comment on above: Performed By: #### C ZIYAD #### [facility] [address] [place] [address] Dr. Jemma Kaur UR MICRO IND INDICATED Normal [facility] Comment on above: Performed By: #### C ZIYAD #### [facility] [address] [place] [address] Dr. Jemma Kaur Urobilinogen Qn (U) 0.2 {Rober'U}/dL Normal 0.2 - 1. 0 [facility] Comment on above: Performed By: #### C ZIYAD #### [facility] [address] [place] [address] Dr. Jemma Kaur LIPASEon 12-16-2021 Lipase [Catalytic activity/Vol] 518.0 U/L Critically high 73.0-393.0 [facility] Comment on above: Performed By: #### C HAYLEE ADLER, LIPA #### [facility] [address] [place] [address] Dr. Jemma Kaur PROF 14(COMP METB)on 022 Albumin [Mass/Vol] 3.7 g/dL Normal 3.4-5.0 [facility] Comment on above: Performed By: #### C MP ####[facility] [address] [address]Dr. Jemma Kaur Albumin/Globulin [Mass ratio] 1.1 {ratio} Normal [facility] Comment on above: Performed By: #### C MP ####[facility] [address] [address]Dr. Jemma Kaur ALP [Catalytic activity/Vol] 55 U/L Normal 46-116 [facility] Comment on above: Performed By: #### C MP ####[facility] [address] [address]Dr. Jemma Kaur ALT [Catalytic activity/Vol] 28 U/L Normal 14-59 [facility] Comment on above: Performed By: #### C MP ####[facility] [address] [address]Dr. Jemma Kaur Anion gap [Moles/Vol] 9.7 mmol/L Normal [facility] Comment on above: Performed By: #### C MP ####[facility] [address] [place], [place] [address]Dr. Jemma Kaur AST [Catalytic activity/Vol] 23 U/L Normal 15-37 [facility] Comment on above: Performed By: #### C MP ####[facility] [address] [place], [place] [address]Dr. Jemma Kaur Bilirubin [Mass/Vol] 1.2 mg/dL Critically high 0.2-1.0 [facility] Comment on above: Performed By: #### C MP ####[facility] [address] [place], [place] [address]Dr. Jemma Kaur Calcium [Mass/Vol] 8.7 mg/dL Normal 8.5-10.1 [facility] Comment on above: Performed By: #### C MP ####[facility] [address] [place], [place] [address]Dr. Jemma Kaur Chloride [Moles/Vol] 101 mmol/L Normal 98-107 [facility] Comment on above: Performed By: #### C MP ####[facility] [address] [place], [place] [address]Dr. Jemma Kaur CO2 [Moles/Vol] 32.4 mmol/L Critically high 21.0-32.0 [facility] Comment on above: Performed By: #### C MP ####[facility] [address] [place], [place] [address]Dr. Jemma Kaur Creatinine [Mass/Vol] 0.81 mg/dL Normal 0.55-1.02 [facility] Comment on above: Performed By: #### C MP ####[facility] [address] [place], [place] [address]Dr. Jemma Kaur EGFR-AF VINCENTIAN >60 Normal >=60 [facility] Comment on above: Performed By: #### C MP ####[facility] [address] [id number]. Jemma Kaur EGFR-NON AF VINCENTIAN >60 Normal >=60 [facility] Comment on above: Performed By: #### C MP ####[facility] [address] [address]Dr. Jemma Vincent Globulin (S) [Mass/Vol] 3.4 g/dL Normal [facility] Comment on above: Performed By: #### C MP ####[facility] [address] [address]Dr. Jemma Vincent Glucose [Mass/Vol] 137 mg/dL Critically high 74-106 [facility] Comment on above: Performed By: #### C MP ####[facility] [address] [address]Dr. Jemma Vincent Potassium [Moles/Vol] 4.1 mmol/L Normal 3.5-5.1 [facility] Comment on above: Performed By: #### C MP ####[facility] [address] [place], [place] [address]Dr. Jemma Vincent Protein [Mass/Vol] 7.1 g/dL Normal 6.4-8.2 [facility] Comment on above: Performed By: #### C MP ####[facility] [address] [place], [place] [address]Dr. Jemma Vincent Sodium [Moles/Vol] 139 mmol/L Normal 136-145 [facility] Comment on above: Performed By: #### C MP ####[facility] [address] [place], [place] [address]Dr. Jemma Vincent Urea nitrogen [Mass/Vol] 14.0 mg/dL Normal 7.0-18.0 [facility] Comment on above: Performed By: #### C MP ####[facility] [address] [place], [place] [address]Dr. Yaracarmelo Vincent Urea nitrogen/Creatinine [Mass ratio] 17.3 mg/mg Normal [facility] Comment on above: Performed By: #### C MP ####[facility] [address] [place], [place] [address]Dr. Jemma Kaur Albumin [Mass/Vol] 3.9 g/dL Normal 3.4-5.0 [facility] Comment on above: Performed By: #### C MREP #### [facility] [address] [address] [address] Jemma Kaur Albumin/Globulin [Mass ratio] 1.1 {ratio} Normal [facility] Comment on above: Performed By: #### C MREP #### [facility] [address] [address] [address] Jemma Kaur ALP [Catalytic activity/Vol] 59 U/L Normal 46-116 [facility] Comment on above: Performed By: #### C MREP #### [facility] [address] [address] [address] Jemma Kaur ALT [Catalytic activity/Vol] 27 U/L Normal 14-59 [facility] Comment on above: Performed By: #### C MREP #### [facility] [address] [address] [address] Jemma Kaur Anion gap [Moles/Vol] 10.1 mmol/L Normal [facility] Comment on above: Performed By: #### C MREP #### [facility] [address] [address] [address] Jemma Kaur AST [Catalytic activity/Vol] 22 U/L Normal 15-37 [facility] Comment on above: Performed By: #### C MREP #### [facility] [address] [address] [address] Jemma Kaur Bilirubin [Mass/Vol] 1.1 mg/dL Critically high 0.2-1.0 [facility] Comment on above: Performed By: #### C MREP #### [facility] [address] [address] [address] Jemma Kaur Calcium [Mass/Vol] 8.8 mg/dL Normal 8.5-10.1 [facility] Comment on above: Performed By: #### C MREP #### [facility] [address] [address] [address] Jemma Kaur Chloride [Moles/Vol] 101 mmol/L Normal 98-107 [facility] Comment on above: Performed By: #### C MREP #### [facility] [address] [address] [address] Jemma Kaur CO2 [Moles/Vol] 31.0 mmol/L Normal 21.0-32.0 [facility] Comment on above: Performed By: #### C MREP #### [facility] [address] [address] [address] Jmema Kaur Creatinine [Mass/Vol] 0.94 mg/dL Normal 0.55-1.02 [facility] Comment on above: Performed By: #### C MREP #### [facility] [address] [address] [address] Jemma Kaur EGFR-AF VINCENTIAN >60 Normal >=60 [facility] Comment on above: Performed By: #### C MREP #### [facility] [address] [address] [address] Jemma Kaur EGFR-NON AF VINCENTIAN 57 mL/min/1.73m2 Critically low >=60 [facility] Comment on above: Performed By: #### C MREP #### [facility] [address] [address] [address] Jemma Kaur Globulin (S) [Mass/Vol] 3.4 g/dL Normal [facility] Comment on above: Performed By: #### C MREP #### [facility] [address] [address] [address] Jemma Kaur Glucose [Mass/Vol] 170 mg/dL Critically high 74-106 [facility] Comment on above: Performed By: #### C MREP #### [facility] [address] [address] [address] Jemma Kaur Potassium [Moles/Vol] 4.1 mmol/L Normal 3.5-5.1 [facility] Comment on above: Performed By: #### C MREP #### [facility] [address] [place] [address] Dr. Jemma Kaur Protein [Mass/Vol] 7.3 g/dL Normal 6.4-8.2 [facility] Comment on above: Performed By: #### C MREP #### [facility] [address] [place] [address] Dr. Jemma Kaur Sodium [Moles/Vol] 138 mmol/L Normal 136-145 [facility] Comment on above: Performed By: #### C MREP #### [facility] [address] [place] [address] Dr. Jemma Kaur Urea nitrogen [Mass/Vol] 16.0 mg/dL Normal 7.0-18.0 [facility] Comment on above: Performed By: #### C MREP #### [facility] [address] [place] [address] Dr. Jemma Kaur Urea nitrogen/Creatinine [Mass ratio] 17.0 mg/mg Normal [facility] Comment on above: Performed By: #### C MREP #### [facility] [address] [place] [address] Dr. Jemma Kaur URINE MICROSCOPIC ONLYon BACTERIA SMALL Abnormal NONE SEEN [facility] Comment on above: Performed By: #### C BCMAN #### [facility] [address] [place] [address] Dr. Jemma Kaur Bacteria identified Cx Nom (U) INDICATED Normal [facility] Comment on above: Performed By: #### C BCMAN #### [facility] [address] [place] [address] Dr. Jemma Kaur CAST NONE SEEN Normal NONE SEEN [facility] Comment on above: Performed By: #### C BCMAN #### [facility] [address] [place] [address] Dr. Jemma Kaur Crystals LM Nom (Urine sed) NONE SEEN Normal NONE SEEN [facility] Comment on above: Performed By: #### C BCMAN #### [facility] [address] [place] [address] Dr. Jemma Kaur Epithelial cells LM Ql (Urine sed) FEW Abnormal NONE SEEN /RARE [facility] Comment on above: Performed By: #### C BCMAN #### [facility] [address] [address] [address] Jemma Kaur MUCOUS NONE SEEN Normal NONE SEEN [facility] Comment on above: Performed By: #### C BCMAN #### [facility] [address] [address] [address] Jemma Kaur RBC 2-5 Abnormal 0-2 [facility] Comment on above: Performed By: #### C BCMAN #### [facility] [address] [address] [address] Jemma Kaur WBC 10-20 Abnormal NONE SEEN [facility] Comment on above: Performed By: #### C BCMAN #### [facility] [address] [address] [address] Jemma Kaur XR ABD FLAT UP_PA [...] ROHAN HERRON Date: 2021-12-16 18:30 Normal [facility] XR ABD FLAT UP_PA CH EXAMINATION: XR [...] ROHAN HERRON Date: 2021-12-16 01:12 Normal [facility] XR CHEST 1 Von 12-16-2021 XR CHEST [...] ROHAN HERRON Date: 2021-12-16 03:12 Normal [facility] CBC AUTO DIFFon 10-26-2021 BASO # 0.1 103/ul Normal 0.0-0.1 [facility] Comment on above: Performed By: #### C MREP #### [facility] [address] [address] [address] Jemma Kaur Basophils/100 WBC (Bld) 1.2 % Normal 0.2-2.0 [facility] Comment on above: Performed By: #### C MREP #### [facility] [address] [address] [address] Jemma Kaur EO # 0.1 103/ul Normal 0.0-0.7 [facility] Comment on above: Performed By: #### C MREP #### [facility] [address] [place] [address] Dr. Jemma Kaur Eosinophils/100 WBC (Bld) 2.2 % Normal 0.9-7.0 [facility] Comment on above: Performed By: #### C MREP #### [facility] [address] [place] [address] Dr. Jemma Kaur Erythrocyte distribution width (RBC) [Ratio] 12.2 % Normal 11.0-15.0 [facility] Comment on above: Performed By: #### C MREP #### [facility] [address] [place] [address] Dr. Jemma Kaur Hematocrit (Bld) [Volume fraction] 44.7 % Normal 36.0-48.0 [facility] Comment on above: Performed By: #### C MREP #### [facility] [address] [place] [address] Dr. Jemma Kaur Hemoglobin (Bld) [Mass/Vol] 14.9 g/dL Normal 12.0-16.0 [facility] Comment on above: Performed By: #### C MREP #### [facility] [address] [place] [address] Dr. Jemma Kaur IG # 0.02 10e3/ul Normal 0.00-0.03 [facility] Comment on above: Performed By: #### C MREP #### [facility] [address] [place] [address] Dr. Jemma Kaur IG % 0.3 % Normal 0.0-0.5 [facility] Comment on above: Performed By: #### C MREP #### [facility] [address] [place] [address] Dr. Jemma Kaur LYMPH # 1.4 103/ul Normal 1.2-3.8 [facility] Comment on above: Performed By: #### C MREP #### [facility] [address] [place] [address] Dr. Jemma Kaur Lymphocytes/100 WBC (Bld) 23.1 % Normal 20.5-60.0 [facility] Comment on above: Performed By: #### C MREP #### [facility] [facility] [address] [place] [address] Dr. Jemma Kaur MCH (RBC) [Entitic mass] 31.6 pg Normal 26.7-34.0 [facility] Comment on above: Performed By: #### C MREP #### [facility] [address] [place] [address] Dr. Jemma Kaur MCHC (RBC) [Mass/Vol] 33.3 g/dL Normal 29.9-35.2 [facility] Comment on above: Performed By: #### C MREP #### [facility] [address] [place] [address] Dr. Jemma Kaur MCV (RBC) [Entitic vol] 94.9 fL Normal 81.0-99.0 [facility] Comment on above: Performed By: #### C MREP #### [facility] [address] [place] [address] Dr. Jemma Kaur MONO # 0.7 103/ul Normal 0.3-0.8 [facility] Comment on above: Performed By: #### C MREP #### [facility] [address] [place] [address] Dr. Jemma Kaur Monocytes/100 WBC (Bld) 11.4 % Normal 1.7-12.0 [facility] Comment on above: Performed By: #### C MREP #### [facility] [address] [place] [address] Dr. Jemma Kaur NEUT # 3.7 103/ul Normal 1.4-6.5 [facility] Comment on above: Performed By: #### C MREP #### [facility] [address] [place] [address] Dr. Jemma Kaur Neutrophils/100 WBC (Bld) 61.8 % Normal 43.0-75.0 [facility] Comment on above: Performed By: #### C MREP #### [facility] [address] [place] [address] Dr. Jemma Karu Platelet mean volume (Bld) [Entitic vol] 10.1 fL Normal 9.5-13.5 [facility] Comment on above: Performed By: #### C MREP #### [facility] [address] [address] [address] Jemma Kaur PLT 173 103/ul Normal 150-450 [facility] Comment on above: Performed By: #### C MREP #### [facility] [address] [address] [address] Jemma Kaur RBC 4.71 106/ul Normal 4.20-5.40 [facility] Comment on above: Performed By: #### C MREP #### [facility] [address] [address] [address] Jemma Kaur WBC 5.9 103/ul Normal 4.0-11.0 [facility] Comment on above: Performed By: #### C MREP #### [facility] [address] [place] [address] Dr. Jemma Kaur ANNALEE- BMP WITH LIPIDon 2021 Anion gap [Moles/Vol] 11.8 mmol/L Normal [facility] Comment on above: Performed By: #### C BCMAN #### [facility] [address] [place] [address] Dr. Jemma Kaur Calcium [Mass/Vol] 9.0 mg/dL Normal 8.5-10.1 [facility] Comment on above: Performed By: #### C BCMAN #### [facility] [address] [place] [address] Dr. Jemma Kaur Chloride [Moles/Vol] 103 mmol/L Normal 98-107 [facility] Comment on above: Performed By: #### C BCMAN #### [facility] [address] [place] [address] Dr. Jemma Kaur Cholesterol [Mass/Vol] 196 mg/dL Normal <=200 [facility] Comment on above: Performed By: #### C BCMAN #### [facility] [address] [place] [address] Dr. Jemma Kaur Cholesterol in HDL [Mass/Vol] 66 mg/dL Critically high 40-60 [facility] Comment on above: Performed By: #### C BCMAN #### [facility] [address] [address] [address] Jemma Kaur Cholesterol in LDL [Mass/Vol] 116.0 mg/dL Normal [facility] Comment on above: Performed By: #### C ZIYAD #### [facility] [address] [address] [address] Jemma Kaur CO2 [Moles/Vol] 27.4 mmol/L Normal 21.0-32.0 [facility] Comment on above: Performed By: #### C ZIYAD #### [facility] [address] [address] [address] Jemma Kaur Creatinine [Mass/Vol] 1.24 mg/dL Critically high 0.55-1.02 [facility] Comment on above: Performed By: #### C ZIYAD #### [facility] [address] [address] [address] Jemma Kaur EGFR-AF VINCENTIAN 50 mL/min/1.73m2 Critically low >=60 [facility] Comment on above: Performed By: #### C ZIYAD #### [facility] [address] [address] [address] Jemma Kaur EGFR-NON AF VINCENTIAN 42 mL/min/1.73m2 Critically low >=60 [facility] Comment on above: Performed By: #### C ZIYAD #### [facility] [address] [address] [address] Jemma Kaur Glucose [Mass/Vol] 109 mg/dL Critically high 74-106 T [facility] Comment on above: Performed By: #### C ZIYAD #### [facility] [address] [address] [address] Jemma Kaur HDL NORMAL > or = 60 mg/dl - LO W CARDIOVASCULAR RISK <40 mg/dl - HIGH CARDIOVASCULAR RISK Normal [facility] Comment on above: Performed By: #### C ZIYAD #### [facility] [address] [address] [address] Jemma Kaur LDL CALC NORMAL SEE BELOW Normal [facility] Comment on above: Result Comment: <100 mg/dl OPTIMAL 100 - 129 mg/dl NEAR OR ABOVE OPTIMAL 130 - 159 mg/dl BORDERLINE HIGH 160 - 189 mg/dl HIGH >190 mg/dl VERY HIGH Performed By: #### C ZIYAD #### [facility] [address] [place] [address] Dr. Jemma Kaur Potassium [Moles/Vol] 4.2 mmol/L Normal 3.5-5.1 [facility] Comment on above: Performed By: #### C ZIYAD #### [facility] [address] [place] [address] Dr. Jemma Kaur Sodium [Moles/Vol] 138 mmol/L Normal 136-145 [facility] Comment on above: Performed By: #### C ZIYAD #### [facility] [address] [place] [address] Dr. Jemma Kaur Triglyceride [Mass/Vol] 70 mg/dL Normal <=150 [facility] Comment on above: Performed By: #### C ZIYAD #### [facility] [address] [place] [address] Dr. Jemma Kaur Urea nitrogen [Mass/Vol] 15.0 mg/dL Normal 7.0-18.0 [facility] Comment on above: Performed By: #### C ZIYAD #### [facility] [address] [place] [address] Dr. Jemma Kaur Urea nitrogen/Creatinine [Mass ratio] 12.1 mg/mg Normal [facility] Comment on above: Performed By: #### C ZIYAD #### [facility] [address] [place] [address] Dr. Jemma Kaur VLDL CALC 14.0 mg/dL Normal [facility] Comment on above: Performed By: #### C ZIYAD #### [facility] [address] [place] [address] Dr. Jemma Kaur Vital Signs Date Time Vital Sign Value Performing Clinician Facility 02-17-2023 14:00-0400 Body height 170.18 cm Wali Flores Other [facility] Other 02-17-2023 14:00-0400 Body mass index (BMI) [Ratio] 18.73 kg/m2 Wali Flores Other [facility] Other 02-17-2023 14:00-0400 Body weight 54.25 kg Wali Ball Other [facility] Other 02-17-2023 14:00-0400 Diastolic blood pressure 72 mm[Hg] Wali Ball Other [facility] Other 02-17-2023 14:00-0400 Respiratory rate 12 /min Wali Ball Other [facility] Other 02-17-2023 14:00-0400 Systolic blood pressure 156 mm[Hg] Wali Ball Other [facility] Other 04-29-2022 16:30-0500 Body height 170.18 cm Wali Ball Other [facility] Other 04-29-2022 16:30-0500 Body mass index (BMI) [Ratio] 18.13 kg/m2 Wali Ball Other [facility] Other 04-29-2022 16:30-0500 Body weight 52.53 kg Wali Ball Other [facility] Other 04-29-2022 16:30-0500 Diastolic blood pressure 82 mm[Hg] Wali Ball Other [facility] Other 04-29-2022 16:30-0500 Respiratory rate 12 /min Wali Ball Other [facility] Other 04-29-2022 16:30-0500 Systolic blood pressure 122 mm[Hg] Wali Ball Other [facility] Other Encounters Encounter Date Encounter Type Care Provider Facility Start: 03-31-2023 End: 03-31-2023 ambulatory Wali Ball Other [facility] Other Start: 03-31-2023 Telephone encounter Wali Flores [facility] Start: 03-23-2023 End: 03-23-2023 ambulatory Wali Flores Other [facility] Other Start: 03-23-2023 Telephone encounter Wali Flores [facility] Start: 03-02-2023 End: 03-02-2023 ambulatory Wali Flores Other [facility] Other Start: 03-02-2023 Telephone encounter Wali Flores [facility] Start: 02-26-2023 End: 02-26-2023 ambulatory Wali Flores Other [facility] Other Start: 02-26-2023 Telephone encounter Wali Flores [facility] Start: 02-17-2023 End: 02-17-2023 ambulatory Wali Flores Other [facility] Other Start: 02-17-2023 Patient encounter procedure Wali Flores [facility] Start: 02-16-2023 End: 02-16-2023 ambulatory Wali Mark Other [facility] Other Start: 02-16-2023 Telephone encounter Wali Flores [facility] Start: 08-18-2022 End: 09-17-[address] WALI FLORES Facility:[facility] Start: 07-21-2022 End: 08-15-[address] WALI FLORES Facility:[facility] Start: 07-01-2022 End: 07-01-2022 ambulatory Wali Flores Other [facility] Other Start: 07-01-2022 Telephone encounter Wali Mark [facility] Start: 06-18-2022 End: 07-18-[address] WALI FLORES Facility:[facility] Start: 05-21-2022 End: 06-18-2022 ambulatory SHAIKH Jaylan PALMA Facility:[facility] Start: 05-12-[address] WALI FLORES Facili ty:[facility] Start: 05-07-2022 End: 05-21-2022 ambulatory Jaylan LOUIE Facility:[facility] Start: 04-29-2022 End: 04-29-2022 ambulatory Wali Flores Other [facility] Other Start: 04-29-2022 Office outpatient vi sit 25 minutes Wali Flores [facility] Start: 04-27-2022 End: 04-27-2022 ambulatory Wali Flores Other [facility] Other Start: 04-27-2022 Telephone encounter [facility] Start: 04-23-2022 End: 04-23-2022 ambulatory Wali lFores Other [facility] Other Start: 04-23-2022 Telephone encounter Wali Flores [facility] Start: 03-31-2022 End: 04-01-[address] WALI FLORES Facility: Start: 01-24-2022 End: 01-25-[address] WALI FLORES Facility:[facility] Start: 12-25-2021 End: 12-26-2021 [facility] Start: 12-20-2021 ambulatory [facility] Start: 12-19-2021 ambulatory Abdias ARAUJO Facility:[facility] Start: 12-16-2021 End: 12-19-2021 ambulatory Abdias ARAUJO Facility:[id number] Start: 12-16-2021 End: 12-21-2021 Evaluation and management of inpatient DR VINCENT LIM Facility:[facility] Start: 10-26-2021 End: 10-27-[address] MALLORY LISTED REQUEST Facility: Procedures Date Procedure Procedure Detail Performing Clinician Start: 12-16-2021 Excision of Ileum, O pen Approach DR WALI FLORES Screening for malign ant neoplasm of breast Wali Flores Other Immunizations Immunization Date Immunization Notes Care Provider Fa cility 12-30-2021 influenza virus vaccine, split virus (incl. purified surface antigen) Wali Flores Other [facility] Other 06-07-2020 COVID-19 Vaccine Pfi zer - Documentation Purposes Only Wali Flores Other [facility] Other 05-17-2020 COVID-19 Vaccine Moderna - Documentation Purposes Only Wali Flores Other [facility] Other 02-21-2020 influenza virus vaccine, split virus (incl. purified surface antigen) Wali Flores Other [facility] Other 02-14-2019 influenza virus vaccine, split virus (incl. purified surface antigen) Wali Flores Other [facility] Other 01-30-2017 influenza virus vaccine, split virus (incl. purified surface antigen) Wali Flores Other [facility] Other 08-14-2015 pneumococcal conjuga te vaccine, 13 valent Wali Flores Other [facility] Other 07-27-2013 tetanus and diphther ia toxoids, adsorbed, preservative free, for adult use (5 Lf of tetanus toxoid and 2 Lf of diphtheria toxoid) Wali Flores Other [facility] Other 02-11-2013 pneumococcal polysaccharide vaccine, 23 valent Wali Flores Other [facility] Other 02-11-2013 tetanus and diphther ia toxoids, adsorbed, preservative free, for adult use (5 Lf of tetanus toxoid and 2 Lf of diphtheria toxoid) Wali Flores Other [facility] Other Payers Date Payer Category Payer Medicare [id number] 1959 Self-pay 1959 Unknown [id number] 1941 Unknown [id number] 2.16.8 [id number] 1941 Unknown [id number] 2.16.8 [id number] 1941 Unknown [id number] 2.16.8 [id number] 1941 Unknown [id number] 2.16.84 [id number] 1941 Unknown [id number] 2.16.84 [id number] 1941 Unknown [id number] 2.16.84 [id number] 1941 Unknown [id number] 2.16.84 [id number] 1941 Unknown [id number] 2.16.84 [id number] 1941 Unknown [id number] 2.16.84 0.1.463481.3.579.2.593 1941 Unknown [id number] 2.16.84 0.1.695242.3.579.2.593 1941 Unknown [id number] 2.16.84 [id number] 1941 Unknown [id number] 2.16.84 0.1.711280.3.579.2.593 Unknown [id number] 2.16.84 [id number] Social History Date Type Detail Facility Sex Assigned At [facility] Other Evaluation note 03-31-2023 Note Date & Type Note Facility 03-31-2023 Evaluation note Encounter Date Diagnosis Assessment Notes Mar, Alzheimer's disease with late onset (ICD-10 - G30.1) Mar, Dementia in other diseases classified elsewhere, mild, without behavioral disturbance, psychotic disturbance, mood disturbance, and anxiety (ICD-10 - F02.A0) [facility] Other Evaluation note 03-23-2023 Note Date & Type Note Facility 03-23-2023 Evaluation note Encounter Date Diagnosis Assessment Notes Mar, Hypercholesteremia (ICD-10 - E78.00) [facility] Other Evaluation note 02-26-2023 Note Date & Type Note Facility 02-26-2023 Evaluation note Encounter Date Diagnosis Assessment Notes Feb, Paresthesia (ICD-10 - R20.2) Feb, Paroxysmal atrial fibrillation (ICD-10 - I48.0) Feb, MCI (mild cognitive impairment) (ICD-10 - G31.84) Feb, Carotid bruit, unspecified laterality (ICD-10 - R09.89) [facility] Other Evaluation note 02-17-2023 Note Date & [...] are maintaining regular scheduled appts with their frame 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 Jan, Stage 3a chronic kidney disease (ICD-10 [...] living alone, family assisting w/ IADL. [employer] 08/22 MoCA Check B12, TSH, CMP, CBC Check MRI Jan, Fatigue, unspecified type (ICD-10 - R53.83) Healthy diet and exercise. Check labs: CBC, B12, TSH Jan, Screening mammography declined (ICD-10 - Z53.20) Instructed patient on monthly SBE and yearly mammograms. Jan, Other Diet instructions: Smaller portions, avoid eating and laying flat, avoid eating or drinking prior to bedtime. [facility] Other Evaluation note 04-29-2022 Note Date & [...] S/P small bowel resection (ICD-10 - Z90.49) [facility] Other Clinical Note 12-16-2021 Note Date & [...] electrocautery. The abdomen was entered sharply. A Winston retractor was placed. The patient was noted [...] good condition. CC: Wali Flores D.O. [facility] Evaluation note Note Date & Type Note Facility Evaluation note No Information [facility] [employer] Other History general Narrative - Reported Note [...] A 05/02/11 Hospitalization History see surgical history [employer] Other Summary Purpose Family History No Family History Records FoundNo Family History Records Found Advance Directives No Advanced Directives Records FoundNo Advanced Directives Records Found Reason for Referral Reason *FU 03/31 Cognitiv e decline Diagnosis 1 MCI (mild cognitive impairment) (G31.84) Referral Organization [facility] Referring Provider First Name Wali Referring Provider Last Name Mark Referring Provider Specialty Internal Mn lynn Referred Organization [facility] Referred Provider Rohan Wallace Referred Address [address],[place], [place],[address] Referred Provider Specialty Neurology Referral Priority Routine [...] and content) DATE CREATED AUTHOR 01/18/2022 [facility] DATE CREATED AUTHOR AUTHOR'S ORGANIRISH ATION 09/26/2022 [facility] REASON [...] BE BASED ON THE PRIMARY CLINICAL RECORDS. [facility] provides no warranty or guarantee of the accuracy or completeness of information in this document.
== END 2023-04-10 12:41 | disposition home or self-care (01) ==
LOC: LAB 12:42
PROVIDERS: PCP Internal Medicine; Visit Provider Psychiatry & Neurology Neurology
DX: G30.1 Alzheimer's disease with late onset (principal)
CPT/HCPCS: 36415; 82607

== ENCOUNTER 2023-04-20 02:50 | Outpatient (RCR) | payer MEDICARE, OTHER, SELFPAY | END 2023-05-20 17:06 | disposition home or self-care (01) | LOC: MM 02:50 | PROVIDERS: PCP Internal Medicine; Visit Provider Internal Medicine | DX: Z51.81 Encounter for therapeutic drug level monitoring (principal); Z79.01 Long term (current) use of anticoagulants; I48.0 Paroxysmal atrial fibrillation ==

== ENCOUNTER 2023-05-21 01:41 | Outpatient (RCR) | payer MEDICARE, OTHER, SELFPAY | END 2023-06-18 17:39 | disposition home or self-care (01) | LOC: MM 01:41 | PROVIDERS: PCP Internal Medicine; Visit Provider Internal Medicine | DX: Z51.81 Encounter for therapeutic drug level monitoring (principal); Z79.01 Long term (current) use of anticoagulants ==

== ENCOUNTER 2023-06-19 03:22 | Outpatient (RCR) | payer MEDICARE, OTHER, SELFPAY | END 2023-07-17 13:59 | disposition home or self-care (01) | LOC: MM 03:22 | PROVIDERS: PCP Internal Medicine; Visit Provider Internal Medicine | DX: Z51.81 Encounter for therapeutic drug level monitoring (principal); Z79.01 Long term (current) use of anticoagulants; I48.0 Paroxysmal atrial fibrillation ==

== ENCOUNTER 2023-07-20 00:17 | Outpatient (RCR) | payer MEDICARE, OTHER, SELFPAY | END 2023-08-18 17:58 | disposition home or self-care (01) | LOC: MM 00:17 | PROVIDERS: PCP Internal Medicine; Visit Provider Internal Medicine | DX: Z51.81 Encounter for therapeutic drug level monitoring (principal); Z79.01 Long term (current) use of anticoagulants; I48.0 Paroxysmal atrial fibrillation ==

== ENCOUNTER 2023-08-19 00:21 | Outpatient (RCR) | payer MEDICARE, OTHER, SELFPAY | END 2023-09-18 11:18 | disposition home or self-care (01) | LOC: MM 00:21 | PROVIDERS: PCP Internal Medicine; Visit Provider Internal Medicine | DX: Z51.81 Encounter for therapeutic drug level monitoring (principal); Z79.01 Long term (current) use of anticoagulants; I48.0 Paroxysmal atrial fibrillation | CPT/HCPCS: 85610; G0463 ==

== ENCOUNTER 2023-08-26 13:00 | Outpatient (OUT) | payer MEDICARE, OTHER, SELFPAY ==
[2023-08-26 14:30] LABS: Bilirubin Urine MODERATE (NEGATIVE); Blood Urine LARGE (NEGATIVE); Clarity Urine CLOUDY (CLEAR); Color Urine DK. BROWN (YELLOW); Glucose Urine UA NEGATIVE (NEGATIVE); Ketones Urine 15 mg/dL (NEGATIVE); Leukocyte Esterase Urine SMALL (NEGATIVE); Nitrite Urine POSITIVE (NEGATIVE); Protein Urine >=300 mg/dL (NEG/TRACE); Specific Gravity Urine 1.025 (1.005-1.025); pH Urine 6.5 (5.0-9.0)
== END 2023-08-26 13:01 | disposition home or self-care (01) ==
LOC: LAB 13:01
PROVIDERS: PCP Internal Medicine; Visit Provider Internal Medicine
DX: R30.0 Dysuria (principal)
CPT/HCPCS: 81003; 87086

== ENCOUNTER 2023-09-21 03:07 | Outpatient (RCR) | payer MEDICARE, OTHER, SELFPAY | END 2023-10-16 10:00 | disposition home or self-care (01) | LOC: MM 03:07 | PROVIDERS: PCP Internal Medicine; Visit Provider Internal Medicine | DX: Z51.81 Encounter for therapeutic drug level monitoring (principal); Z79.01 Long term (current) use of anticoagulants; I48.0 Paroxysmal atrial fibrillation | CPT/HCPCS: 85610; G0463 ==

== ENCOUNTER 2023-10-19 00:34 | Outpatient (RCR) | payer MEDICARE, OTHER, SELFPAY | END 2023-11-18 10:16 | disposition home or self-care (01) | LOC: MM 00:34 | PROVIDERS: PCP Internal Medicine; Visit Provider Internal Medicine | DX: Z51.81 Encounter for therapeutic drug level monitoring (principal); Z79.01 Long term (current) use of anticoagulants; I48.0 Paroxysmal atrial fibrillation ==

== ENCOUNTER 2023-11-19 00:26 | Outpatient (RCR) | payer MEDICARE, OTHER, SELFPAY | END 2023-12-18 10:21 | disposition home or self-care (01) | LOC: MM 00:26 | PROVIDERS: PCP Internal Medicine; Visit Provider Internal Medicine | DX: Z51.81 Encounter for therapeutic drug level monitoring (principal); Z79.01 Long term (current) use of anticoagulants; I48.0 Paroxysmal atrial fibrillation ==

== ENCOUNTER 2023-12-21 01:47 | Outpatient (RCR) | payer MEDICARE, OTHER, SELFPAY | END 2024-01-18 23:47 | disposition home or self-care (01) | LOC: MM 01:47 | PROVIDERS: PCP Internal Medicine; Visit Provider Internal Medicine | DX: Z51.81 Encounter for therapeutic drug level monitoring (principal); Z79.01 Long term (current) use of anticoagulants; I48.0 Paroxysmal atrial fibrillation ==

== ENCOUNTER 2024-01-19 02:36 | Outpatient (RCR) | payer MEDICARE, OTHER, SELFPAY | END 2024-02-18 23:26 | disposition home or self-care (01) | LOC: MM 02:36 | PROVIDERS: PCP Internal Medicine; Visit Provider Internal Medicine | DX: Z51.81 Encounter for therapeutic drug level monitoring (principal); Z79.01 Long term (current) use of anticoagulants; I48.0 Paroxysmal atrial fibrillation ==